=== PATIENT | female | born 1935 | race Hispanic/Latino ===

== ENCOUNTER 2018-05-19 14:54 | Emergency (ER) | payer MEDICARE ==
[2018-05-19 15:10] VITALS: RESP 18
--- NOTE | 2018-05-19 16:28 | ED PDOC ---
Arrival/HPI - General Chief Complaint: Upper Extremity Problem/Injury Time Seen by Provider: 05/19/18 15:10 Historian: Patient - History of Present Illness Narrative History of Present Illness (Text): 05/19/18 16:23 Pt is an 82 yr old female with PMH of COPD who presents to the ED for a warm, red and swollen elbow s/p recent emergency admission in [place] for COPD exacerbation about a week ago. Pt reports that EMS forced an IV into her right antecubital which apparently bled profusely at the time. The IV was kept in place the entire time she was admitted however anther site/arm was used for blood draws and medication as per pt. She now has worsening pain and swelling of the right antecubital that keeps her up at night. Denies chest pain, sob, fever, chills, IV drug use, change in hand or arm sensation or motor function or trauma. Time/Duration: 1 week Symptom Onset: Gradual Symptom Course: Unchanged Quality: Pressure Severity Level: 3 Activities at Onset: Rest Context: Home Past Medical History - Provider Review Nursing Documentation Reviewed: Yes - Travel History Have you recently traveled outside [place] w/in the past 3 mons?: No - Infectious Disease Hx of Infectious Diseases: None - Reproductive Menopause: Yes - Cardiac Hx Hypertension: Yes - Pulmonary Hx Respiratory Disorders: Yes Hx Chronic Obstructive Pulmonary Disease (COPD): Yes - Neurological Hx Neurological Disorder: Yes Hx Transient Ischemic Attacks (TIA): Yes - HEENT Hx Deafness: Yes (hearing aid rt ear) - Renal Hx Renal Disorder: No - Psychiatric Hx Psychophysiologic Disorder: No Hx Substance Use: No - Surgical History Hx Hysterectomy: Yes Other/Comment: rt breast ca& lumpectomy - Anesthesia Hx Anesthesia: Yes Hx Anesthesia Reactions: No Family/Social History - Physician Review Nursing Documentation Reviewed: Yes Family/Social History: Unknown Family HX Smoking Status: Unknown If Ever Smoked Hx Alcohol Use: No Hx Substance Use: No Allergies/Home Meds Allergies/Adverse Reactions: Allergies iodine Allergy (Verified 05/19/18 15:11) RASH Iodine and Iodide Containing Produc Allergy (Verified 05/19/18 15:11) RASH Home Medications: Home Meds Medication Instructions Recorded Confirmed Aspirin [Ecotrin] 81 mg PO DAILY 05/19/18 05/19/18 Clopidogrel [Plavix] 75 mg PO DAILY 05/19/18 05/19/18 amLODIPine [Norvasc] 5 mg PO DAILY 05/19/18 05/19/18 Review of Systems - Review of Systems Constitutional: Normal. absent: Fevers Eyes: Normal ENT: Normal Respiratory: Normal. absent: SOB Cardiovascular: Normal. absent: Chest Pain Gastrointestinal: Normal. absent: Abdominal Pain Genitourinary Female: Normal Musculoskeletal: Normal. absent: Arthralgias, Joint Swelling Skin: Normal, Cellulitis (Right antecubital post IV placement) Neurological: Normal. absent: Headache Endocrine: Normal. absent: Diaphoresis Hemo/Lymphatic: Normal, Easy Bleeding (on plavix). absent: Adenopathy Psychiatric: Normal Physical Exam Vital Signs Reviewed: Yes Vital Signs Temp Pulse Resp BP Pulse Ox 05/19/18 18:15 98.6 F 82 18 117/82 99 05/19/18 15:02 98.7 F 70 18 113/66 97 Temperature: Afebrile Blood Pressure: Normal Pulse: Regular Respiratory Rate: Normal Appearance: Positive for: Well-Appearing, Non-Toxic, Comfortable Pain Distress: Mild Mental Status: Positive for: Alert and Oriented X 3 - Systems Exam Head: Present: Atraumatic, Normocephalic Neck: Present: Normal Range of Motion Respiratory/Chest: Present: Clear to Auscultation, Good Air Exchange. No: Respiratory Distress, Accessory Muscle Use Cardiovascular: Present: Regular Rate and Rhythm, Normal S1, S2. No: Murmurs Abdomen: Present: Normal Bowel Sounds. No: Tenderness, Distention, Peritoneal Signs Back: Present: Normal Inspection Upper Extremity: Present: Normal Inspection, Normal ROM, NORMAL PULSES, Tenderness, Swelling, Erythema, Neurovascularly Intact, Temperature Abnormalties , Capillary Refill < 2s, Norm 2-Pt Discrimination. No: Cyanosis, Edema, Deformity Lower Extremity: Present: Normal Inspection, NORMAL PULSES. No: Edema Neurological: Present: GCS=15, CN II-XII Intact, Speech Normal Skin: Present: Warm, Dry, Normal Color, Other (right antecubital aspect extending 2cm inferior to crease; erythema, edema and firm subdermal tissue; no fluctuant area or drainage ). No: Rashes Psychiatric: Present: Alert, Oriented x 3, Normal Insight, Normal Concentration Medical Decision Making ED Course and Treatment: 05/19/18 16:28 Impression Pt is an 82 yr old female with PMH of COPD who presents to the ED for a warm, red and swollen elbow s/p recent emergency admission in [place] for COPD exacerbation about a week ago. Likely extravisation at IV site causing fibrosis but will consider cellulitis and foreign body Plan plain film of right elbow Ancef 1g IM assess and dispo Progress note 05/19/18 17:48 RIGHT ELBOW XR UNREMARKABLE for foreign body Pt is walking around and ready to go home; discussed findings with pt and advised to take Clindamycin x 5 days; dose given stat take Tylenol Xtra strength for pain Ice 15 mins on and 15 mins off VSS on d/c f/u with PMD in next 2 days return to ER if worsening pain, fever, change in sensation of right UE - RAD Interpretation Narrative RAD Interpretations (Text): 05/19/18 17:48 PROCEDURE: Radiographs of the right elbow. HISTORY: Elbow pain COMPARISON: No prior. FINDINGS: BONES: Normal. No fracture. JOINTS: Normal. No osteoarthritis. SOFT TISSUES: Normal. JOINT EFFUSION: None. OTHER FINDINGS: None. IMPRESSION: Unremarkable radiographs of the right elbow. Radiology Orders: 05/19/18 16:16 ELBOW RIGHT 3 VIEWS ROUTINE [RAD] Stat - Medication Orders Current Medication Orders: Discontinued Medications Clindamycin HCl (Cleocin) 300 mg PO STAT STA PRN Reason: Protocol Stop: 05/19/18 16:39 Last Admin: 05/19/18 16:49 Dose: 300 mg Disposition/Present on Arrival - Present on Arrival Any Indicators Present on Arrival: Yes History of DVT/PE: No History of Uncontrolled Diabetes: No Urinary Catheter: No History of Decub. Ulcer: No History Surgical Site Infection Following: None - Disposition Have Diagnosis and Disposition been Completed?: Yes Diagnosis: Cellulitis of right elbow, Extravasation injury, Extravasation injury of intravenous catheter site with other complication Disposition: HOME/ ROUTINE Disposition Time: 17:51 Patient Plan: Discharge Condition: GOOD Discharge Instructions (ExitCare): Cellulitis (Skin Infection), Adult (DC), IV Infiltration Additional Instructions: KRIS URENA, thank you for letting us take care of you today. Your provider was Harish Bennett MD and ROSALINE Vaughan and you were treated for RIGHT ARM CELLULITIS. The emergency medical care you received today was directed at your acute symptoms. If you were prescribed any medication, please fill it and take as directed. It may take several days for your symptoms to resolve. Return to the Emergency Department if your symptoms worsen, do not improve, or if you have any other problems. PLEASE SEE YOUR PRIMARY CARE DOCTOR IN THE NEXT FEW DAYS FOR FOLLOW UP CARE APPLY COLD PACK TO RIGHT ARM 15 MINS ON AND 15 MINS OFF; TAKE THE ANTIBIOTIC DIRECTED UNTIL FINISHED; TAKE TYLENOL FOR PAIN CONTROL Please contact your doctor or call one of the physicians/clinics you have been referred to that are listed on the Patient Visit Information form that is included in your discharge packet. Bring any paperwork you were given at discharge with you along with any medications you are taking to your follow up visit. Our treatment cannot replace ongoing medical care by a primary care provider outside of the emergency department. Thank you for allowing the [facility] team to be part of your care today. If you had an X-Ray or CT scan: A Radiologist will review the ED reading if any change in treatment is needed we will contact you. Prescriptions: Acetaminophen [Non-Aspirin Pain Relief] 500 mg PO Q6 #20 tablet Clindamycin [Cleocin] 300 mg PO QID 7 Days #28 cap Forms: [employer] (Georgian)
--- NOTE | 2018-05-19 17:08 | RAD ---
PROCEDURE: Radiographs of the right elbow. HISTORY: Elbow pain COMPARISON: No prior. FINDINGS: BONES: Normal. No fracture. JOINTS: Normal. No osteoarthritis. SOFT TISSUES: Normal. JOINT EFFUSION: None. OTHER FINDINGS: None. IMPRESSION: Unremarkable radiographs of the right elbow.
[2018-05-19 18:36] VITALS: BP 117/82; PULSE 82; TEMP 98.6; O2SAT 99
== END 2018-05-19 18:15 | disposition home or self-care (01) ==
LOC: ED 14:54
DX: L03.113 Cellulitis of right upper limb (principal); T80.89XA Other complications following infusion, transfusion and therapeutic injection, initial encounter; Y84.8 Other medical procedures as the cause of abnormal reaction of the patient, or of later complication, without mention of misadventure at the time of the procedure; Y92.238 Other place in hospital as the place of occurrence of the external cause

== ENCOUNTER 2018-05-24 13:56 | Inpatient (IN) | payer MEDICARE, OTHER ==
[2018-05-24 13:59] VITALS: BMI 20.6
[2018-05-24 15:56] LABS: BASO # 0.03 K/mm3 (0.0-2.0); BASO % 0.3 % (0.0-3.0); EOS # 0.7 (0.0-0.7); EOS % 6.1 % (1.5-5.0); GRAN # 7.85 (1.4-6.5); GRAN % 71.6 % (50.0-68.0); HEMOGLOBIN 13.7 g/dL (12.0-16.0); LYMPH # 1.9 (1.2-3.4); LYMPH % 17.7 % (22.0-35.0); MEAN CELL VOLUME 83.5 fl (80.0-105.0); MEAN CORPUSCULAR HEMOGLOBIN 27.9 pg (25.0-35.0); MEAN CORPUSCULAR HGB CONC 33.4 g/dl (31.0-37.0); MONO # 0.5 (0.1-0.6); MONO % 4.3 % (1.0-6.0); RBC 4.91 10^6/uL (3.5-6.1); RED CELL DISTRIBUTION WIDTH 15.4 % (11.5-14.5)
[2018-05-24 16:06] LABS: ALB/GLOB RATIO 0.9 (1.1-1.8); ALBUMIN 3.7 g/dL (3.0-4.8); ALT/SGPT 32 U/L (7-56); AST/SGOT 19 U/L (14-36); BLOOD UREA NITROGEN 13 mg/dL (7-21); CALCIUM 9.5 mg/dL (8.4-10.5); GFR AFRICAN-AMERICAN > 60; GFR NON-AFRICAN AMERICAN 53
--- NOTE | 2018-05-24 16:50 | US ---
PROCEDURE: Right upper extremity venous US CLINICAL HISTORY: Arm pain and swelling Evaluate for deep venous thrombosis. PHYSICIAN(S): Manny Zamora M.D FINDINGS: Above the elbow, there is superficial thrombophlebitis in a left basilic vein branch with associated edema. No sonographic evidence of deep venous thrombosis is appreciated central IMPRESSION: 1. Acute superficial thrombophlebitis, left basilic vein branch above the elbow 2. No evidence of deep venous thrombosis.
[2018-05-24] MEDS ORDERED: Vancomycin 1gm in NS 250ml 1 GM/250 ML BAG IVPB STA (17:29)
[2018-05-24] MEDS ORDERED: Piperacillin/Tazobact 3.375 gm 100 ML IVPB STA (17:29)
--- NOTE | 2018-05-24 18:54 | CP.PCM.HP ---
<Jung Thompson - Last Filed: 05/24/18 20:28> History of Present Illness - History of Present Illness History of Present Illness: Ms. Burnett is a 82 year old female with PMH of COPD, asthma, TIA on plavix, and HTN presenting to the ED for a red, swollen right elbow. Patient states that 3 weeks ago, she was admitted at a hospital in [place] for a COPD exacerbation and in the ambulance, EMS placed an IV into her right antecubital and bled profusely. As per patient, the IV was placed in her right arm for 4 days while she is in the hospital however, they started a new IV line on her left arm to be used to administer medication. The patient cam in to the ED on 05/19 for pain and swelling of her right elbow and was sent home with clindamycin for 7 days and she finished 5 days course of the medication so far. The patient states that the swelling and pain is getting worse. She describes the pain to be 8/10 and achy all around her antecubital area and elbow. The patient denies any headaches, fevers, chills, shortness of breath, chest pain, abdominal pain, burning or difficulty urinating. PMD: Dr. Almonte Pharmacy: [facility] in [place] PMH: COPD, asthma, HTN, TIA on plavix Past surgical history: hysterectomy, lumpectomy Social history: Never smoked, drinks alcohol occasionally, denies use of recreational drugs. Family history: Mother of cancer, sister of neck cancer at 59 yo, brother of blood cancer at 42 yo. 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 Allergie: Iodine Home meds: Amlodipine 5mg Clopidogrel 5mg ASA 81 Acetaminophen Symbicort PRN Albuterol PRN Present on Admission - Present on Admission Any Indicators Present on Admission: No History of DVT/PE: No History of Uncontrolled Diabetes: No Urinary Catheter: No Decubitus Ulcer Present: No Review of Systems - Review of Systems Review of Systems: A 12 point review of systems was negative except for pertinent positive as discussed in the HPI Past Patient History - Infectious Disease Hx of Infectious Diseases: None - Tetanus Immunizations Tetanus Immunization: Unknown - Past Social History Smoking Status: Never Smoked - CARDIAC Hx Hypertension: Yes - PULMONARY Hx Respiratory Disorders: Yes Hx Chronic Obstructive Pulmonary Disease (COPD): Yes - NEUROLOGICAL Hx Neurological Disorder: Yes Hx Transient Ischemic Attacks (TIA): Yes - HEENT Hx Deafness: Yes (hearing aid rt ear) - RENAL Hx Chronic Kidney Disease: No - PSYCHIATRIC Hx Psychophysiologic Disorder: No Hx Substance Use: No - SURGICAL HISTORY Hx Hysterectomy: Yes Other/Comment: rt breast ca& lumpectomy - ANESTHESIA Hx Anesthesia: Yes Hx Anesthesia Reactions: No Meds Allergies/Adverse Reactions: Allergies Allergy/AdvReac Type Severity Reaction Status Date / Time iodine Allergy RASH Verified 05/19/18 15:11 Iodine and Iodide Containing Allergy RASH Verified 05/19/18 15:11 Produc Physical Exam - Constitutional Appears: No Acute Distress - Head Exam Head Exam: ATRAUMATIC, NORMAL INSPECTION - Eye Exam Eye Exam: Normal appearance, PERRL - ENT Exam ENT Exam: Mucous Membranes Moist - Respiratory Exam Respiratory Exam: Clear to Auscultation Bilateral. absent: Rales, Rhonchi, Wheezes - Cardiovascular Exam Cardiovascular Exam: REGULAR RHYTHM, +S1, +S2. absent: Gallop, Rubs, Systolic Murmur - GI/Abdominal Exam GI & Abdominal Exam: Normal Bowel Sounds, Soft. absent: Tenderness - Extremities Exam Extremities exam: Negative for: calf tenderness, pedal edema - Neurological Exam Neurological exam: Alert, CN II-XII Intact, Oriented x3 - Psychiatric Exam Psychiatric exam: Normal Affect, Normal Mood - Skin Skin Exam: Dry, Normal Color, Warm Additional comments: Right antecubital aspect extending 2cm inferior to crease; erythema, edema and firm subdermal tissue; no fluctuant area or drainage Results - Vital Signs Recent Vital Signs: Last Vital Signs Temp 98.2 F 05/24/18 13:58 Pulse 84 05/24/18 13:58 Resp 18 05/24/18 13:58 BP 147/73 05/24/18 13:58 Pulse Ox 98 05/24/18 13:58 - Labs Result Diagrams: 05/24/18 15:35 05/24/18 15:35 Labs: Laboratory Results - last 24 hr 05/24/18 05/24/18 15:35 15:35 WBC 11.0 RBC 4.91 Hgb 13.7 Hct 41.0 MCV 83.5 MCH 27.9 MCHC 33.4 RDW 15.4 H Plt Count 364 MPV 9.0 Gran % 71.6 H Lymph % (Auto) 17.7 L [place] % (Auto) 4.3 Eos % (Auto) 6.1 H Baso % (Auto) 0.3 Gran # 7.85 H Lymph # (Auto) 1.9 [place] # (Auto) 0.5 Eos # (Auto) 0.7 Baso # (Auto) 0.03 Sodium 146 Potassium 4.7 Chloride 105 Carbon Dioxide 30 Anion Gap 15 BUN 13 Creatinine 1.0 Est GFR ( Amer) > 60 Est GFR (Non-Af Amer) 53 Random Glucose 99 Calcium 9.5 Total Bilirubin 0.3 AST 19 ALT 32 Alkaline Phosphatase 114 Total Protein 7.6 Albumin 3.7 Globulin 3.9 Albumin/Globulin Ratio 0.9 L Assessment & Plan - Assessment and Plan (Free Text) Assessment: Ms. Burnett is a 82 year old female with PMH of COPD, asthma, HTN, and TIA on plavix presenting with swelling and pain of the right antecubital area of the arm. Plan: Extravisation of IV site - Extremity u/s showed acute superficial thrombophlebitis of left basilic vein above the elbow. No DVT. - Patient is abrebile and wbc is 11. - Elbow xray (05/19) was negative. - Upper extremity CAT scan: pending - If CT shows abscess, consult surgery. - In Ed, Vancomycin IV 1gr/250ml - Start Zosyn IV and Vancomycin IV - Order Vancomycin trough after 3rd dose and before 4th dose - Blood culture ordered. - ID consulted, recs appreciated - EKG pending, PT and PTT ordered - ESR, CRP ordered Hypertension - Hold Amlodipine for now - monitor BP History of TIA - Continue with ASA, clopidogrel - Lipid panel ordered - Hb a1c ordered History of COPD and Asthma - Patient is stable - Ventolin PRN GI/DVT prophylaxis - Protonix - Lovenox subQ - SCD's Patient seen, examined, and case discussed with Dr. Amezcua <Gregg Amezcua - Last Filed: 05/26/18 16:28> Results - Vital Signs Recent Vital Signs: Last Vital Signs Temp 97.4 F L 05/26/18 07:44 Pulse 68 05/26/18 07:44 Resp 18 05/26/18 07:44 BP 135/67 05/26/18 07:44 Pulse Ox 96 05/26/18 07:44 - Labs Result Diagrams: 05/26/18 05:30 05/26/18 05:30 Labs: Laboratory Results - last 24 hr 05/26/18 05/26/18 05/26/18 05:30 05:30 12:30 WBC 9.0 RBC 4.40 Hgb 12.0 Hct 36.6 MCV 83.2 MCH 27.3 MCHC 32.8 RDW 15.1 H Plt Count 362 MPV 8.9 Gran % 70.6 H Lymph % (Auto) 16.7 L [place] % (Auto) 6.0 Eos % (Auto) 6.4 H Baso % (Auto) 0.3 Gran # 6.37 Lymph # (Auto) 1.5 [place] # (Auto) 0.5 Eos # (Auto) 0.6 Baso # (Auto) 0.03 Sodium 139 Potassium 3.9 Chloride 102 Carbon Dioxide 30 Anion Gap 11 BUN 7 Creatinine 0.9 Est GFR ( Amer) > 60 Est GFR (Non-Af Amer) > 60 Random Glucose 111 H Calcium 8.8 Magnesium 2.1 Total Bilirubin 0.4 Direct Bilirubin 0.2 AST 20 ALT 26 Alkaline Phosphatase 86 Total Protein 6.8 Albumin 3.3 Globulin 3.5 Albumin/Globulin Ratio 0.9 L Urine Color Yellow Urine Appearance Clear Urine pH 6.0 Ur Specific Center 1.020 Urine Protein Trace H Urine Glucose (UA) Negative Urine Ketones Negative Urine Blood Negative Urine Nitrate Negative Urine Bilirubin Negative Urine Urobilinogen 0.2 Ur Leukocyte Esterase Negative Urine RBC 0 - 2 Urine WBC 0 - 2 Ur Epithelial Cells 4 - 5 Urine Bacteria Mod Attending/Attestation - Attestation I have personally seen and examined this patient.: Yes I have fully participated in the care of the patient.: Yes I have reviewed all pertinent clinical information: Yes Notes (Text): Please see/read my dictated notes.
--- NOTE | 2018-05-24 19:02 | ED PDOC ---
Arrival/HPI - General Chief Complaint: Upper Extremity Problem/Injury Time Seen by Provider: 05/24/18 15:01 Historian: Patient - History of Present Illness Narrative History of Present Illness (Text): 05/24/18 18:59 82-year-old female presents today with right arm pain swelling and erythema. Patient states 3-4 weeks ago she had an IV inserted in the right arm and was hospitalized for 4 days for COPD exacerbation. Patient states on May 19 she came to the emergency room because the arm suddenly became red and swollen and painful. Patient states she had x-rays of the right arm and then was placed on clindamycin for infection in the arm. Patient states she completed a course of clindamycin and she still is having pain redness and swelling. Patient denies fevers or chills. Patient states there is no improvement in the right arm. pt denies cp or sob. no vomiting/diarrhea. no abdominal pain. pt denies numbness, weakness, tingling in extremities. no other complaints. Past Medical History - Provider Review Nursing Documentation Reviewed: Yes - Travel History Have you recently traveled outside [place] w/in the past 3 mons?: No - Infectious Disease Hx of Infectious Diseases: None - Tetanus Immunization Tetanus Immunization: Unknown - Cardiac Hx Hypertension: Yes - Pulmonary Hx Respiratory Disorders: Yes Hx Chronic Obstructive Pulmonary Disease (COPD): Yes - Neurological Hx Neurological Disorder: Yes Hx Transient Ischemic Attacks (TIA): Yes - HEENT Hx Deafness: Yes (hearing aid rt ear) - Renal Hx Renal Disorder: No - Psychiatric Hx Psychophysiologic Disorder: No Hx Substance Use: No - Surgical History Hx Hysterectomy: Yes Other/Comment: rt breast ca& lumpectomy - Anesthesia Hx Anesthesia: Yes Hx Anesthesia Reactions: No Family/Social History - Physician Review Nursing Documentation Reviewed: Yes Family/Social History: Unknown Family HX Smoking Status: Unknown If Ever Smoked Hx Alcohol Use: No Hx Substance Use: No Allergies/Home Meds Allergies/Adverse Reactions: Allergies iodine Allergy (Verified 05/19/18 15:11) RASH Iodine and Iodide Containing Produc Allergy (Verified 05/19/18 15:11) RASH Home Medications: Home Meds Medication Instructions Recorded Confirmed Aspirin [Ecotrin] 81 mg PO DAILY 05/19/18 05/24/18 Clopidogrel [Plavix] 75 mg PO DAILY 05/19/18 05/24/18 amLODIPine [Norvasc] 5 mg PO DAILY 05/19/18 05/24/18 Review of Systems - Review of Systems Constitutional: absent: Fatigue, Fevers Respiratory: absent: SOB, Cough Cardiovascular: absent: Chest Pain, Palpitations Gastrointestinal: absent: Abdominal Pain, Vomiting Genitourinary Female: absent: Dysuria Musculoskeletal: Arthralgias Skin: Cellulitis. absent: Pruritis Neurological: absent: Headache, Dizziness Psychiatric: absent: Anxiety, Depression Physical Exam Vital Signs Reviewed: Yes Vital Signs Temp Pulse Resp BP Pulse Ox 05/24/18 13:58 98.2 F 84 18 147/73 98 Temperature: Afebrile Blood Pressure: Normal Pulse: Regular Respiratory Rate: Normal Appearance: Positive for: Well-Appearing, Non-Toxic, Comfortable Pain Distress: None Mental Status: Positive for: Alert and Oriented X 3 - Systems Exam Head: Present: Atraumatic Mouth: Present: Moist Mucous Membranes Neck: Present: Normal Range of Motion Respiratory/Chest: Present: Clear to Auscultation, Good Air Exchange. No: Respiratory Distress, Accessory Muscle Use Cardiovascular: Present: Regular Rate and Rhythm, Normal S1, S2. No: Murmurs Upper Extremity: Present: NORMAL PULSES, Tenderness (right arm; + erythema and induration along the volar aspect of the proximal forearm, + swelling over anticubital fossa. no fluctuance, + warmth. ), Swelling, Erythema, Neurovascularly Intact, Capillary Refill < 2s Neurological: Present: GCS=15, Speech Normal Skin: Present: Warm, Dry, Normal Color Psychiatric: Present: Alert, Oriented x 3 Medical Decision Making ED Course and Treatment: 05/24/18 19:18 82-year-old female with right arm pain and swelling status post IV insertion 3 weeks prior cbc; wnl cmp; wnl blood cultures pending Duplex right arm: FINDINGS: Above the elbow, there is superficial thrombophlebitis in a left basilic vein branch with associated edema. No sonographic evidence of deep venous thrombosis is appreciated central IMPRESSION: 1. Acute superficial thrombophlebitis, left basilic vein branch above the elbow 2. No evidence of deep venous thrombosis pt started on vancomycin and zosyn IV tramadol given for pain case discussed with dr. villeda; accepts admission for failure of outpatient abx with superfical thrombophlebitis with superimposed cellulitis. Dr. Villeda is requesting CAT scan of the right arm. Patient was seen and evaluated by dr. lerma Impression: Superficial thrombophlebitis, cellulitis, arm, failure of outpatient abx admit to med/surg - Lab Interpretations Lab Results: 05/24/18 15:35 05/24/18 15:35 Lab Results 05/24/18 15:35: WBC 11.0, RBC 4.91, Hgb 13.7, Hct 41.0, MCV 83.5, MCH 27.9, MCHC 33.4, RDW 15.4 H, Plt Count 364, MPV 9.0, Gran % 71.6 H, Lymph % (Auto) 17.7 L, [place] % (Auto) 4.3, Eos % (Auto) 6.1 H, Baso % (Auto) 0.3, Gran # 7.85 H , Lymph # (Auto) 1.9, [place] # (Auto) 0.5, Eos # (Auto) 0.7, Baso # (Auto) 0.03 05/24/18 15:35: Sodium 146, Potassium 4.7, Chloride 105, Carbon Dioxide 30, Anion Gap 15, BUN 13, Creatinine 1.0, Est GFR ( Amer) > 60, Est GFR (Non- Af Amer) 53, Random Glucose 99, Calcium 9.5, Total Bilirubin 0.3, AST 19, ALT 32 , Alkaline Phosphatase 114, Total Protein 7.6, Albumin 3.7, Globulin 3.9, Albumin/Globulin Ratio 0.9 L - RAD Interpretation Radiology Orders: 05/24/18 15:01 DUPLEX UPPER EXTRM VEIN RIGHT [US] Stat - Medication Orders Current Medication Orders: Vancomycin HCl (Vancomycin 1gm) 1 gm in 250 mls @ 167 mls/hr IVPB STAT STA PRN Reason: Protocol Stop: 05/24/18 18:58 Discontinued Medications Piperacillin Sod/Tazobactam Sod (Zosyn 3.375 In Ns 100ml) 100 mls @ 200 mls/hr IVPB STAT STA PRN Reason: Protocol Stop: 05/24/18 17:58 Last Admin: 05/24/18 18:09 Dose: 200 mls/hr eMAR Start Stop Document 05/24/18 18:09 GMD (Rec: 05/24/18 18:09 GMD [email or web address] Intravenous Solution Start Date 05/24/18 Start Time 18:09 End Date 05/24/18 End time 18:39 Total Infusion Time 30 Tramadol HCl (Ultram) 50 mg PO STAT STA Stop: 05/24/18 18:52 Disposition/Present on Arrival - Present on Arrival Any Indicators Present on Arrival: No History of DVT/PE: No History of Uncontrolled Diabetes: No Urinary Catheter: No History of Decub. Ulcer: No History Surgical Site Infection Following: None - Disposition Have Diagnosis and Disposition been Completed?: Yes Diagnosis: Cellulitis of arm, Superficial thrombophlebitis of arm, Failure of outpatient treatment Disposition: HOSPITALIZED Disposition Time: 17:35 Patient Plan: Admission Condition: FAIR
[2018-05-24] MEDS ORDERED: Enoxaparin 60 mg Syringe SC STA (19:57)
[2018-05-24] MEDS ORDERED: Albuterol HFA 90 mcg/actuation (8 g) IH PRN (20:26)
[2018-05-24] MEDS ORDERED: Albuterol 0.083% Inhal Sol (2.5 mg/3 mL) UD IH PRN (20:32)
[2018-05-24] MEDS ORDERED: Mupirocin 2% Ointment 15 GM TUBE TOP SCH (21:00)
[2018-05-24] MEDS: Mupirocin 2% Ointment 15 GM TUBE TOP SCH (21:33)
--- NOTE | 2018-05-24 21:43 | CP.PCM.CON ---
<Kadie Voss - Last Filed: 05/24/18 21:36> History of Present Illness - History of Present Illness History of Present Illness: General Surgery consult note for Dr. Queen Consulted for: right elbow thrombophlebitis with cellulitis Patient is an 82F who was recently hospitalized for 4 days two weeks ago for respiratory distress during which time she had an IV placed in her right anticubital fossa. After it was removed she noted some swelling and bruising in the area and was told to put ice on it. The area became more swollen and erythematous so she came to the [facility] [place] [facility] ER and was given PO clindamycin for outpatient treatment. Patient states erythema got better but the pain and swelling only wrosened after 5 days of antibiotic treatment so she came again to the ER. Patient denies any drainage from the area. Patient denies any fevers , chills, chest pain, SOB, nausea, vomiting, numbness or tingling in her fingers or weakness in her hand. Patient underwent an ultrasound which revealed thrombophlebitis of her right basilic vein. CT of the limb showed cellulitis but no evidence of abscess PMH: TIA, COPD, HTN, HLD, R Breast cancer PSH: right breast lumpectomy, hysterectomy ALL: iodine Social: prior cigarette smoking >60 years ago, ocassional ETOH, no illicit substances Review of Systems - Review of Systems All systems: reviewed and no additional remarkable complaints except (as per HPI ) Past Patient History - Infectious Disease Hx of Infectious Diseases: None - Tetanus Immunizations Tetanus Immunization: Unknown - Past Medical History & Family History Past Medical History?: Yes Past Family History: Reviewed and not pertinent - Past Social History Smoking Status: Never Smoked - CARDIAC Hx Hypertension: Yes - PULMONARY Hx Respiratory Disorders: Yes Hx Chronic Obstructive Pulmonary Disease (COPD): Yes - NEUROLOGICAL Hx Neurological Disorder: Yes Hx Transient Ischemic Attacks (TIA): Yes - HEENT Hx Deafness: Yes (hearing aid rt ear) - RENAL Hx Chronic Kidney Disease: No - PSYCHIATRIC Hx Psychophysiologic Disorder: No Hx Substance Use: No - SURGICAL HISTORY Hx Hysterectomy: Yes Other/Comment: rt breast ca& lumpectomy - ANESTHESIA Hx Anesthesia: Yes Hx Anesthesia Reactions: No Meds Allergies/Adverse Reactions: Allergies Allergy/AdvReac Type Severity Reaction Status Date / Time iodine Allergy RASH Verified 05/19/18 15:11 Iodine and Iodide Containing Allergy RASH Verified 05/19/18 15:11 Produc - Medications Medications: Current Medications Albuterol/Ipratropium (Duoneb 3 Mg/0.5 Mg (3 Ml) Ud) 3 ml IH Q6H [facility] Stop: 06/18/18 14:31 Arformoterol Tartrate (Brovana) 15 mcg IH [id number] [facility] Aspirin (Ecotrin) 81 mg PO DAILY [facility] Atorvastatin Calcium (Lipitor) 40 mg PO DAILY [facility] Clopidogrel Bisulfate (Plavix) 75 mg PO DAILY [facility] Enoxaparin Sodium (Lovenox) 40 mg SC DAILY [facility] PRN Reason: Protocol Vancomycin HCl (Vancomycin 1gm) 1 gm in 250 mls @ 167 mls/hr IVPB DAILY [facility] PRN Reason: Protocol Piperacillin Sod/Tazobactam Sod (Zosyn 3.375 In Ns 100ml) 100 mls @ 200 mls/hr IVPB Q6 [facility] PRN Reason: Protocol Stop: 05/25/18 06:29 Mupirocin (Bactroban Ointment) 0 gm TOP TID [facility] Pantoprazole Sodium (Protonix Ec Tab) 40 mg PO 0600 [facility] Physical Exam - Constitutional Appears: Well, Non-toxic, No Acute Distress - Head Exam Head Exam: ATRAUMATIC, NORMOCEPHALIC - Eye Exam Eye Exam: Normal appearance. absent: Conjunctival injection, Scleral icterus - ENT Exam ENT Exam: Mucous Membranes Moist, Normal Oropharynx - Respiratory Exam Respiratory Exam: NORMAL BREATHING PATTERN. absent: Accessory Muscle Use, Respiratory Distress - Cardiovascular Exam Cardiovascular Exam: RRR - GI/Abdominal Exam GI & Abdominal Exam: Soft. absent: Distended, Tenderness - Extremities Exam Extremities exam: Positive for: pedal pulses present. Negative for: calf tenderness, pedal edema - Neurological Exam Neurological exam: Alert, Oriented x3 - Psychiatric Exam Psychiatric exam: Normal Affect, Normal Mood - Skin Skin Exam: Dry, Intact, Normal Color, Warm Additional comments: except for area approximately 7cm in diameter of erythema in the antecubital fossa with induration, swelling, with central area of raised swelling with no palpable fluctuance or expressible drainage Results - Vital Signs Recent Vital Signs: Last Vital Signs Temp 98.2 F 05/24/18 13:58 Pulse 84 05/24/18 20:11 Resp 18 05/24/18 20:11 BP 139/68 05/24/18 19:42 Pulse Ox 96 05/24/18 20:11 - Labs Result Diagrams: 05/24/18 15:35 05/24/18 15:35 Assessment & Plan - Assessment and Plan (Free Text) Assessment: 82F with thrombophlebitis of the right basilic vein and overlying cellulitis Plan: -No surgical indication for cellulitis. Continue to monitor for any development of abscess -Apply warm compresses to the area -Continue DVT ppx and blood thinner -antibiotics per ID -PRN pain medication Will discuss with Dr. Queen, further recommendations per him Kadie Voss, PGY2 <Tae Queen - Last Filed: 05/25/18 08:44> Meds - Medications Medications: Current Medications Albuterol/Ipratropium (Duoneb 3 Mg/0.5 Mg (3 Ml) Ud) 3 ml IH Q6H [facility] Stop: 06/18/18 14:31 Last Admin: 05/25/18 07:30 Dose: 3 ml Arformoterol Tartrate (Brovana) 15 mcg IH [id number] [facility] Last Admin: 05/25/18 07:30 Dose: 15 mcg Aspirin (Ecotrin) 81 mg PO DAILY [facility] Atorvastatin Calcium (Lipitor) 40 mg PO DAILY [facility] Clopidogrel Bisulfate (Plavix) 75 mg PO DAILY [facility] Enoxaparin Sodium (Lovenox) 40 mg SC DAILY [facility] PRN Reason: Protocol Linezolid (Zyvox 600mg/300ml D5w) 600 mg in 300 mls @ 200 mls/hr IVPB Q12 [facility] PRN Reason: Protocol Stop: 05/31/18 23:31 Last Admin: 05/25/18 00:09 Dose: 200 mls/hr Mupirocin (Bactroban Ointment) 0 gm TOP TID [facility] Last Admin: 05/24/18 21:33 Dose: 1 applic Pantoprazole Sodium (Protonix Ec Tab) 40 mg PO 0600 [facility] Last Admin: 05/25/18 05:26 Dose: 40 mg Results - Vital Signs Recent Vital Signs: Last Vital Signs Temp 97.6 F 05/25/18 07:36 Pulse 61 05/25/18 07:36 Resp 19 05/25/18 07:36 BP 131/73 05/25/18 07:36 Pulse Ox 95 05/25/18 07:36 - Labs Result Diagrams: 05/25/18 05:45 05/25/18 05:45 Labs: Laboratory Results - last 24 hr 05/24/18 05/24/18 05/24/18 20:24 21:45 21:45 WBC RBC Hgb Hct MCV MCH MCHC RDW Plt Count MPV Gran % Lymph % (Auto) [place] % (Auto) Eos % (Auto) Baso % (Auto) Gran # Lymph # (Auto) [place] # (Auto) Eos # (Auto) Baso # (Auto) ESR 100 H PT 12.6 H INR 1.10 H APTT 37.4 H Sodium Potassium Chloride Carbon Dioxide Anion Gap BUN Creatinine Est GFR ( Amer) Est GFR (Non-Af Amer) Random Glucose Lactic Acid Calcium Magnesium Total Bilirubin Direct Bilirubin AST ALT Alkaline Phosphatase Total Protein Albumin Globulin Albumin/Globulin Ratio Triglycerides Cholesterol LDL Cholesterol Direct HDL Cholesterol Urine Color Yellow Urine Appearance Sl cloudy Urine pH 5.5 Ur Specific Byron >= 1.030 Urine Protein Trace H Urine Glucose (UA) Negative Urine Ketones Negative Urine Blood Trace-intact H Urine Nitrate Positive H Urine Bilirubin Negative Urine Urobilinogen 0.2 Ur Leukocyte Esterase Trace H Urine RBC 0 - 2 Urine WBC 5 - 10 Ur Epithelial Cells 1 - 3 Urine Bacteria Many 05/24/18 05/25/18 05/25/18 21:45 05:45 05:45 WBC 8.1 D RBC 4.15 Hgb 11.2 L D Hct 34.4 L MCV 82.9 MCH 27.0 MCHC 32.6 RDW 15.3 H Plt Count 329 MPV 8.8 Gran % 64.8 Lymph % (Auto) 22.1 [place] % (Auto) 5.6 Eos % (Auto) 7.3 H Baso % (Auto) 0.2 Gran # 5.22 Lymph # (Auto) 1.8 [place] # (Auto) 0.5 Eos # (Auto) 0.6 Baso # (Auto) 0.02 ESR PT INR APTT Sodium 139 Potassium 4.3 Chloride 103 Carbon Dioxide 28 Anion Gap 12 BUN 12 Creatinine 0.9 Est GFR ( Amer) > 60 Est GFR (Non-Af Amer) > 60 Random Glucose 101 Lactic Acid 0.9 Calcium 8.6 Magnesium 2.0 Total Bilirubin 0.2 Direct Bilirubin 0.2 AST 16 ALT 22 Alkaline Phosphatase 85 Total Protein 6.4 Albumin 3.1 Globulin 3.3 Albumin/Globulin Ratio 0.9 L Triglycerides 380 H Cholesterol 220 H LDL Cholesterol Direct 82 HDL Cholesterol 39 Urine Color Urine Appearance Urine pH Ur Specific Byron Urine Protein Urine Glucose (UA) Urine Ketones Urine Blood Urine Nitrate Urine Bilirubin Urine Urobilinogen Ur Leukocyte Esterase Urine RBC Urine WBC Ur Epithelial Cells Urine Bacteria Assessment & Plan - Assessment and Plan (Free Text) Assessment: Dx Left Basilic vein thrombophlebitis-cellulitis(No abscess) Conservative Rx for now This consult done under my direct supervision Nico Queen MD FACS
[2018-05-24 22:34] LABS: INR 1.1 (0.93-1.08); PARTIAL THROMBOPLASTIN TIME 37.4 Seconds (25.1-36.5); PROTHROMBIN TIME 12.6 SECONDS (9.4-12.5)
[2018-05-24] MEDS: Arformoterol 15 mcg/2 ml Inh Sol IH SCH (23:46)
[2018-05-25] MEDS ORDERED: Acetaminophen 650mg/20.3ml solution UD PO SCH
[2018-05-25] MEDS ORDERED: Piperacillin/Tazobact 3.375 gm 100 ML IVPB SCH
[2018-05-25] MEDS: Linezolid 600 mg in D5W 300 ml 600 MG/300 ML BAG IVPB SCH ×3 (00:09→21:10)
[2018-05-25] MEDS: Albuterol-Ipratrop 3 mg / 0.5 (3 ml) UD IH SCH ×4 (01:37→20:10)
--- NOTE | 2018-05-25 04:02 | HP ---
HISTORY OF PRESENT ILLNESS: The patient is an 82-year-old female who came to the emergency room complaining of worsening right antecubital area swelling. The patient was seen in the emergency room. The patient came to the emergency room today as an ambulatory walk-in complaining of worsening right arm swelling and pain and right antecubital area pain and swelling. The patient was seen in the emergency room on 05/19/2018 for the similar complaint, but patient stated that the symptoms getting worse and the patient is not responding to oral antibiotics given to her. The patient was admitted to [facility] for COPD about 3 weeks ago where EMS started an IV into her right antecubital area which bled and while the patient was hospitalized, the patient developed right antecubital area swelling. The patient today came in with worsening right antecubital area swelling, redness and pain despite being on oral antibiotics. REVIEW OF SYSTEMS: A 13-system review was done, pertinent positives, negatives dictated above. CODE STATUS: Full code. LIVING WILL AND ADVANCE DIRECTIVE: None. ALLERGIES: TO IODINE AND IODINE-CONTAINING PRODUCTS. Height is 5 feet 2 inches, weight is 113. BMI is 21. HOME MEDICATIONS: Clindamycin 300 mg 4 times daily, Ecotrin 81 mg daily, Tylenol p.r.n., Norvasc 5 mg, Plavix 75 mg daily, albuterol and Symbicort p.r.n. SOCIAL HISTORY: Positive for former smoking in teens and 21 years old. Denies alcohol. Denies substance abuse. PAST MEDICAL AND SURGICAL HISTORY: History of right breast carcinoma treated with tamoxifen, history of right lumpectomy, history of TIA, history of hypertension, history of hyperlipidemia, hypertriglyceridemia, history of chronic obstructive pulmonary disease, history of multiple pulmonary nodules on CAT scan, history of ____, history of degenerative joint disease of the cervical spine with foraminal narrowing, history of chronic microvascular ischemic disease of the brain. History of left renal cyst. The patient's past medical history is significant for history of hearing deficit, history of hysterectomy. PHYSICAL EXAMINATION: HEAD: Normocephalic, atraumatic. HEENT examination shows pink conjunctivae. Dry oral mucosa. No neck rigidity. CHEST: Kyphosis. LUNGS: Shows positive rhonchi, soft, wheezing bilaterally, posterior lung byrd. CARDIOVASCULAR: S1, S2, regular rhythm. Questionable soft systolic murmur in left sternal border, right second intercostal space, left second intercostal space. ABDOMEN: Soft. Positive bowel sound. GENITAILIA: Female. RECTAL: Deferred. EXTREMITIES: Lower extremity shows no pitting edema, no calf numbness, no Homans' sign. Right upper extremity shows positive swelling of the right antecubital area greater than almost around the size of a golf ball with severe erythema, swelling and extremely tender to touch area with tenderness and also swelling and tenderness of the distal right arm and proximal right forearm with some decreased range of motion and flexion, decreased flexion of the right elbow. NEUROLOGIC: The patient is alert, awake, oriented x3. Cranial nerves II-XII intact. MUSCULOSKELETAL: Shows a body mass index of 21. VASCULAR: Palpable pulses. Gait examination not tested. DIAGNOSTICS: CBC: WBC 11.0, hemoglobin/hematocrit 13.7/41, platelet 364. Granulocytes 72% segs. Sodium 146, potassium 4.7, chloride 105, CO2 of 30, anion gap 15, BUN 13, creatinine 1.0, GFR greater than 60, glucose 99, calcium 9.5. LFTs are normal. The patient's ultrasound was done. The patient's venous Doppler was done of the right upper extremity which shows above the elbow superficial thrombophlebitis of the left basilic vein branch with edema and acute superficial thrombophlebitis of right basilic vein. The patient was seen in the emergency room by the physician media assistant. The patient was treated with vancomycin and Zosyn in the emergency room. The patient underwent a CAT scan of the of the right upper extremity without contrast because of the PATIENT HAVING ALLERGY TO IODINE.. The patient's PT/PTT chest x-ray, EKG pending. IMPRESSION AND PLAN 1. Right antecubital area cellulitis versus questionable abscess with fatty infiltration in the right elbow area and associated acute right basilic vein superficial thrombophlebitis. 2. Right antecubital area cellulitis versus abscess with induration and pain and swelling, status post p.o. antibiotic treatment with failure and poor response. 3. History of hypertension. 4. Granulocytosis. 5. Chronic obstructive pulmonary disease. 6. History of transient ischemic attack, history of hyperlipidemia, hypertriglyceridemia. 7. History of right breast carcinoma. PLAN: At this time, the patient has been ordered a lactic acid, C-reactive protein, hemoglobin A1c, serial labs ordered for the morning, lipid panel ordered, ESR, PT/PTT ordered, CBC ordered, blood cultures ordered. Consultation Surgery and Infectious Disease. Procalcitonin level ordered. The patient is started on Bactroban cream to the affected area of the right antecubital area 3 times a day, Brovana 15 mcg every 12 hours, DuoNeb nebulizer every 6 hours, Ecotrin 81 mg daily, Lipitor 40 mg daily, Lovenox 40 mg and 50 mg subcu daily, Plavix 75 mg daily, Protonix 40 mg daily, vancomycin 1 g IV daily, Zosyn 3.375 g IV every 6 hours. Chest x-ray PA and lateral ordered. CT of the right upper extremity, right elbow area ordered. Incentive spirometry ordered. EKG ordered. The patient had been ordered out of bed, AMINA stockings, SCDs to the lower extremity, occupational therapy, physical therapy ordered. Urinalysis ordered. The patient has been explained about the details of her medical condition, need for further admission and evaluation, need for further diagnostic testing, need for evaluation by Surgery, Infectious Disease discussed and explained to the patient at length and all questions concerned answered. All the details discussed with the patient in the emergency room. The patient was seen with the patient's son at bedside in stretcher #[id number]. The patient was advised and explained about all the details. The patient is agreeable to stay in the hospital for further treatment management etc. Dictated and electronically signed, not read. Gregg Amezcua MD
[2018-05-25 05:24] LABS: PH,URINE 5.5 (4.7-8.0); URINE BILIRUBIN NEGATIVE (NEGATIVE); URINE BLOOD TRACE-INTACT (NEGATIVE); URINE GLUCOSE (UA) NEGATIVE (NEGATIVE); URINE LEUKOCYTE ESTERASE TRACE Leu/uL (NEGATIVE); URINE PROTEIN TRACE mg/dL (<30 mg/dL); URINE UROBILINOGEN 0.2 E.U./dL (<1 E.U./dL)
[2018-05-25] MEDS: Pantoprazole 40 mg EC Tab PO SCH (05:26)
[2018-05-25 05:33] LABS: URINE APPEARANCE SL CLOUDY (CLEAR); URINE COLOR YELLOW (YELLOW)
[2018-05-25 05:35] LABS: URINE BACTERIA MANY (NEG); URINE RBC 0 - 2 /hpf (0-2)
[2018-05-25 06:20] LABS: BASO # 0.02 K/mm3 (0.0-2.0); BASO % 0.2 % (0.0-3.0); EOS # 0.6 (0.0-0.7); EOS % 7.3 % (1.5-5.0); GRAN # 5.22 (1.4-6.5); GRAN % 64.8 % (50.0-68.0); LYMPH # 1.8 (1.2-3.4); LYMPH % 22.1 % (22.0-35.0); MEAN CELL VOLUME 82.9 fl (80.0-105.0); MEAN CORPUSCULAR HGB CONC 32.6 g/dl (31.0-37.0); MEAN PLATELET VOLUME 8.8 fl (7.0-11.0); MONO # 0.5 (0.1-0.6); MONO % 5.6 % (1.0-6.0); RBC 4.15 10^6/uL (3.5-6.1); RED CELL DISTRIBUTION WIDTH 15.3 % (11.5-14.5); WHITE BLOOD COUNT 8.1 10^3/ul (4.5-11.0)
[2018-05-25 06:26] LABS: HEMOGLOBIN 11.2 g/dL (12.0-16.0)
[2018-05-25 06:44] LABS: LDL CHOLESTEROL 82 mg/dL (0-129)
[2018-05-25 06:59] LABS: ALB/GLOB RATIO 0.9 (1.1-1.8); ALBUMIN 3.1 g/dL (3.0-4.8); ALT/SGPT 22 U/L (7-56); AST/SGOT 16 U/L (14-36); BILIRUBIN,DIRECT 0.2 mg/dL (0.0-0.4); BLOOD UREA NITROGEN 12 mg/dL (7-21); CALCIUM 8.6 mg/dL (8.4-10.5); GFR AFRICAN-AMERICAN > 60; GFR NON-AFRICAN AMERICAN > 60; HDL CHOLESTEROL 39 mg/dL (29-60)
[2018-05-25] MEDS: Arformoterol 15 mcg/2 ml Inh Sol IH SCH ×2 (07:30→20:10)
--- NOTE | 2018-05-25 08:21 | CP.PCM.PN ---
<Man Rivas - Last Filed: 05/25/18 08:17> Subjective - Date & Time of Evaluation Date of Evaluation: 05/25/18 Time of Evaluation: 06:00 - Subjective Subjective: Patient seen and evaluated bedside. No acute issues overnight. Patient denies any pain from swelling site on her arm. Patient denies chest pain, SOB, fever, chills, or any other complaints at this time. Objective - Vital Signs/Intake and Output Vital Signs (last 24 hours): Temp Pulse Resp BP Pulse Ox 97.6 F 61 19 131/73 95 05/25/18 07:36 05/25/18 07:36 05/25/18 07:36 05/25/18 07:36 05/25/18 07:36 Intake and Output: 05/25/18 05/25/18 06:59 18:59 Intake Total 360 Balance 360 - Medications Medications: Current Medications Albuterol/Ipratropium (Duoneb 3 Mg/0.5 Mg (3 Ml) Ud) 3 ml IH Q6H [facility] Stop: 06/18/18 14:31 Last Admin: 05/25/18 07:30 Dose: 3 ml Arformoterol Tartrate (Brovana) 15 mcg IH [id number] [facility] Last Admin: 05/25/18 07:30 Dose: 15 mcg Aspirin (Ecotrin) 81 mg PO DAILY [facility] Atorvastatin Calcium (Lipitor) 40 mg PO DAILY [facility] Clopidogrel Bisulfate (Plavix) 75 mg PO DAILY [facility] Enoxaparin Sodium (Lovenox) 40 mg SC DAILY [facility] PRN Reason: Protocol Linezolid (Zyvox 600mg/300ml D5w) 600 mg in 300 mls @ 200 mls/hr IVPB Q12 [facility] PRN Reason: Protocol Stop: 05/31/18 23:31 Last Admin: 05/25/18 00:09 Dose: 200 mls/hr Mupirocin (Bactroban Ointment) 0 gm TOP TID [facility] Last Admin: 05/24/18 21:33 Dose: 1 applic Pantoprazole Sodium (Protonix Ec Tab) 40 mg PO 0600 [facility] Last Admin: 05/25/18 05:26 Dose: 40 mg - Labs Labs: 05/25/18 05:45 05/25/18 05:45 PT 12.6 SECONDS (9.4-12.5) H 05/24/18 21:45 INR 1.10 (0.93-1.08) H 05/24/18 21:45 APTT 37.4 Seconds (25.1-36.5) H 05/24/18 21:45 - Constitutional Appears: Well, Non-toxic, No Acute Distress - Head Exam Head Exam: ATRAUMATIC, NORMAL INSPECTION, NORMOCEPHALIC - Eye Exam Eye Exam: EOMI, Normal appearance - ENT Exam ENT Exam: Mucous Membranes Moist - Respiratory Exam Respiratory Exam: Clear to Ausculation Bilateral, NORMAL BREATHING PATTERN - Cardiovascular Exam Cardiovascular Exam: REGULAR RHYTHM - GI/Abdominal Exam GI & Abdominal Exam: Soft - Extremities Exam Extremities Exam: absent: Pedal Edema, Tenderness - Neurological Exam Neurological Exam: Alert, Awake, Oriented x3 - Skin Skin Exam: Erythema, Warm Additional comments: area approximately 7cm in diameter of erythema in the antecubital fossa with induration, swelling, with central area of raised swelling with no palpable fluctuance or expressible drainage seen, improved from yesterday Assessment and Plan - Assessment and Plan (Free Text) Assessment: 82F with thrombophlebitis of the right basilic vein and overlying cellulitis Plan: -No surgical indication for cellulitis -Continue to monitor for any development or signs of abscess -Apply warm compresses to the area -Continue DVT ppx and blood thinner -antibiotics as per ID -PRN pain medication -discussed with Dr. Queen, -further recommendations per Dr. Bret Rivas PGY-2 <Tae Queen - Last Filed: 05/26/18 10:11> Objective - Vital Signs/Intake and Output Vital Signs (last 24 hours): Temp Pulse Resp BP Pulse Ox 97.4 F L 68 18 135/67 96 05/26/18 07:44 05/26/18 07:44 05/26/18 07:44 05/26/18 07:44 05/26/18 07:44 Intake and Output: 05/26/18 05/26/18 06:59 18:59 Intake Total 420 Balance 420 - Medications Medications: Current Medications Albuterol/Ipratropium (Duoneb 3 Mg/0.5 Mg (3 Ml) Ud) 3 ml IH Q6H [facility] Stop: 06/18/18 14:31 Last Admin: 05/26/18 07:32 Dose: 3 ml Arformoterol Tartrate (Brovana) 15 mcg IH [id number] [facility] Last Admin: 05/26/18 07:27 Dose: 15 mcg Aspirin (Ecotrin) 81 mg PO DAILY [facility] Last Admin: 05/25/18 10:07 Dose: 81 mg Atorvastatin Calcium (Lipitor) 40 mg PO DAILY [facility] Last Admin: 05/25/18 10:07 Dose: 40 mg Clopidogrel Bisulfate (Plavix) 75 mg PO DAILY [facility] Last Admin: 05/25/18 10:07 Dose: 75 mg Docusate Sodium (Colace) 100 mg PO TID [facility] Last Admin: 05/25/18 18:10 Dose: 100 mg Enoxaparin Sodium (Lovenox) 40 mg SC DAILY [facility] PRN Reason: Protocol Last Admin: 05/25/18 10:07 Dose: 40 mg Linezolid (Zyvox 600mg/300ml D5w) 600 mg in 300 mls @ 200 mls/hr IVPB Q12 [facility] PRN Reason: Protocol Stop: 05/31/18 23:31 Last Admin: 05/25/18 21:10 Dose: 200 mls/hr Morphine Sulfate (Morphine) 1 mg IVP Q4H PRN PRN Reason: Pain, moderate (4-7) Last Admin: 05/25/18 18:11 Dose: 1 mg Mupirocin (Bactroban Ointment) 0 gm TOP TID [facility] Last Admin: 05/25/18 17:16 Dose: 1 applic Mfaby-2-Smhh Ethyl Esters (Lovaza) 2 gm PO BID [facility] Last Admin: 05/25/18 17:16 Dose: Not Given Pantoprazole Sodium (Protonix Ec Tab) 40 mg PO 0600 [facility] Last Admin: 05/26/18 05:23 Dose: 40 mg Sennosides (Senokot Tab) 17.2 mg PO HS [facility] Last Admin: 05/25/18 21:18 Dose: Not Given - Labs Labs: 05/26/18 05:30 05/26/18 05:30 PT 12.6 SECONDS (9.4-12.5) H 05/24/18 21:45 INR 1.10 (0.93-1.08) H 05/24/18 21:45 APTT 37.4 Seconds (25.1-36.5) H 05/24/18 21:45 Assessment and Plan - Assessment and Plan (Free Text) Assessment: Very significant improvement over night without abscess noted Eliquis on hold for rebecca Poss TRCU for continued Rx-Observation planned-Pt aware Nico Queen MD FACS
--- NOTE | 2018-05-25 08:41 | RAD ---
HISTORY: COMPARISON: 06/18/2017. TECHNIQUE: Chest PA and lateral FINDINGS: LINES AND TUBES: None. LUNG AND PLEURA: The lungs are well inflated and clear. No pleural effusion or pneumothorax. HEART AND MEDIASTINUM: The heart is not enlarged. The hilar and mediastinal contours are within normal limits. SKELETAL STRUCTURES: The bony structures are within normal limits for the patient's age. VISUALIZED UPPER ABDOMEN: Normal. OTHER FINDINGS: None. IMPRESSION: No active pulmonary disease.
[2018-05-25] MEDS ORDERED: Vancomycin 1gm in NS 250ml 1 GM/250 ML BAG IVPB SCH (10:00)
[2018-05-25] MEDS: Enoxaparin 40 mg Syringe SC SCH (10:07)
[2018-05-25] MEDS: Mupirocin 2% Ointment 15 GM TUBE TOP SCH ×3 (10:07→17:16)
--- NOTE | 2018-05-25 10:09 | CT ---
PROCEDURE: CT scan of the elbow joint without intravenous contrast INDICATION: TECHNIQUE: Multiple axial images were obtained with slice thickness of 2.5 mm. Coronal and sagittal reformatted images were obtained. Iterative reconstruction was used. Radiation dose: Total exam DLP = 198.70 mGy-cm. This CT exam was performed using one or more of the following dose reduction techniques: Automated exposure control, adjustment of the mA and/or kV according to patient size, and/or use of iterative reconstruction technique. COMPARISON: Plain radiographs from 05/19/2018. FINDINGS: Bone alignment and mineralization are normal. There is no acute displaced fracture or bone destruction. No evidence of bony erosion. There is soft tissue swelling and subcutaneous fat stranding and minimal subcutaneous fluid in the antecubital fossa without evidence for drainable fluid collection. IMPRESSION: Findings are most compatible with cellulitis in the antecubital fossa. No evidence for drainable fluid collection. No evidence for osteomyelitis. A preliminary report was provided by [facility].
[2018-05-25] MEDS: Omega-3-Acid Ethyl Esters 1 GM Cap PO SCH ×2 (11:04→17:16)
--- NOTE | 2018-05-25 11:05 | CP.PCM.CON ---
History of Present Illness - History of Present Illness History of Present Illness: 82 year old female with PMH of COPD, HTN, history of TIA came in [place] [facility] [place] of pain and swelling at the antecubital area on the right arm. She states that she went to a hospital in [place] about 3 weeks ago and for COPD exacerbation and an IV line was placed in the right antecubital fossa and had the IV line for 3-4 days. A day after it was removed, she noted swelling of the area and was told to put ice over it. The swelling subsided a little but the pain continued and gradually became worse and became more swollen, red and painful. She went to the ED a week ago and was prescribed Clindamycin for presumed cellulitis and she was able to take 5 days worth, without relief of symptoms. She denies fever or chills, no insect bites, no animal contacts, no soaking of right arm in water, no headache or dizziness, no chest pain, no SOB, cough or rhinorrhea, no abdominal pain, no diarrhea, no dysuria. Ultrasound of the area shows probable thrombophlebitis. She was started on warm compress last night and thick fluid started oozing out of the area. Infectious diseases consult is requested to further evaluate and manage. Review of Systems - Review of Systems All systems: reviewed and no additional remarkable complaints except (as per HPI ) Past Patient History - Infectious Disease Hx of Infectious Diseases: None - Tetanus Immunizations Tetanus Immunization: Unknown - Past Medical History & Family History Past Medical History?: Yes Past Family History: Reviewed and not pertinent - Past Social History Smoking Status: Never Smoked - CARDIAC Hx Cardiac Disorders: Yes Hx Hypertension: Yes - PULMONARY Hx Respiratory Disorders: Yes Hx Asthma: Yes Hx Chronic Obstructive Pulmonary Disease (COPD): Yes - NEUROLOGICAL Hx Neurological Disorder: Yes Hx Transient Ischemic Attacks (TIA): Yes - HEENT Hx HEENT Problems: Yes Hx Deafness: Yes (hearing aid rt ear) - RENAL Hx Chronic Kidney Disease: No - ENDOCRINE/METABOLIC Hx Endocrine Disorders: No - HEMATOLOGICAL/ONCOLOGICAL Hx Blood Disorders: No Hx Cancer: Yes (right breast CA w/ lumpectomy) - INTEGUMENTARY Hx Dermatological Problems: No - MUSCULOSKELETAL/RHEUMATOLOGICAL Hx Musculoskeletal Disorders: No Hx Falls: No - GASTROINTESTINAL Hx Gastrointestinal Disorders: No - GENITOURINARY/GYNECOLOGICAL Hx Genitourinary Disorders: No - PSYCHIATRIC Hx Psychophysiologic Disorder: No - SURGICAL HISTORY Hx Surgeries: Yes Hx Hysterectomy: Yes Other/Comment: rt breast ca& lumpectomy - ANESTHESIA Hx Anesthesia: Yes Hx Anesthesia Reactions: No Meds Allergies/Adverse Reactions: Allergies Allergy/AdvReac Type Severity Reaction Status Date / Time iodine Allergy RASH Verified 05/19/18 15:11 Iodine and Iodide Containing Allergy RASH Verified 05/19/18 15:11 Produc - Medications Medications: Current Medications Albuterol/Ipratropium (Duoneb 3 Mg/0.5 Mg (3 Ml) Ud) 3 ml IH Q6H [facility] Stop: 06/18/18 14:31 Arformoterol Tartrate (Brovana) 15 mcg IH [id number] [facility] Aspirin (Ecotrin) 81 mg PO DAILY [facility] Atorvastatin Calcium (Lipitor) 40 mg PO DAILY [facility] Clopidogrel Bisulfate (Plavix) 75 mg PO DAILY [facility] Enoxaparin Sodium (Lovenox) 40 mg SC DAILY [facility] PRN Reason: Protocol Vancomycin HCl (Vancomycin 1gm) 1 gm in 250 mls @ 167 mls/hr IVPB DAILY [facility] PRN Reason: Protocol Piperacillin Sod/Tazobactam Sod (Zosyn 3.375 In Ns 100ml) 100 mls @ 200 mls/hr IVPB Q6 [facility] PRN Reason: Protocol Stop: 05/25/18 06:29 Last Admin: 05/24/18 23:15 Dose: 200 mls/hr Mupirocin (Bactroban Ointment) 0 gm TOP TID [facility] Last Admin: 05/24/18 21:33 Dose: 1 applic Pantoprazole Sodium (Protonix Ec Tab) 40 mg PO 0600 [facility] Physical Exam - Constitutional Appears: Non-toxic - Head Exam Head Exam: NORMAL INSPECTION - ENT Exam ENT Exam: Mucous Membranes Moist - Neck Exam Neck exam: Negative for: Lymphadenopathy, Meningismus - Respiratory Exam Respiratory Exam: absent: Rales, Rhonchi - Cardiovascular Exam Cardiovascular Exam: +S1, +S2 - GI/Abdominal Exam GI & Abdominal Exam: Soft. absent: Tenderness - Extremities Exam Additional comments: right arm antecubital area with area of induration, erythema and tenderness, no discharge currently Results - Vital Signs Recent Vital Signs: Last Vital Signs Temp 98.2 F 05/24/18 22:41 Pulse 77 05/24/18 22:41 Resp 18 05/24/18 22:41 BP 145/75 05/24/18 22:41 Pulse Ox 96 05/24/18 20:11 - Labs Result Diagrams: 05/25/18 05:45 05/25/18 05:45 Labs: Laboratory Results - last 24 hr 05/24/18 05/24/18 21:45 21:45 PT 12.6 H INR 1.10 H APTT 37.4 H Lactic Acid 0.9 Assessment & Plan - Assessment and Plan (Free Text) Plan: Assessment Probable superimposed skin and skin structure infection with basilic vein thrombophlebitis over the right arm anetecubital area COPD HTN history of TIA Plan Started patient on Zyvox and will follow up blood cx; follow up CT arm results continue warm compress and if there is discharge, it should be sent for cultures and gram stain will monitor clinically
--- NOTE | 2018-05-25 16:43 | CARD ---
APPROVED REPORT Date of service: 05/25/2018 EKG Measurement Heart [id number] <Conclusion> Normal sinus rhythm Normal ECG
[2018-05-25] MEDS ORDERED: Morphine 2 mg/ml ISec IVP PRN (17:31)
[2018-05-26] MEDS: Albuterol-Ipratrop 3 mg / 0.5 (3 ml) UD IH SCH ×4 (02:42→19:48)
[2018-05-26] MEDS: Pantoprazole 40 mg EC Tab PO SCH (05:23)
[2018-05-26 06:26] LABS: BASO # 0.03 K/mm3 (0.0-2.0); BASO % 0.3 % (0.0-3.0); EOS # 0.6 (0.0-0.7); EOS % 6.4 % (1.5-5.0); GRAN # 6.37 (1.4-6.5); GRAN % 70.6 % (50.0-68.0); LYMPH # 1.5 (1.2-3.4); LYMPH % 16.7 % (22.0-35.0); MEAN CELL VOLUME 83.2 fl (80.0-105.0); MEAN CORPUSCULAR HEMOGLOBIN 27.3 pg (25.0-35.0); MEAN CORPUSCULAR HGB CONC 32.8 g/dl (31.0-37.0); MEAN PLATELET VOLUME 8.9 fl (7.0-11.0); MONO # 0.5 (0.1-0.6); RBC 4.4 10^6/uL (3.5-6.1); RED CELL DISTRIBUTION WIDTH 15.1 % (11.5-14.5)
[2018-05-26 07:07] LABS: ALB/GLOB RATIO 0.9 (1.1-1.8); ALBUMIN 3.3 g/dL (3.0-4.8); ALT/SGPT 26 U/L (7-56); AST/SGOT 20 U/L (14-36); BILIRUBIN,DIRECT 0.2 mg/dL (0.0-0.4); BLOOD UREA NITROGEN 7 mg/dL (7-21); CALCIUM 8.8 mg/dL (8.4-10.5); GFR AFRICAN-AMERICAN > 60; GFR NON-AFRICAN AMERICAN > 60
[2018-05-26] MEDS: Arformoterol 15 mcg/2 ml Inh Sol IH SCH ×2 (07:27→19:48)
--- NOTE | 2018-05-26 08:15 | PN ---
DATE: 05/25/2018 SUBJECTIVE: The patient is seen in room 367, bed 2. The patient is seen lying in the bed. The patient states that her right antecubital area wound is shrinking in size, and the swelling and redness has reduced since yesterday. The patient has at present been seen by Dr. Queen at the bedside. The patient's overnight nurse's notes were reviewed. The patient had intermittent complaints of right antecubital area, right forearm, right arm pain. REVIEW OF SYSTEMS: Thirteen-system review was done, pertinent positive and negative dictated above. PHYSICAL EXAMINATION: VITAL SIGNS: T-max 98.2, pulse 61 to 71; blood pressure 141/74, 131/73; respiration 19 to 20, O2 sat 95%. HEENT: Head normocephalic, atraumatic. HEENT examination shows pinkish conjunctivae. Anicteric sclerae. No oropharyngeal lesion. No neck rigidity. CHEST: Kyphosis. LUNGS: No wheezing, but very occasional rhonchi, much less than yesterday. No carotid bruit. CARDIOVASCULAR: Shows S1 and S2, regular rhythm. ABDOMEN: Soft. Positive bowel sound. GENITALIA: Female. RECTAL: Examination deferred. EXTREMITIES: Lower extremity showed no pitting edema, no calf numbness, no Homans' sign. Upper extremity, right upper extremity shows decreasing erythema, decreasing swelling and decreasing fluctuation, and decreasing swelling and erythema of the right antecubital area wound and decreasing redness and swelling and pain of the distal right arm and proximal right forearm. The patient's range of motion of the right upper extremity has improved as compared to yesterday. The patient is able to do right elbow flexion with improved range of motion of the right elbow flexion. Motor strength is 5/5 in upper and lower extremities. NEUROLOGIC: The patient is alert, awake and oriented x3. Cranial nerves II through XII grossly intact. Gait examination is not tested. DIAGNOSTICS: From 05/25/2018, WBC 8.1, hemoglobin and hematocrit are 11.2 and 34.4, platelet 329. ESR is 100. Sodium 139, potassium 4.3, chloride 103, CO2 of 28, anion gap 12, BUN 12, creatinine 0.9, GFR greater than 60, glucose 101, hemoglobin A1c is 6.3. Lactic acid is 0.9. Procalcitonin level is 0.05. Calcium 8.6, magnesium 2. LFTs are normal. C-reactive protein is greater than 68. High sensitivity C-reactive protein is greater than 15. Triglyceride 380, cholesterol 220. Urinalysis, trace protein, trace blood, positive nitrite, trace leukocyte esterase, many bacteria. Right arm cultures, results pending. Blood cultures, no growth. The patient's chest x-ray, upper extremity right upper extremity CAT scan results reviewed and explained to the patient. Venous Doppler of the right upper extremity noted. EKG done reviewed. The patient is seen by Surgery. The patient is awaiting Infectious Disease evaluation. IMPRESSION: 1. Right forearm, right antecubital area cellulitis versus questionable early abscess with skin and skin structure infection. 2. Acute right basilic vein superficial thrombophlebitis. 3. History of hypertension, presently normotension. 4. Normocytic anemia with granulocytosis. 5. Elevated erythrocyte sedimentation rate of 100. 6. Elevated high sensitivity C-reactive protein of greater than 15 and elevated C-reactive protein of greater than 68. 7. Prediabetes with hemoglobin A1c of 6.3. 8. Hypertriglyceridemia and hypercholesterolemia. 9. Questionable urinary tract infection with bacteriuria, pyuria, microscopic hematuria, proteinuria. 10. History of chronic obstructive pulmonary disease and former smoker. 11. Right antecubital area soft tissue swelling and subcutaneous fat stranding and subcutaneous fluid in the right antecubital area. 12. History of right breast carcinoma status post lumpectomy, status post tamoxifen treatment. 13. History of transient ischemic attack, history of hysterectomy. 14. History of right ear hearing deficit, history of osteoporosis, history of diverticulosis, history of transient cerebral ischemia, history of gastroenteritis. 1. Right antecubital area cellulitis versus questionable abscess with fatty infiltration in the right elbow area and associated acute right basilic vein superficial thrombophlebitis. 2. Right antecubital area cellulitis versus abscess with induration and pain and swelling, status post p.o. antibiotic treatment with failure and poor response. 3. History of hypertension. 4. Granulocytosis. 5. Chronic obstructive pulmonary disease. 6. History of transient ischemic attack, history of hyperlipidemia, hypertriglyceridemia. 7. History of right breast carcinoma. PLAN: At this time; 1. The patient is to be continued in the inpatient treatment. Repeat labs ordered. Consultation, Infectious Disease and Surgery. 2. TCU evaluation ordered. CURRENT TREATMENT: Bactroban cream to the right antecubital area three times a day, Brovana nebulizer treatment 15 mcg every 12, Colace 100 mg three times a day, DuoNeb nebulizer every 6 hours, Ecotrin 81 mg daily, Lipitor 40 mg daily, Lovaza 2 g twice a day, Lovenox 40 mg subcu daily, morphine 1 mg IV every 4 p.r.n. for pain, Plavix 75 mg daily, Protonix 40 mg daily, Senokot 17.2 mg at bedtime, Tylenol 650 mg every 6 hours p.r.n. The patient received vancomycin and Zosyn doses still this morning. Patient is now switched over to Zyvox 600 mg IV every 12 hours. The patient is on incentive spirometer carbohydrate diet, out of bed. The patient has been ordered SCD, AMINA stockings. Occupational therapy and physical therapy ordered. Head of the bed at 30 degrees, elevate edematous area on 2 pillows. The patient is updated about her medical condition by me and Surgery. All questions concerned answered to the patient, which she acknowledged her understanding. The patient is yet to be seen by the physical therapist. The patient's case referred to Senior Chemical Engineer for discharge planning. Dictated and electronically signed, not read. Gregg Amezcua MD MTDD
--- NOTE | 2018-05-26 08:38 | CP.PCM.PN ---
Subjective - Date & Time of Evaluation Date of Evaluation: 05/26/18 Time of Evaluation: 06:00 Objective - Vital Signs/Intake and Output Vital Signs (last 24 hours): Temp Pulse Resp BP Pulse Ox 97.4 F L 68 18 135/67 96 05/26/18 07:44 05/26/18 07:44 05/26/18 07:44 05/26/18 07:44 05/26/18 07:44 Intake and Output: 05/26/18 05/26/18 06:59 18:59 Intake Total 420 Balance 420 - Medications Medications: Current Medications Albuterol/Ipratropium (Duoneb 3 Mg/0.5 Mg (3 Ml) Ud) 3 ml IH Q6H [facility] Stop: 06/18/18 14:31 Last Admin: 05/26/18 07:32 Dose: 3 ml Arformoterol Tartrate (Brovana) 15 mcg IH [id number] [facility] Last Admin: 05/26/18 07:27 Dose: 15 mcg Aspirin (Ecotrin) 81 mg PO DAILY [facility] Last Admin: 05/25/18 10:07 Dose: 81 mg Atorvastatin Calcium (Lipitor) 40 mg PO DAILY [facility] Last Admin: 05/25/18 10:07 Dose: 40 mg Clopidogrel Bisulfate (Plavix) 75 mg PO DAILY [facility] Last Admin: 05/25/18 10:07 Dose: 75 mg Docusate Sodium (Colace) 100 mg PO TID [facility] Last Admin: 05/25/18 18:10 Dose: 100 mg Enoxaparin Sodium (Lovenox) 40 mg SC DAILY [facility] PRN Reason: Protocol Last Admin: 05/25/18 10:07 Dose: 40 mg Linezolid (Zyvox 600mg/300ml D5w) 600 mg in 300 mls @ 200 mls/hr IVPB Q12 [facility] PRN Reason: Protocol Stop: 05/31/18 23:31 Last Admin: 05/25/18 21:10 Dose: 200 mls/hr Morphine Sulfate (Morphine) 1 mg IVP Q4H [facility]N PRN Reason: Pain, moderate (4-7) Last Admin: 05/25/18 18:11 Dose: 1 mg Mupirocin (Bactroban Ointment) 0 gm TOP TID [facility] Last Admin: 05/25/18 17:16 Dose: 1 applic [id number]-[id number] Ethyl Esters (Lovaza) 2 gm PO BID [facility] Last Admin: 05/25/18 17:16 Dose: Not Given Pantoprazole Sodium (Protonix Ec Tab) 40 mg PO 0600 [facility] Last Admin: 05/26/18 05:23 Dose: 40 mg Sennosides (Senokot Tab) 17.2 mg PO HS [facility] Last Admin: 05/25/18 21:18 Dose: Not Given - Labs Labs: 05/26/18 05:30 05/26/18 05:30 PT 12.6 SECONDS (9.4-12.5) H 05/24/18 21:45 INR 1.10 (0.93-1.08) H 05/24/18 21:45 APTT 37.4 Seconds (25.1-36.5) H 05/24/18 21:45 - Constitutional Appears: Well, Non-toxic, No Acute Distress - Head Exam Head Exam: ATRAUMATIC, NORMAL INSPECTION, NORMOCEPHALIC - Eye Exam Eye Exam: EOMI, Normal appearance - ENT Exam ENT Exam: Mucous Membranes Moist - Respiratory Exam Respiratory Exam: Clear to Ausculation Bilateral, NORMAL BREATHING PATTERN - Cardiovascular Exam Cardiovascular Exam: REGULAR RHYTHM - GI/Abdominal Exam GI & Abdominal Exam: Soft. absent: Tenderness - Extremities Exam Extremities Exam: absent: Pedal Edema - Neurological Exam Neurological Exam: Alert, Awake, Oriented x3 - Skin Skin Exam: Warm Additional comments: area approximately 7cm in diameter of erythema in the antecubital fossa with induration, swelling, with central area of raised swelling with no palpable fluctuance or expressible drainage seen, improved from yesterday Assessment and Plan - Assessment and Plan (Free Text) Assessment: 82F with thrombophlebitis of the right basilic vein and overlying cellulitis Plan: -No surgical indication for cellulitis -Continue to monitor for any development or signs of abscess -Apply warm compresses to the area -Continue DVT ppx and blood thinner -antibiotics as per ID -PRN pain medication -discussed with Dr. Queen, -further recommendations per Dr. Bret Rivas PGY-2
[2018-05-26] MEDS: Linezolid 600 mg in D5W 300 ml 600 MG/300 ML BAG IVPB SCH ×2 (10:44→21:11)
[2018-05-26] MEDS: Enoxaparin 40 mg Syringe SC SCH (10:45)
[2018-05-26] MEDS: Omega-3-Acid Ethyl Esters 1 GM Cap PO SCH ×2 (10:45→17:38)
[2018-05-26] MEDS: Mupirocin 2% Ointment 15 GM TUBE TOP SCH ×3 (10:46→17:37)
--- NOTE | 2018-05-26 11:03 | CP.PCM.PN ---
Subjective - Date & Time of Evaluation Date of Evaluation: 05/26/18 Time of Evaluation: 09:10 - Subjective Subjective: Right arm is feeling a little better but still with some induration and swelling , no fevers overnight. Objective - Vital Signs/Intake and Output Vital Signs (last 24 hours): Temp Pulse Resp BP Pulse Ox 97.4 F L 68 18 135/67 96 05/26/18 07:44 05/26/18 07:44 05/26/18 07:44 05/26/18 07:44 05/26/18 07:44 Intake and Output: 05/26/18 05/26/18 06:59 18:59 Intake Total 420 Balance 420 - Medications Medications: Current Medications Albuterol/Ipratropium (Duoneb 3 Mg/0.5 Mg (3 Ml) Ud) 3 ml IH Q6H [facility] Stop: 06/18/18 14:31 Last Admin: 05/26/18 07:32 Dose: 3 ml Arformoterol Tartrate (Brovana) 15 mcg IH [id number] [facility] Last Admin: 05/26/18 07:27 Dose: 15 mcg Aspirin (Ecotrin) 81 mg PO DAILY [facility] Last Admin: 05/25/18 10:07 Dose: 81 mg Atorvastatin Calcium (Lipitor) 40 mg PO DAILY [facility] Last Admin: 05/25/18 10:07 Dose: 40 mg Clopidogrel Bisulfate (Plavix) 75 mg PO DAILY [facility] Last Admin: 05/25/18 10:07 Dose: 75 mg Docusate Sodium (Colace) 100 mg PO TID [facility] Last Admin: 05/25/18 18:10 Dose: 100 mg Enoxaparin Sodium (Lovenox) 40 mg SC DAILY [facility] PRN Reason: Protocol Last Admin: 05/25/18 10:07 Dose: 40 mg Linezolid (Zyvox 600mg/300ml D5w) 600 mg in 300 mls @ 200 mls/hr IVPB Q12 [facility] PRN Reason: Protocol Stop: 05/31/18 23:31 Last Admin: 05/25/18 21:10 Dose: 200 mls/hr Morphine Sulfate (Morphine) 1 mg IVP Q4H PRN PRN Reason: Pain, moderate (4-7) Last Admin: 05/25/18 18:11 Dose: 1 mg Mupirocin (Bactroban Ointment) 0 gm TOP TID [facility] Last Admin: 05/25/18 17:16 Dose: 1 applic [id number] Ethyl Esters (Lovaza) 2 gm PO BID [facility] Last Admin: 05/25/18 17:16 Dose: Not Given Pantoprazole Sodium (Protonix Ec Tab) 40 mg PO 0600 [facility] Last Admin: 05/26/18 05:23 Dose: 40 mg Sennosides (Senokot Tab) 17.2 mg PO HS [facility] Last Admin: 05/25/18 21:18 Dose: Not Given - Labs Labs: 05/26/18 05:30 05/26/18 05:30 PT 12.6 SECONDS (9.4-12.5) H 05/24/18 21:45 INR 1.10 (0.93-1.08) H 05/24/18 21:45 APTT 37.4 Seconds (25.1-36.5) H 05/24/18 21:45 - Constitutional Appears: Chronically Ill - Head Exam Head Exam: NORMAL INSPECTION - Neck Exam Neck Exam: absent: Meningismus - Respiratory Exam Respiratory Exam: Decreased Breath Sounds - Cardiovascular Exam Cardiovascular Exam: +S1, +S2 - GI/Abdominal Exam GI & Abdominal Exam: Soft. absent: Tenderness Assessment and Plan - Assessment and Plan (Free Text) Plan: Assessment Probable superimposed skin and skin structure infection with basilic vein thrombophlebitis over the right arm anetecubital area COPD HTN history of TIA Plan continue Zyvox day 2; blood cx are negative; reviewed CT arm results continue warm compress and if there is discharge, it should be sent for cultures and gram stain will continue to monitor clinically
--- NOTE | 2018-05-26 12:00 | CP.PCM.PN ---
<Bindu Hagan - Last Filed: 05/26/18 11:56> Subjective - Date & Time of Evaluation Date of Evaluation: 05/26/18 Time of Evaluation: 11:56 - Subjective Subjective: Bindu Hagan, PGY2, Medicine Progress Note for Dr Amezcua: Patient seen and examined at bedside. No acute events overnight. Patient states that her right arm swelling is improved. Patient refused medications, advised patient to adhere to medication regimen, states that she understands and will try to take them. Denies fevers, chills, nausea, vomiting, abdominal pain, urinary symptoms. Objective - Vital Signs/Intake and Output Vital Signs (last 24 hours): Temp Pulse Resp BP Pulse Ox 97.4 F L 68 18 135/67 96 05/26/18 07:44 05/26/18 07:44 05/26/18 07:44 05/26/18 07:44 05/26/18 07:44 Intake and Output: 05/26/18 05/26/18 06:59 18:59 Intake Total 420 Balance 420 - Medications Medications: Current Medications Albuterol/Ipratropium (Duoneb 3 Mg/0.5 Mg (3 Ml) Ud) 3 ml IH Q6H [facility] Stop: 06/18/18 14:31 Last Admin: 05/26/18 07:32 Dose: 3 ml Arformoterol Tartrate (Brovana) 15 mcg IH [id number] [facility] Last Admin: 05/26/18 07:27 Dose: 15 mcg Aspirin (Ecotrin) 81 mg PO DAILY [facility] Last Admin: 05/26/18 10:45 Dose: 81 mg Atorvastatin Calcium (Lipitor) 40 mg PO DAILY [facility] Last Admin: 05/26/18 10:45 Dose: 40 mg Clopidogrel Bisulfate (Plavix) 75 mg PO DAILY [facility] Last Admin: 05/26/18 10:45 Dose: 75 mg Docusate Sodium (Colace) 100 mg PO TID [facility] Last Admin: 05/26/18 10:45 Dose: 100 mg Enoxaparin Sodium (Lovenox) 40 mg SC DAILY [facility] PRN Reason: Protocol Last Admin: 05/26/18 10:45 Dose: Not Given Linezolid (Zyvox 600mg/300ml D5w) 600 mg in 300 mls @ 200 mls/hr IVPB Q12 [facility] PRN Reason: Protocol Stop: 05/31/18 23:31 Last Admin: 05/26/18 10:44 Dose: 200 mls/hr Morphine Sulfate (Morphine) 1 mg IVP Q4H PRN PRN Reason: Pain, moderate (4-7) Last Admin: 05/25/18 18:11 Dose: 1 mg Mupirocin (Bactroban Ointment) 0 gm TOP TID [facility] Last Admin: 05/26/18 10:46 Dose: 1 applic Gmyoe-8-Lpgx Ethyl Esters (Lovaza) 2 gm PO BID [facility] Last Admin: 05/26/18 10:45 Dose: Not Given Pantoprazole Sodium (Protonix Ec Tab) 40 mg PO 0600 [facility] Last Admin: 05/26/18 05:23 Dose: 40 mg Sennosides (Senokot Tab) 17.2 mg PO HS [facility] Last Admin: 05/25/18 21:18 Dose: Not Given - Labs Labs: 05/26/18 05:30 05/26/18 05:30 PT 12.6 SECONDS (9.4-12.5) H 05/24/18 21:45 INR 1.10 (0.93-1.08) H 05/24/18 21:45 APTT 37.4 Seconds (25.1-36.5) H 05/24/18 21:45 - Additional Findings Additional findings: - Constitutional Appears: No Acute Distress - Head Exam Head Exam: ATRAUMATIC, NORMAL INSPECTION - Eye Exam Eye Exam: Normal appearance, PERRL - ENT Exam ENT Exam: Mucous Membranes Moist - Respiratory Exam Respiratory Exam: Clear to Auscultation Bilateral. absent: Rales, Rhonchi, Wheezes - Cardiovascular Exam Cardiovascular Exam: REGULAR RHYTHM, +S1, +S2. absent: Gallop, Rubs, Systolic Murmur - GI/Abdominal Exam GI & Abdominal Exam: Normal Bowel Sounds, Soft. absent: Tenderness - Extremities Exam Extremities exam: Negative for: calf tenderness, pedal edema - Neurological Exam Neurological exam: Alert, CN II-XII Intact, Oriented x3 - Psychiatric Exam Psychiatric exam: Normal Affect, Normal Mood - Skin Skin Exam: Dry, Normal Color, Warm Additional comments: Right antecubital aspect extending 2cm inferior to crease; erythema, edema decreased since admission. no fluctuant area or drainage noted Assessment and Plan - Assessment and Plan (Free Text) Assessment: 82 year old female with PMH COPD, asthma, HTN, and TIA, presents for right antecubital area swelling, found to have right basilic vein thrombophlebitis with superimposed cellulitis: Right arm thrombophlebitis with superimposed cellulitis: - Extremity u/s of right arm: shows acute superficial thrombophlebitis of left basilic vein above the elbow. No DVT. - CAT upper extremity showed cellulitis in antecubital fossa, no drainable fluid collection. no osteomyelitis. - afebrile, no leukocytosis - Elbow xray (05/19) was negative - In Ed, received IV Vancomycin and Zosyn - ID consulted. Appreciate recs - On Zyvox Day 2 - Blood cultures and wound culture NTD - Elevated ESR and CRP, low procal - UA pos for infection, however, patient is asymptomatic. Hypercholesterolemia: - lipid panel reviewed - Started lovaza - c/w home lipitor Hx of Hypertension: - Hold home Amlodipine - monitor BP History of TIA - Continue with home ASA, clopidogrel History of COPD and Asthma: - Duonebs GI/DVT prophylaxis - Protonix - Lovenox subQ (patient refusing it. Discussed with patient regarding adherence) . - SCD's Case seen and discussed with Dr Amezcua. Bindu Hagan, PGY2 <Gregg Amezcua U - Last Filed: 05/26/18 16:29> Objective - Vital Signs/Intake and Output Vital Signs (last 24 hours): Temp Pulse Resp BP Pulse Ox 97.4 F L 68 18 135/67 96 05/26/18 07:44 05/26/18 07:44 05/26/18 07:44 05/26/18 07:44 05/26/18 07:44 Intake and Output: 05/26/18 05/26/18 06:59 18:59 Intake Total 420 Balance 420 - Medications Medications: Current Medications Albuterol/Ipratropium (Duoneb 3 Mg/0.5 Mg (3 Ml) Ud) 3 ml IH Q6H [facility] Stop: 06/18/18 14:31 Last Admin: 05/26/18 14:00 Dose: Not Given Arformoterol Tartrate (Brovana) 15 mcg IH [id number] [facility] Last Admin: 05/26/18 07:27 Dose: 15 mcg Aspirin (Ecotrin) 81 mg PO DAILY [facility] Last Admin: 05/26/18 10:45 Dose: 81 mg Atorvastatin Calcium (Lipitor) 40 mg PO DAILY [facility] Last Admin: 05/26/18 10:45 Dose: 40 mg Clopidogrel Bisulfate (Plavix) 75 mg PO DAILY [facility] Last Admin: 05/26/18 10:45 Dose: 75 mg Docusate Sodium (Colace) 100 mg PO TID [facility] Last Admin: 05/26/18 14:04 Dose: 100 mg Enoxaparin Sodium (Lovenox) 40 mg SC DAILY [facility] PRN Reason: Protocol Last Admin: 05/26/18 10:45 Dose: Not Given Linezolid (Zyvox 600mg/300ml D5w) 600 mg in 300 mls @ 200 mls/hr IVPB Q12 [facility] PRN Reason: Protocol Stop: 05/31/18 23:31 Last Admin: 05/26/18 10:44 Dose: 200 mls/hr Morphine Sulfate (Morphine) 1 mg IVP Q4H PRN PRN Reason: Pain, moderate (4-7) Last Admin: 05/25/18 18:11 Dose: 1 mg Mupirocin (Bactroban Ointment) 0 gm TOP TID [facility] Last Admin: 05/26/18 14:03 Dose: 1 applic Oonsn-3-Roeh Ethyl Esters (Lovaza) 2 gm PO BID [facility] Last Admin: 05/26/18 10:45 Dose: Not Given Pantoprazole Sodium (Protonix Ec Tab) 40 mg PO 0600 [facility] Last Admin: 05/26/18 05:23 Dose: 40 mg Sennosides (Senokot Tab) 17.2 mg PO HS [facility] Last Admin: 05/25/18 21:18 Dose: Not Given - Labs Labs: 05/26/18 05:30 05/26/18 05:30 PT 12.6 SECONDS (9.4-12.5) H 05/24/18 21:45 INR 1.10 (0.93-1.08) H 05/24/18 21:45 APTT 37.4 Seconds (25.1-36.5) H 05/24/18 21:45 Attending/Attestation - Attestation I have personally seen and examined this patient.: Yes I have fully participated in the care of the patient.: Yes I have reviewed all pertinent clinical information, including history, physical exam and plan: Yes Notes (Text): Please see/read my dictated notes.
[2018-05-26 12:50] LABS: URINE BILIRUBIN NEGATIVE (NEGATIVE); URINE BLOOD NEGATIVE (NEGATIVE); URINE GLUCOSE (UA) NEGATIVE (NEGATIVE); URINE LEUKOCYTE ESTERASE NEGATIVE Leu/uL (NEGATIVE); URINE PROTEIN TRACE mg/dL (<30 mg/dL); URINE UROBILINOGEN 0.2 E.U./dL (<1 E.U./dL)
[2018-05-26 12:52] LABS: URINE APPEARANCE CLEAR (CLEAR); URINE COLOR YELLOW (YELLOW)
[2018-05-26 13:11] LABS: URINE RBC 0 - 2 /hpf (0-2); URINE WBC 0 - 2 /hpf (0-6)
[2018-05-26 13:12] LABS: URINE BACTERIA MOD (NEG)
--- NOTE | 2018-05-26 16:38 | PN ---
DATE: 05/26/2018 SUBJECTIVE: The patient is seen in room 367, bed 2. The patient's overnight nurses' notes were reviewed and the patient's clinical condition discussed with the patient's nurse at present. According to the patient's nurses, the patient has been refusing IV antibiotics, IV insertion, IV line placement, refusing multiple medications including Lovaza, including Lovenox, including other medications. The patient appears to be noncompliant, has been refusing treatment and medications as per the nurses. I have met with the patient extensively at the bedside with the medical device sales representative. I have explained to the patient about her diagnosis, treatment plan, treatment options, recommendation by Surgery and Infectious Disease, and I have advised the patient to comply with the above and I have told the patient extensively about need for continuation of the intravenous antibiotic and to order therapeutic interventions which I have advised the patient to comply with, which the patient acknowledged and understand. All questions concerned answered. OBJECTIVE: VITAL SIGNS: T-max 98.2; pulse 71, 68, 64; blood pressure 135/67, 141/74; respirations 18, O2 sat 95% to 96%. GENERAL: The patient is seen lying in the bed. HEENT: Head: Normocephalic, atraumatic. [place] conjunctivae. Anicteric sclerae. No oropharyngeal lesion. NECK: No neck rigidity. CHEST: Kyphosis. LUNGS: Show no rales, crackles, or wheezing. CARDIOVASCULAR: Shows S1 and S2, regular rhythm. Questionable soft systolic murmur in the left sternal border. ABDOMEN: Soft. Positive bowel sound. GENITALIA: Female. RECTAL: Deferred. EXTREMITIES: Lower extremities show no pitting, no calf tenderness, no Homans sign. Right upper extremity antecubital area still shows hard localized area of swelling only in the antecubital area of the distal right arm and the proximal right forearm has no erythema, swelling, or tenderness noted; only swelling and tenderness and hard induration noted in the right antecubital area. The patient's range of motion of the right elbow has significantly improved since admission. MUSCULOSKELETAL: Shows a body mass index of 21. NEUROLOGIC: Gait examination is not tested. According to the nurses' notes, the patient has been ambulating independently. DIAGNOSTICS: 05/26: WBC 9, hemoglobin and hematocrit 12 and 36.6, and platelets 362. Granulocytes, 71% segs. Sodium 139, potassium 3.9, chloride 102, CO2 of 30, anion gap 11. BUN 7, creatinine 0.9. GFR is greater than 60. Glucose 111. Lactic acid 0.9. LFTs are normal. Microbiology, abscess in the right antecubital area, cultures negative. Blood cultures negative.. The patient seen by Infectious Disease. Their recommendations noted. The patient seen by Surgery. Their recommendations noted. IMPRESSION: 1. Right antecubital area cellulitis versus persistent area of induration, possible localized abscess with skin and skin structure infection. 2. Acute right basilic vein thrombophlebitis. 3. History of hypertension. 4. Poor compliance and noncompliance. 5. Transient anemia. 6. Granulocytosis. 7. Elevated erythrocyte sedimentation rate of greater than 100. 8. Elevated high sensitivity C-reactive protein of greater than 15 and elevated C-reactive protein of greater than 68. 9. Hypertriglyceridemia and hypercholesterolemia. 10. Questionable urinary tract infection with bacteriuria, pyuria, microscopic hematuria, and proteinuria. 1. Right forearm, right antecubital area cellulitis versus questionable early abscess with skin and skin structure infection. 2. Acute right basilic vein superficial thrombophlebitis. 3. History of hypertension, presently normotension. 4. Normocytic anemia with granulocytosis. 5. Elevated erythrocyte sedimentation rate of 100. 6. Elevated high sensitivity C-reactive protein of greater than 15 and elevated C-reactive protein of greater than 68. 7. Prediabetes with hemoglobin A1c of 6.3. 8. Hypertriglyceridemia and hypercholesterolemia. 9. Questionable urinary tract infection with bacteriuria, pyuria, microscopic hematuria, proteinuria. 10. History of chronic obstructive pulmonary disease and former smoker. 11. Right antecubital area soft tissue swelling and subcutaneous fat stranding and subcutaneous fluid in the right antecubital area. 12. History of right breast carcinoma status post lumpectomy, status post tamoxifen treatment. 13. History of transient ischemic attack, history of hysterectomy. 14. History of right ear hearing deficit, history of osteoporosis, history of diverticulosis, history of transient cerebral ischemia, history of gastroenteritis. 1. Right antecubital area cellulitis versus questionable abscess with fatty infiltration in the right elbow area and associated acute right basilic vein superficial thrombophlebitis. 2. Right antecubital area cellulitis versus abscess with induration and pain and swelling, status post p.o. antibiotic treatment with failure and poor response. 3. History of hypertension. 4. Granulocytosis. 5. Chronic obstructive pulmonary disease. 6. History of transient ischemic attack, history of hyperlipidemia, hypertriglyceridemia. 7. History of right breast carcinoma. PLAN: At this time, the patient is followed up with Surgery, Infectious Disease. Current treatment ordered Bactroban cream to the right antecubital area 3 times a day, Brovana 15 mcg every 12 hours, Colace 100 mg 3 times a day, DuoNeb nebulizer every 6 hours, Ecotrin 81 mg daily, Lipitor 40 mg daily, Lovaza 2 g twice a day, Lovenox 40 mg subcu daily, morphine IV every 4 hours p.r.n., Plavix 75 mg daily, Protonix 40 mg daily, Senokot 17.2 mg at bedtime, Zyvox 600 mg IV every 12 hours. The patient has been ordered out of bed to chair. SCDs, AMINA stockings, occupational therapy, physical therapy ordered. The patient updated about the treatment plan, recommendation by Infectious Disease, Surgery, extensively discussed with the patient in layman language. All questions concerned answered. The patient is to continue the above therapeutic intervention as ordered by the Infectious Disease, Surgery, and Medicine. Dictated and electronically signed, not read. Gregg Amezcua MD [facility]
[2018-05-26 18:43] VITALS: RESP 20
[2018-05-27] MEDS: Albuterol-Ipratrop 3 mg / 0.5 (3 ml) UD IH SCH ×3 (01:33→13:38)
[2018-05-27] MEDS: Pantoprazole 40 mg EC Tab PO SCH (05:24)
[2018-05-27] MEDS: Mupirocin 2% Ointment 15 GM TUBE TOP SCH ×2 (06:33→13:37)
[2018-05-27 07:52] VITALS: BP 140/69; PULSE 62; TEMP 98; O2SAT 95
[2018-05-27] MEDS: Arformoterol 15 mcg/2 ml Inh Sol IH SCH (08:00)
[2018-05-27] MEDS: Enoxaparin 40 mg Syringe SC SCH ×3 (09:37→11:21)
[2018-05-27] MEDS: Omega-3-Acid Ethyl Esters 1 GM Cap PO SCH ×2 (09:37→17:30)
[2018-05-27] MEDS: Linezolid 600 mg in D5W 300 ml 600 MG/300 ML BAG IVPB SCH (09:38)
--- NOTE | 2018-05-27 11:15 | CP.PCM.PN ---
Subjective - Date & Time of Evaluation Date of Evaluation: 05/27/18 Time of Evaluation: 11:11 - Subjective Subjective: Bindu Hagan, PGY2, Medicine Progress Note for Dr Amezcua: Patient seen and examined at bedside. No acute events overnight. Patient reports improvement of right arm swelling, but still has pain and mild induration. Denies fevers, chills, nausea, vomiting, abdominal pain, urinary symptoms. Objective - Vital Signs/Intake and Output Vital Signs (last 24 hours): Temp Pulse Resp BP Pulse Ox 98 F 62 20 140/69 95 05/27/18 07:51 05/27/18 07:51 05/27/18 07:51 05/27/18 07:51 05/27/18 07:51 Intake and Output: 05/27/18 05/27/18 06:59 18:59 Intake Total 1200 Balance 1200 - Medications Medications: Current Medications Albuterol/Ipratropium (Duoneb 3 Mg/0.5 Mg (3 Ml) Ud) 3 ml IH Q6H [facility] Stop: 06/18/18 14:31 Last Admin: 05/27/18 08:30 Dose: Not Given Arformoterol Tartrate (Brovana) 15 mcg IH [id number] [facility] Last Admin: 05/27/18 08:00 Dose: Not Given Aspirin (Ecotrin) 81 mg PO DAILY [facility] Last Admin: 05/27/18 09:36 Dose: 81 mg Atorvastatin Calcium (Lipitor) 40 mg PO DAILY [facility] Last Admin: 05/27/18 09:36 Dose: 40 mg Clopidogrel Bisulfate (Plavix) 75 mg PO DAILY [facility] Last Admin: 05/27/18 09:38 Dose: 75 mg Docusate Sodium (Colace) 100 mg PO TID [facility] Last Admin: 05/27/18 09:36 Dose: 100 mg Enoxaparin Sodium (Lovenox) 40 mg SC DAILY [facility] PRN Reason: Protocol Last Admin: 05/27/18 09:42 Dose: Not Given Linezolid (Zyvox 600mg/300ml D5w) 600 mg in 300 mls @ 200 mls/hr IVPB Q12 [facility] PRN Reason: Protocol Stop: 05/31/18 23:31 Last Admin: 05/27/18 09:38 Dose: 200 mls/hr Morphine Sulfate (Morphine) 1 mg IVP Q4H PRN PRN Reason: Pain, moderate (4-7) Last Admin: 05/25/18 18:11 Dose: 1 mg Mupirocin (Bactroban Ointment) 0 gm TOP Q8H [facility] Last Admin: 05/27/18 06:33 Dose: 1 dose Zqchu-6-Xlzf Ethyl Esters (Lovaza) 2 gm PO BID [facility] Last Admin: 05/27/18 09:37 Dose: 2 gm Pantoprazole Sodium (Protonix Ec Tab) 40 mg PO 0600 [facility] Last Admin: 05/27/18 05:24 Dose: 40 mg Sennosides (Senokot Tab) 17.2 mg PO HS [facility] Last Admin: 05/26/18 21:14 Dose: Not Given - Labs Labs: 05/26/18 05:30 05/26/18 05:30 PT 12.6 SECONDS (9.4-12.5) H 05/24/18 21:45 INR 1.10 (0.93-1.08) H 05/24/18 21:45 APTT 37.4 Seconds (25.1-36.5) H 05/24/18 21:45 - Additional Findings Additional findings: - Constitutional Appears: No Acute Distress - Head Exam Head Exam: ATRAUMATIC, NORMAL INSPECTION - Eye Exam Eye Exam: Normal appearance, PERRL - ENT Exam ENT Exam: Mucous Membranes Moist - Respiratory Exam Respiratory Exam: Clear to Auscultation Bilateral. absent: Rales, Rhonchi, Wheezes - Cardiovascular Exam Cardiovascular Exam: REGULAR RHYTHM, +S1, +S2. absent: Gallop, Rubs, Systolic Murmur - GI/Abdominal Exam GI & Abdominal Exam: Normal Bowel Sounds, Soft. absent: Tenderness - Extremities Exam Extremities exam: Negative for: calf tenderness, pedal edema - Neurological Exam Neurological exam: Alert, CN II-XII Intact, Oriented x3 - Psychiatric Exam Psychiatric exam: Normal Affect, Normal Mood - Skin Skin Exam: Dry, Normal Color, Warm Additional comments: Right antecubital aspect extending 2cm inferior to crease; erythema, edema decreased since admission. no fluctuant area or drainage noted Assessment and Plan - Assessment and Plan (Free Text) Assessment: 82 year old female with PMH COPD, asthma, HTN, and TIA, presents for right antecubital area swelling, found to have right basilic vein thrombophlebitis with superimposed cellulitis: Right arm thrombophlebitis with superimposed cellulitis: - Extremity u/s of right arm: shows acute superficial thrombophlebitis of left basilic vein above the elbow. No DVT. - CAT upper extremity showed cellulitis in antecubital fossa, no drainable fluid collection. no osteomyelitis. - afebrile, no leukocytosis - Elbow xray (05/19) was negative - In Ed, received IV Vancomycin and Zosyn - ID consulted. Appreciate recs - On Zyvox Day 3 - Bactroban ointment - Blood cultures and wound culture NTD - Elevated ESR and CRP, low procal - UA pos for infection, however, patient is asymptomatic. Hypercholesterolemia: - lipid panel reviewed - Continue with lovaza. Patient refused, discussed importance of adherence to medication regimen. - c/w home lipitor Hx of Hypertension: - Hold home Amlodipine - monitor BP History of TIA - Continue with home ASA, clopidogrel History of COPD and Asthma: - Duonebs GI/DVT prophylaxis - Protonix - Lovenox subQ (patient refusing it. Discussed with patient regarding adherence) . - SCD's SW: discharge home when medically cleared. Upon discharge, patient will follow up with Dr Amezcua. Case seen and discussed with Dr Amezcua. Bindu Hagan, PGY2
--- NOTE | 2018-05-27 12:49 | CP.PCM.PN ---
Subjective - Date & Time of Evaluation Date of Evaluation: 05/27/18 Time of Evaluation: 08:50 - Subjective Subjective: Still with swelling of right antecubital area but a little softer, and decreased erythema, but still painful according to the patient. Objective - Vital Signs/Intake and Output Vital Signs (last 24 hours): Temp Pulse Resp BP Pulse Ox 98 F 62 20 140/69 95 05/27/18 07:51 05/27/18 07:51 05/27/18 07:51 05/27/18 07:51 05/27/18 07:51 Intake and Output: 05/27/18 05/27/18 06:59 18:59 Intake Total 1200 Balance 1200 - Medications Medications: Current Medications Albuterol/Ipratropium (Duoneb 3 Mg/0.5 Mg (3 Ml) Ud) 3 ml IH Q6H [facility] Stop: 06/18/18 14:31 Last Admin: 05/27/18 01:33 Dose: Not Given Arformoterol Tartrate (Brovana) 15 mcg IH [id number] [facility] Last Admin: 05/26/18 19:48 Dose: 15 mcg Aspirin (Ecotrin) 81 mg PO DAILY [facility] Last Admin: 05/26/18 10:45 Dose: 81 mg Atorvastatin Calcium (Lipitor) 40 mg PO DAILY [facility] Last Admin: 05/26/18 10:45 Dose: 40 mg Clopidogrel Bisulfate (Plavix) 75 mg PO DAILY [facility] Last Admin: 05/26/18 10:45 Dose: 75 mg Docusate Sodium (Colace) 100 mg PO TID [facility] Last Admin: 05/26/18 17:31 Dose: Not Given Enoxaparin Sodium (Lovenox) 40 mg SC DAILY [facility] PRN Reason: Protocol Last Admin: 05/26/18 10:45 Dose: Not Given Linezolid (Zyvox 600mg/300ml D5w) 600 mg in 300 mls @ 200 mls/hr IVPB Q12 [facility] PRN Reason: Protocol Stop: 05/31/18 23:31 Last Admin: 05/26/18 21:11 Dose: 200 mls/hr Morphine Sulfate (Morphine) 1 mg IVP Q4H PRN PRN Reason: Pain, moderate (4-7) Last Admin: 05/25/18 18:11 Dose: 1 mg Mupirocin (Bactroban Ointment) 0 gm TOP Q8H [facility] Last Admin: 05/27/18 06:33 Dose: 1 dose Gcaeg-1-Mviq Ethyl Esters (Lovaza) 2 gm PO BID [facility] Last Admin: 05/26/18 17:38 Dose: Not Given Pantoprazole Sodium (Protonix Ec Tab) 40 mg PO 0600 [facility] Last Admin: 05/27/18 05:24 Dose: 40 mg Sennosides (Senokot Tab) 17.2 mg PO HS [facility] Last Admin: 05/26/18 21:14 Dose: Not Given - Labs Labs: 05/26/18 05:30 05/26/18 05:30 PT 12.6 SECONDS (9.4-12.5) H 05/24/18 21:45 INR 1.10 (0.93-1.08) H 05/24/18 21:45 APTT 37.4 Seconds (25.1-36.5) H 05/24/18 21:45 - Constitutional Appears: Non-toxic, Chronically Ill - Head Exam Head Exam: NORMAL INSPECTION - Neck Exam Neck Exam: absent: Meningismus - Respiratory Exam Respiratory Exam: Decreased Breath Sounds. absent: Rales - Cardiovascular Exam Cardiovascular Exam: +S1, +S2 - GI/Abdominal Exam GI & Abdominal Exam: Soft. absent: Tenderness - Extremities Exam Additional comments: right antecubital area still with induration but decreased erythema, no bleeding or oozing currently Assessment and Plan - Assessment and Plan (Free Text) Plan: Assessment Probable superimposed skin and skin structure infection with basilic vein thrombophlebitis over the right arm anetecubital area COPD HTN history of TIA Plan continue Zyvox day 3; blood cx are negative; reviewed CT arm results continue warm compress - discussed with Dr. Amezcua - will await further Surgical plans will continue to monitor clinically
[2018-05-27] MEDS ORDERED: Morphine 2 mg/2 mL syringe IVP PRN (16:37)
[2018-05-27] MEDS ORDERED: Linezolid 600 mg in D5W 300 ml 600 MG/300 ML BAG IVPB SCH (22:00)
--- NOTE | 2018-05-28 16:45 | DS ---
The patient was accepted to TCU by the patient's insurance. The patient was seen lying in the bed in room 367, bed 2. The patient has some complaints of right antecubital area pain. PHYSICAL EXAMINATION: VITAL SIGNS: T-max 98, pulse 62, blood pressure 140/69, respirations 20, O2 sat 95%. HEENT: Head: Normocephalic, atraumatic. [place] conjunctivae. Dry oral mucosa. NECK: No neck rigidity. CHEST: Kyphosis. LUNGS: Show no rales, crackles, or wheezing. CARDIOVASCULAR: S1 and S2, regular rhythm. ABDOMEN: Soft. Positive bowel sounds. GENITALIA: Female. RECTAL: Deferred. EXTREMITIES: Show no pitting edema, no calf tenderness, no Homans signs of the lower extremity. Upper extremity shows resolution of the erythema of the distal arm and proximal forearm, but positive antecubital area, hard indurated area which is tender to touch, which does not appear to have significantly reduced since the admission. The patient's flexion of the right elbow is improving. Motor strength is 5/5. NEUROLOGIC: The patient is alert, awake, and oriented x3. Cranial nerves II through XII intact. Gait examination is independent. DIAGNOSTICS: 05/27/2018, pending. Microbiology cultures, urine cultures no growth. Right arm wound cultures no growth. IMPRESSION: 1. Right antecubital area cellulitis versus questionable and possible right antecubital area indurated abscess with skin structure infection. 2. Hypertension. 3. Questionable poor compliance. 4. Elevated erythrocyte sedimentation rate of greater than 100. 5. Granulocytosis. 6. Hypertriglyceridemia, hyperlipidemia. 7. Elevated C-reactive protein of greater than 68 and elevated high sensitivity C-reactive protein of greater than 15. 8. Prediabetes with hemoglobin A1c of 6.3. 9. Questionable urinary tract infection with bacteriuria, pyuria, microscopic hematuria, trace proteinuria. 10. Right antecubital area soft tissue swelling and subcutaneous fat stranding with subcutaneous fluid in the right antecubital fossa. 11. Acute right basilic vein branch superficial thrombophlebitis. 12. Chronic obstructive pulmonary disease. 13. History of right breast carcinoma. 14. Constipation. PLAN: At this time, the patient's management was discussed with Infectious Disease. Recommends to continue IV Zyvox due to the slow resolution of the right antecubital area induration and hard swelling. We will consider re-evaluation by Surgery for possible consideration for surgical intervention. At present, the patient has been accepted to Transitional Care Unit as per the Social Service's notes. MEDICATIONS: The patient's discharge medications in Transitional Care Unit: Bactroban cream to the affected area of the right antecubital area 3 times a day, Brovana nebulizer 15 mcg every 12 hours, Colace 100 mg 3 times a day, DuoNeb nebulizer every 6 hours, Ecotrin 81 mg daily, Lipitor 40 mg daily, Lovaza 2 g twice a day, Lovenox 40 mg subcu daily, morphine 1 mg IV every 4 hours p.r.n., Plavix 75 mg daily, Protonix 40 mg daily, Senokot 17.2 mg at bedtime, Tylenol 650 mg every 6 hours p.r.n., Zyvox 600 mg IV every 12 hours. Time spent in the entire discharge process more than 45 minutes. ADDENDUM: The patient was extensively explained about the details of her medical condition, need for possible inpatient treatment with continuation of the IV antibiotics and possible consideration for surgical intervention. This was discussed and explained to the patient at length. The patient was also advised that once the patient is cleared by Surgery and Infectious Disease, then the patient will be considered for discharge and also depending upon the patient's approval of outpatient p.o. antibiotics. Dictated and electronically signed, not read. Gregg Amezcua MD
== END 2018-05-27 19:11 | DRG 300 ==
LOC: ED 13:56 → ERH 17:39 → 3RNO 20:29
PROVIDERS: ADMIT Internal Medicine; ATTEND Internal Medicine
DX: I80.8 Phlebitis and thrombophlebitis of other sites (principal); L03.113 Cellulitis of right upper limb; J44.1 Chronic obstructive pulmonary disease with (acute) exacerbation; N39.0 Urinary tract infection, site not specified; D64.9 Anemia, unspecified; E78.00 Pure hypercholesterolemia, unspecified; E78.1 Pure hyperglyceridemia; E78.5 Hyperlipidemia, unspecified; H91.90 Unspecified hearing loss, unspecified ear; I10 Essential (primary) hypertension; M81.0 Age-related osteoporosis without current pathological fracture; R73.03 Prediabetes; Z79.02 Long term (current) use of antithrombotics/antiplatelets; Z79.82 Long term (current) use of aspirin; Z79.899 Other long term (current) drug therapy; Z85.3 Personal history of malignant neoplasm of breast; Z86.73 Personal history of transient ischemic attack (TIA), and cerebral infarction without residual deficits; Z87.891 Personal history of nicotine dependence; Z90.710 Acquired absence of both cervix and uterus; Z91.19 Patient's noncompliance with other medical treatment and regimen; Z80.8 Family history of malignant neoplasm of other organs or systems; R70.0 Elevated erythrocyte sedimentation rate; R79.82 Elevated C-reactive protein (CRP)

== ENCOUNTER 2018-05-27 19:11 | Inpatient (IN) | payer MEDICARE, OTHER ==
[2018-05-27 19:59] VITALS: BMI 21.2
[2018-05-27] MEDS: Linezolid 600 mg in D5W 300 ml 600 MG/300 ML BAG IVPB SCH (21:41)
[2018-05-27] MEDS: Albuterol-Ipratrop 3 mg / 0.5 (3 ml) UD IH SCH (21:58)
[2018-05-28] MEDS: Albuterol-Ipratrop 3 mg / 0.5 (3 ml) UD IH SCH ×4 (02:00→20:12)
[2018-05-28] MEDS: Enoxaparin 40 mg Syringe SC SCH (05:43)
[2018-05-28] MEDS: Pantoprazole 40 mg EC Tab PO SCH (05:43)
[2018-05-28] MEDS: Arformoterol 15 mcg/2 ml Inh Sol IH SCH ×2 (07:19→20:11)
[2018-05-28] MEDS: Mupirocin 2% Ointment 15 GM TUBE TOP SCH ×2 (09:37→17:49)
[2018-05-28] MEDS: Omega-3-Acid Ethyl Esters 1 GM Cap PO SCH ×2 (09:39→17:51)
[2018-05-28] MEDS: Linezolid 600 mg in D5W 300 ml 600 MG/300 ML BAG IVPB SCH ×2 (09:48→22:17)
--- NOTE | 2018-05-28 10:06 | CP.PCM.HP ---
History of Present Illness - History of Present Illness History of Present Illness: Bindu Hagan, PGY2, H&P for Dr Amezcua: CC: swollen right arm 82 year old female with PMH of COPD, asthma, TIA on plavix, and HTN presents to ED for red, swollen right arm. She describes the pain to be 8/10 and achy all around her antecubital area and elbow. Denies fevers, chills, shortness of breath, chest pain, abdominal pain, burning or urinary symptoms. Three weeks ago, patient states that she was admitted to a hospital in [facility] for COPD exacerbation. At the time, an IV line was placed at the site, which bled profusely, however was left in place for a few days before removal. On 05/19, patient came to [facility] ED for pain and swelling of her right arm at the prior site , was discharged from ED with PO Clindamycin. After taking those meds, patient' s pain/symptoms did not improve, requiring her to come [facility] ED again. This admission, patient was afebrile, hemodynamically stable. Upper extremity US showed basilic vein thrombophlebitis with overlying cellulitis, treated with IV Zyvox as per ID. Patient was recommended TCU. Patient transferred to TCU for further rehab and management. PMD: Dr. Almonte Pharmacy: [facility] in [place] PMH: COPD, asthma, HTN, TIA on plavix Past surgical history: hysterectomy, lumpectomy Social history: Never smoked, drinks alcohol occasionally, denies use of recreational drugs. Family history: Mother of cancer, sister of neck cancer at 59 yo, brother of blood cancer at 42 yo. 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 Allergie: Iodine Home meds: Amlodipine 5mg Clopidogrel 5mg ASA 81 Acetaminophen Symbicort PRN Albuterol PRN Present on Admission - Present on Admission Any Indicators Present on Admission: No History of DVT/PE: No History of Uncontrolled Diabetes: No Urinary Catheter: No Decubitus Ulcer Present: No Review of Systems - Review of Systems All systems: reviewed and no additional remarkable complaints except Review of Systems: as per HPI Past Patient History - Infectious Disease Hx of Infectious Diseases: None - Tetanus Immunizations Tetanus Immunization: Unknown - Past Medical History & Family History Past Medical History?: Yes - Past Social History Smoking Status: Never Smoked - CARDIAC Hx Hypertension: Yes - PULMONARY Hx Chronic Obstructive Pulmonary Disease (COPD): Yes - NEUROLOGICAL Hx Neurological Disorder: Yes Hx Transient Ischemic Attacks (TIA): Yes - HEENT Hx HEENT Problems: Yes Hx Deafness: Yes (hearing aid rt ear) - RENAL Hx Chronic Kidney Disease: No - ENDOCRINE/METABOLIC Hx Endocrine Disorders: No - HEMATOLOGICAL/ONCOLOGICAL Hx Blood Disorders: No Hx Cancer: Yes (right breast CA w/ lumpectomy) - INTEGUMENTARY Hx Dermatological Problems: No - MUSCULOSKELETAL/RHEUMATOLOGICAL Hx Falls: No - GASTROINTESTINAL Hx Gastrointestinal Disorders: No - GENITOURINARY/GYNECOLOGICAL Hx Genitourinary Disorders: No Hx Reproductive Disorders: Yes (hysterectomy) - PSYCHIATRIC Hx Psychophysiologic Disorder: No - SURGICAL HISTORY Hx Surgeries: Yes Hx Hysterectomy: Yes Other/Comment: rt breast ca& lumpectomy - ANESTHESIA Hx Anesthesia: Yes Hx Anesthesia Reactions: No Meds Allergies/Adverse Reactions: Allergies Allergy/AdvReac Type Severity Reaction Status Date / Time iodine Allergy RASH Verified 05/27/18 19:59 Iodine and Iodide Containing Allergy RASH Verified 05/27/18 19:59 Produc Physical Exam - Additional Findings Additional findings: - Constitutional Appears: No Acute Distress - Head Exam Head Exam: ATRAUMATIC, NORMAL INSPECTION - Eye Exam Eye Exam: Normal appearance, PERRL - ENT Exam ENT Exam: Mucous Membranes Moist - Respiratory Exam Respiratory Exam: Clear to Auscultation Bilateral. absent: Rales, Rhonchi, Wheezes - Cardiovascular Exam Cardiovascular Exam: REGULAR RHYTHM, +S1, +S2. absent: Gallop, Rubs, Systolic Murmur - GI/Abdominal Exam GI & Abdominal Exam: Normal Bowel Sounds, Soft. absent: Tenderness - Extremities Exam Extremities exam: Negative for: calf tenderness, pedal edema - Neurological Exam Neurological exam: Alert, CN II-XII Intact, Oriented x3 - Psychiatric Exam Psychiatric exam: Normal Affect, Normal Mood - Skin Skin Exam: Dry, Normal Color, Warm Additional comments: Right antecubital aspect extending 2cm inferior to crease; erythema, edema decreased since admission. Results - Vital Signs Recent Vital Signs: Last Vital Signs Temp 98.4 F 05/28/18 00:25 Pulse 75 05/28/18 07:24 Resp 18 05/28/18 00:25 BP 151/66 H 05/28/18 00:25 Pulse Ox Assessment & Plan - Assessment and Plan (Free Text) Assessment: 82 year old female with PMH COPD, asthma, HTN, and TIA, presents for right antecubital area swelling, found to have right basilic vein thrombophlebitis with superimposed cellulitis. Patient transferred to TCU for rehab and management: Right arm thrombophlebitis with superimposed cellulitis: - Extremity u/s of right arm: shows acute superficial thrombophlebitis of left basilic vein above the elbow. No DVT. - CAT upper extremity showed cellulitis in antecubital fossa, no drainable fluid collection. no osteomyelitis. - afebrile, no leukocytosis - Elbow xray (05/19) was negative - In Ed, received IV Vancomycin and Zosyn - ID consulted. Appreciate recs - On Zyvox Day 4 - Bactroban ointment - Blood cultures and wound culture NTD - Elevated ESR and CRP, low procal - UA pos for infection, however, patient is asymptomatic. Hypercholesterolemia: - lipid panel reviewed - Continue with lovaza. Patient refused, discussed importance of adherence to medication regimen. - c/w home lipitor Hx of Hypertension: - Hold home Amlodipine - monitor BP History of TIA - Continue with home ASA, clopidogrel History of COPD and Asthma: - Duonebs GI/DVT prophylaxis - Protonix - Lovenox subQ (patient refusing it. Discussed with patient regarding adherence) . - SCD's Upon discharge, patient will follow up with Dr Almonte. Case seen and discussed with Dr Amezcua. Bindu Hagan, PGY2
[2018-05-28 10:29] LABS: ALBUMIN 3.4 g/dL (3.0-4.8); ALT/SGPT 26 U/L (7-56); AST/SGOT 32 U/L (14-36); BILIRUBIN,DIRECT 0.2 mg/dL (0.0-0.4); BLOOD UREA NITROGEN 8 mg/dL (7-21); CALCIUM 9.2 mg/dL (8.4-10.5); GFR AFRICAN-AMERICAN > 60; GFR NON-AFRICAN AMERICAN 53
[2018-05-28 10:30] LABS: BASO # 0.04 K/mm3 (0.0-2.0); BASO % 0.5 % (0.0-3.0); EOS # 0.6 (0.0-0.7); EOS % 7.8 % (1.5-5.0); GRAN # 4.84 (1.4-6.5); GRAN % 63.8 % (50.0-68.0); LYMPH # 1.7 (1.2-3.4); LYMPH % 22.4 % (22.0-35.0); MEAN CELL VOLUME 84.2 fl (80.0-105.0); MEAN CORPUSCULAR HEMOGLOBIN 27.5 pg (25.0-35.0); MEAN CORPUSCULAR HGB CONC 32.6 g/dl (31.0-37.0); MEAN PLATELET VOLUME 8.6 fl (7.0-11.0); MONO # 0.4 (0.1-0.6); MONO % 5.5 % (1.0-6.0); RBC 4.37 10^6/uL (3.5-6.1); RED CELL DISTRIBUTION WIDTH 15.4 % (11.5-14.5); WHITE BLOOD COUNT 7.6 10^3/ul (4.5-11.0)
--- NOTE | 2018-05-28 11:57 | CP.PCM.CON ---
History of Present Illness - History of Present Illness History of Present Illness: 82 year old female with PMH of COPD, HTN, history of TIA came in to [facility] initially because of arm swelling on the right weeks after she had an IV line placed in the antecubital area. She was found to have superimposed cellulitis with basilic vein thrombophlebitis. She has been managed conservatively with antibiotics and warm compress and is now transferred to [facility] for physical rehab and continued medical therapy. Infectious diseases consult is requested to continue her antibiotic therapy. She denies fever or chills, no nausea or vomting, no headache or dizziness, no chest pain, no SOB, cough or rhinorrhea, no abdominal pain, no diarrhea, no dysuria. She states her arm is feeling a little better. Review of Systems - Review of Systems All systems: reviewed and no additional remarkable complaints except (as per HPI ) Past Patient History - Infectious Disease Hx of Infectious Diseases: None - Tetanus Immunizations Tetanus Immunization: Unknown - Past Medical History & Family History Past Medical History?: Yes - Past Social History Smoking Status: Never Smoked - CARDIAC Hx Hypertension: Yes - PULMONARY Hx Chronic Obstructive Pulmonary Disease (COPD): Yes - NEUROLOGICAL Hx Neurological Disorder: Yes Hx Transient Ischemic Attacks (TIA): Yes - HEENT Hx HEENT Problems: Yes Hx Deafness: Yes (hearing aid rt ear) - RENAL Hx Chronic Kidney Disease: No - ENDOCRINE/METABOLIC Hx Endocrine Disorders: No - HEMATOLOGICAL/ONCOLOGICAL Hx Blood Disorders: No Hx Cancer: Yes (right breast CA w/ lumpectomy) - INTEGUMENTARY Hx Dermatological Problems: No - MUSCULOSKELETAL/RHEUMATOLOGICAL Hx Musculoskeletal Disorders: No Hx Falls: No - GASTROINTESTINAL Hx Gastrointestinal Disorders: No - GENITOURINARY/GYNECOLOGICAL Hx Genitourinary Disorders: No - PSYCHIATRIC Hx Psychophysiologic Disorder: No - SURGICAL HISTORY Hx Surgeries: Yes Hx Hysterectomy: Yes Other/Comment: rt breast ca& lumpectomy - ANESTHESIA Hx Anesthesia: Yes Hx Anesthesia Reactions: No Meds Allergies/Adverse Reactions: Allergies Allergy/AdvReac Type Severity Reaction Status Date / Time iodine Allergy RASH Verified 05/27/18 19:59 Iodine and Iodide Containing Allergy RASH Verified 05/27/18 19:59 Produc - Medications Medications: Current Medications Albuterol/Ipratropium (Duoneb 3 Mg/0.5 Mg (3 Ml) Ud) 3 ml IH Q6H JANETTE PRN Reason: Protocol Arformoterol Tartrate (Brovana) 15 mcg IH [id number] JANETTE PRN Reason: Protocol Aspirin (Ecotrin) 81 mg PO DAILY JANETTE PRN Reason: Protocol Atorvastatin Calcium (Lipitor) 40 mg PO DAILY JANETTE PRN Reason: Protocol Clopidogrel Bisulfate (Plavix) 75 mg PO DAILY JANETTE PRN Reason: Protocol Docusate Sodium (Colace) 100 mg PO TID JANETTE PRN Reason: Protocol Enoxaparin Sodium (Lovenox) 40 mg SC 0600 JANETTE PRN Reason: Protocol Linezolid (Zyvox 600mg/300ml D5w) 600 mg in 300 mls @ 200 mls/hr IVPB Q12 JANETTE PRN Reason: Protocol Stop: 06/01/18 22:01 Morphine Sulfate (Morphine) 1 mg IVP Q4H PRN; Protocol PRN Reason: Pain, moderate (4-7) Mupirocin (Bactroban Ointment) 0 gm TOP Q8H JANETTE PRN Reason: Protocol Crric-4-Aair Ethyl Esters (Lovaza) 2 gm PO BID JANETTE PRN Reason: Protocol Pantoprazole Sodium (Protonix Ec Tab) 40 mg PO 0600 JANETTE PRN Reason: Protocol Sennosides (Senokot Tab) 17.2 mg PO HS JANETTE PRN Reason: Protocol Physical Exam - Head Exam Head Exam: NORMAL INSPECTION - Neck Exam Neck exam: Negative for: Meningismus - Respiratory Exam Respiratory Exam: Decreased Breath Sounds - Cardiovascular Exam Cardiovascular Exam: +S1, +S2 - GI/Abdominal Exam GI & Abdominal Exam: Soft. absent: Tenderness - Extremities Exam Additional comments: right arm with slowly improving swelling and induration over the antecubital area Results - Labs Result Diagrams: 05/28/18 10:10 05/28/18 10:10 Assessment & Plan - Assessment and Plan (Free Text) Plan: Assessment Probable superimposed skin and skin structure infection with basilic vein thrombophlebitis over the right arm anetecubital area COPD HTN history of TIA Plan continue Zyvox day 4 for at least 7-10 days; blood cx are negative; reviewed CT arm results continue warm compress - discussed with Dr. Amezcua - will await further Surgical plans will continue to monitor clinically
--- NOTE | 2018-05-28 14:26 | CP.PCM.PN ---
<Maryan De Leon - Last Filed: 05/28/18 14:20> Subjective - Date & Time of Evaluation Date of Evaluation: 05/28/18 Time of Evaluation: 14:21 - Subjective Subjective: Surgery: Dr. Queen Pt seen and examined. States she feels a lot better and that the redness around her R arm has improved significantly. She denies any pain in the area. She's tolerating her diet and ambulating without difficulty. Denies fevers/chills. Objective - Vital Signs/Intake and Output Vital Signs (last 24 hours): Temp Pulse Resp BP Pulse Ox 98.4 F 75 18 151/66 H 05/28/18 00:25 05/28/18 07:24 05/28/18 00:25 05/28/18 00:25 - Medications Medications: Current Medications Albuterol/Ipratropium (Duoneb 3 Mg/0.5 Mg (3 Ml) Ud) 3 ml IH Q6H JANETTE PRN Reason: Protocol Last Admin: 05/28/18 13:28 Dose: Not Given Arformoterol Tartrate (Brovana) 15 mcg IH [id number] JANETTE PRN Reason: Protocol Last Admin: 05/28/18 07:19 Dose: 15 mcg Aspirin (Ecotrin) 81 mg PO DAILY JANETTE PRN Reason: Protocol Last Admin: 05/28/18 09:38 Dose: 81 mg Atorvastatin Calcium (Lipitor) 40 mg PO DAILY JANETTE PRN Reason: Protocol Last Admin: 05/28/18 09:39 Dose: 40 mg Clopidogrel Bisulfate (Plavix) 75 mg PO DAILY JANETTE PRN Reason: Protocol Last Admin: 05/28/18 09:39 Dose: 75 mg Docusate Sodium (Colace) 100 mg PO TID JANETTE PRN Reason: Protocol Last Admin: 05/28/18 13:22 Dose: Not Given Enoxaparin Sodium (Lovenox) 40 mg SC 0600 JANETTE PRN Reason: Protocol Last Admin: 05/28/18 05:43 Dose: 40 mg Linezolid (Zyvox 600mg/300ml D5w) 600 mg in 300 mls @ 200 mls/hr IVPB Q12 JANETTE PRN Reason: Protocol Stop: 06/01/18 22:01 Last Admin: 05/28/18 09:48 Dose: 200 mls/hr Morphine Sulfate (Morphine) 1 mg IVP Q4H PRN; Protocol PRN Reason: Pain, moderate (4-7) Mupirocin (Bactroban Ointment) 0 gm TOP Q8H JANETTE PRN Reason: Protocol Last Admin: 05/28/18 09:37 Dose: 1 applic Lvmmu-[id number] Ethyl Esters (Lovaza) 2 gm PO BID JANETTE PRN Reason: Protocol Last Admin: 05/28/18 09:39 Dose: 2 gm Pantoprazole Sodium (Protonix Ec Tab) 40 mg PO 0600 JANETTE PRN Reason: Protocol Last Admin: 05/28/18 05:43 Dose: 40 mg Sennosides (Senokot Tab) 17.2 mg PO HS JANETTE PRN Reason: Protocol Last Admin: 05/27/18 21:49 Dose: Not Given - Labs Labs: 05/28/18 10:10 05/28/18 10:10 - Constitutional Appears: Well, No Acute Distress - Head Exam Head Exam: ATRAUMATIC, NORMOCEPHALIC - Eye Exam Eye Exam: Normal appearance - Respiratory Exam Respiratory Exam: NORMAL BREATHING PATTERN - Cardiovascular Exam Cardiovascular Exam: RRR - GI/Abdominal Exam GI & Abdominal Exam: Soft. absent: Tenderness - Extremities Exam Extremities Exam: absent: Tenderness Additional comments: R arm with cellulitis & induration; erythema markedly improved. No fluctuance or fluid collection appreciated - Neurological Exam Neurological Exam: Alert, Awake, Oriented x3 - Skin Skin Exam: Dry, Warm Assessment and Plan - Assessment and Plan (Free Text) Assessment: 82F with R arm cellulitis/thrombophlebitis Plan: - no distinct fluid collection to be drained however, will obtain US of the R arm to r/o collection - cont warm compresses - cont ABX - discussed with Dr. Bret De Leon <Tae Queen - Last Filed: 05/29/18 10:56> Objective - Vital Signs/Intake and Output Vital Signs (last 24 hours): Temp Pulse Resp BP Pulse Ox 98.6 F 71 18 121/71 96 05/28/18 16:00 05/28/18 16:00 05/28/18 16:00 05/28/18 16:00 05/28/18 16:00 - Medications Medications: Current Medications Albuterol/Ipratropium (Duoneb 3 Mg/0.5 Mg (3 Ml) Ud) 3 ml IH Q6H JANETTE PRN Reason: Protocol Last Admin: 05/29/18 07:29 Dose: 3 ml Arformoterol Tartrate (Brovana) 15 mcg IH [id number] JANETTE PRN Reason: Protocol Last Admin: 05/29/18 07:29 Dose: 15 mcg Aspirin (Ecotrin) 81 mg PO 0800 JANETTE PRN Reason: Protocol Last Admin: 05/29/18 08:29 Dose: 81 mg Atorvastatin Calcium (Lipitor) 40 mg PO DAILY JANETTE PRN Reason: Protocol Last Admin: 05/29/18 09:13 Dose: 40 mg Clopidogrel Bisulfate (Plavix) 75 mg PO DAILY JANETTE PRN Reason: Protocol Last Admin: 05/29/18 09:14 Dose: 75 mg Docusate Sodium (Colace) 100 mg PO TID JANETTE PRN Reason: Protocol Last Admin: 05/29/18 09:14 Dose: Not Given Enoxaparin Sodium (Lovenox) 40 mg SC 0600 JANETTE PRN Reason: Protocol Last Admin: 05/29/18 06:18 Dose: 40 mg Linezolid (Zyvox 600mg/300ml D5w) 600 mg in 300 mls @ 200 mls/hr IVPB Q12 JANETTE PRN Reason: Protocol Stop: 06/01/18 22:01 Last Admin: 05/29/18 09:13 Dose: 200 mls/hr Morphine Sulfate (Morphine) 1 mg IVP Q4H PRN; Protocol PRN Reason: Pain, moderate (4-7) Mupirocin (Bactroban Ointment) 0 gm TOP Q8H JANETTE PRN Reason: Protocol Last Admin: 05/29/18 09:14 Dose: 1 applic [id number] Ethyl Esters (Lovaza) 2 gm PO BID JANETTE PRN Reason: Protocol Last Admin: 05/29/18 09:13 Dose: 2 gm Pantoprazole Sodium (Protonix Ec Tab) 40 mg PO 0600 JANETTE PRN Reason: Protocol Last Admin: 05/29/18 06:18 Dose: 40 mg Sennosides (Senokot Tab) 17.2 mg PO HS JANETTE PRN Reason: Protocol Last Admin: 05/28/18 22:17 Dose: Not Given - Labs Labs: 05/28/18 10:10 05/28/18 10:10 Assessment and Plan - Assessment and Plan (Free Text) Assessment: Dx Thrrombophlebitis Right Basilic vein thrombosis($ weeks) post IV hospital Clinically resolving-rechecked per PMD Isaiah Ultrasound(Clinically not abscess) Cont Ab/Bactroban/Elevation/Hot moist comkpresses This consult done under my direct supervision Nico Queen MD FACS
[2018-05-29] MEDS: Albuterol-Ipratrop 3 mg / 0.5 (3 ml) UD IH SCH ×4 (01:17→19:27)
[2018-05-29] MEDS: Mupirocin 2% Ointment 15 GM TUBE TOP SCH ×3 (03:30→17:07)
[2018-05-29] MEDS: Pantoprazole 40 mg EC Tab PO SCH (06:18)
[2018-05-29] MEDS: Enoxaparin 40 mg Syringe SC SCH (06:18)
--- NOTE | 2018-05-29 07:22 | HP ---
DATE OF EXAM: 05/28/2018 HISTORY OF PRESENT ILLNESS: The patient is seen sitting up in the bed in room 322, bed 1. The patient is still on IV antibiotics. Overnight nurse's notes were reviewed. The patient still complains of persistent right antecubital area swelling. PHYSICAL EXAMINATION: VITAL SIGNS: T-max 98.4 to 98.6; pulse 71 to 75 to 80; blood pressure 121/71, 131/72, ; respiration 18; O2 sat 96%. GENERAL: The patient is seen sitting up in the bed. HEENT: Head normocephalic, atraumatic. [place] conjunctivae. Anicteric sclerae. No oropharyngeal lesion. No neck rigidity. CHEST: Kyphosis. LUNGS: No rales, crackles or wheezing. No rhonchi. CARDIOVASCULAR: S1, S2, regular rhythm. Unable to appreciate any murmur, gallop or rub. ABDOMEN: Soft. Positive bowel sound. GENITALIA: Female. RECTAL: Deferred. EXTREMITIES: Lower extremity shows no pitting edema, no calf numbness, no Homans' sign. Upper extremity examination shows positive right antecubital area persistent swelling which is tender and hard and indurated with resolution of the erythema and swelling of the distal arm and proximal forearm. There is no drainage noted from the right antecubital area. The right antecubital area lump is hard, tender, indurated with not much significant change since admission. MUSCULOSKELETAL: Body mass index of 21. NEUROLOGIC: The patient is alert, awake, oriented x3. Cranial nerves II-XII intact. DIAGNOSTICS: On 05/28/2018, WBC 7.6, hemoglobin/hematocrit is 12 and 36.8, platelet 353. Sodium 141, potassium 4.4, chloride 103, CO2 30, anion gap 13, BUN 8, creatinine 1, GFR greater than 60, glucose 179, calcium 9.2, magnesium 2.2. LFTs are normal. C-reactive protein is 52.1 and high sensitivity C-reactive protein greater than 15. ESR is 84 down from 100. Wound, blood cultures, urine cultures all negative. IMPRESSION AND PLAN: 1. Deconditioning. 2. Persistent right antecubital area cellulitis versus clinical abscess versus loculated cellulitis. 3. Hypertension. 4. Elevated erythrocyte sedimentation rate of 84. 5. Hyperglycemia with prediabetes. 6. Elevated C-reactive protein of greater than 52 and elevated high sensitivity C-reactive protein of greater than 15. 7. Chronic obstructive pulmonary disease. 8. History of right breast carcinoma status post lumpectomy, status post tamoxifen treatment. 9. History of transient ischemic attack. 10. Right antecubital area superimposed skin and skin structure infection. 11. Acute right basilic vein thrombophlebitis. 12. Acute right basilic vein above the elbow superficial cell thrombophlebitis with associated edema. 13. Hypercholesteremia. 14. Hypertriglyceridemia. PLAN: At this time, the patient seen by Surgery, recommending an ultrasound of the right antecubital area to rule out collection. Warm compresses ordered by Surgery and continuation of the antibiotics ordered. The patient's current medications, Bactroban cream to the right antecubital area three times a day, Brovana nebulizer 15 mcg every 12 hours, Colace 100 mg three times a day, DuoNeb nebulizer every 6 hours, Ecotrin 81 mg daily, Lipitor 40 mg daily, Lovaza 2 g twice a day, Lovenox 40 mg subcu daily, morphine 1 mg IV every 4 hours p.r.n., Plavix 75 mg daily, Protonix 40 mg daily, Senokot 17.2 mg at bedtime, , Zyvox 600 mg IV every 12 hours as recommended by Infectious Disease for at least 7-10 days. The patient updated about her condition, diagnosis, treatment plan, treatment options. The patient's condition discussed with Surgery, Dr. Queen regarding possible surgical intervention if needed depending upon the ultrasound results which is ordered by the Surgery. Results are pending. Dictated and electronically signed, not read. Gregg Amezcua MD
[2018-05-29] MEDS: Arformoterol 15 mcg/2 ml Inh Sol IH SCH ×2 (07:29→19:27)
[2018-05-29] MEDS: Linezolid 600 mg in D5W 300 ml 600 MG/300 ML BAG IVPB SCH ×2 (09:13→21:23)
[2018-05-29] MEDS: Omega-3-Acid Ethyl Esters 1 GM Cap PO SCH ×2 (09:13→17:08)
--- NOTE | 2018-05-29 10:17 | CP.PCM.PN ---
Subjective - Date & Time of Evaluation Date of Evaluation: 05/29/18 Time of Evaluation: 07:20 - Subjective Subjective: Patient seen and examined at bedside this AM. Patient denies any fevers, chills , but still some pain in her right antecubital fossa Objective - Vital Signs/Intake and Output Vital Signs (last 24 hours): Temp Pulse Resp BP Pulse Ox 98.6 F 71 18 121/71 96 05/28/18 16:00 05/28/18 16:00 05/28/18 16:00 05/28/18 16:00 05/28/18 16:00 - Medications Medications: Current Medications Albuterol/Ipratropium (Duoneb 3 Mg/0.5 Mg (3 Ml) Ud) 3 ml IH Q6H JANETTE PRN Reason: Protocol Last Admin: 05/29/18 07:29 Dose: 3 ml Arformoterol Tartrate (Brovana) 15 mcg IH [id number] JANETTE PRN Reason: Protocol Last Admin: 05/29/18 07:29 Dose: 15 mcg Aspirin (Ecotrin) 81 mg PO 0800 JANETTE PRN Reason: Protocol Last Admin: 05/29/18 08:29 Dose: 81 mg Atorvastatin Calcium (Lipitor) 40 mg PO DAILY JANETTE PRN Reason: Protocol Last Admin: 05/29/18 09:13 Dose: 40 mg Clopidogrel Bisulfate (Plavix) 75 mg PO DAILY JANETTE PRN Reason: Protocol Last Admin: 05/29/18 09:14 Dose: 75 mg Docusate Sodium (Colace) 100 mg PO TID JANETTE PRN Reason: Protocol Last Admin: 05/29/18 09:14 Dose: Not Given Enoxaparin Sodium (Lovenox) 40 mg SC 0600 JANETTE PRN Reason: Protocol Last Admin: 05/29/18 06:18 Dose: 40 mg Linezolid (Zyvox 600mg/300ml D5w) 600 mg in 300 mls @ 200 mls/hr IVPB Q12 JANETTE PRN Reason: Protocol Stop: 06/01/18 22:01 Last Admin: 05/29/18 09:13 Dose: 200 mls/hr Morphine Sulfate (Morphine) 1 mg IVP Q4H PRN; Protocol PRN Reason: Pain, moderate (4-7) Mupirocin (Bactroban Ointment) 0 gm TOP Q8H JANETTE PRN Reason: Protocol Last Admin: 05/29/18 09:14 Dose: 1 applic Oqiuz-6-Eozi Ethyl Esters (Lovaza) 2 gm PO BID JANETTE PRN Reason: Protocol Last Admin: 05/29/18 09:13 Dose: 2 gm Pantoprazole Sodium (Protonix Ec Tab) 40 mg PO 0600 JANETTE PRN Reason: Protocol Last Admin: 05/29/18 06:18 Dose: 40 mg Sennosides (Senokot Tab) 17.2 mg PO HS JANETTE PRN Reason: Protocol Last Admin: 05/28/18 22:17 Dose: Not Given - Labs Labs: 05/28/18 10:10 05/28/18 10:10 - Constitutional Appears: Well, Non-toxic, No Acute Distress - Head Exam Head Exam: ATRAUMATIC, NORMOCEPHALIC - Eye Exam Eye Exam: Normal appearance. absent: Conjunctival injection, Scleral icterus - ENT Exam ENT Exam: Mucous Membranes Moist, Normal Oropharynx - Respiratory Exam Respiratory Exam: NORMAL BREATHING PATTERN. absent: Accessory Muscle Use, Respiratory Distress - GI/Abdominal Exam GI & Abdominal Exam: absent: Distended - Extremities Exam Extremities Exam: absent: Calf Tenderness, Pedal Edema Additional comments: right antecubital fossa with moderate amount of erythema improved greatly since admit, small area of induration approximately 2x2cm with no palpable fluctuance - Neurological Exam Neurological Exam: Alert, Awake, Oriented x3 - Psychiatric Exam Psychiatric exam: Normal Affect, Normal Mood - Skin Skin Exam: Dry, Intact, Warm Assessment and Plan - Assessment and Plan (Free Text) Assessment: 82F with thrombophlebitis of the right basilic vein in the antecubital fossa Plan: US showed thrombosed vein but no subcutaneous fluid collection that should be drained surgically No surgical intervention indicated, patient is improving with warm compresses and antibiotics Patient is cleared for discharge from a surgical standpoint with PO antibitiotics and antibiotic ointment Patient seen and discussed with Dr. Bret Voss, PGY2
--- NOTE | 2018-05-29 10:58 | CP.PCM.PCO ---
Physician Communication Note - Physician Communication Note Physician Communication Note: Sono-no fluid/abscess-No further surgery now
--- NOTE | 2018-05-29 11:06 | PN ---
DATE: 05/29/2018 SUBJECTIVE: The patient is seen lying in the bed having breakfast in room 322, bed 1. Patient is still complaining of hard lump of the right antecubital area which is not changed with some pain in the right antecubital area. PHYSICAL EXAMINATION: VITAL SIGNS: T-max is 98.6, pulse 71, blood pressure 121/71, respirations 18, O2 sat 96%. HEENT: Head, normocephalic, atraumatic. HEENT examination shows pink conjunctivae. Anicteric sclerae. No oropharyngeal lesion. No neck rigidity. CHEST: Examination, kyphosis. LUNGS: No rales, crackles or wheezing. CARDIOVASCULAR: S1, S2. Regular rhythm. ABDOMEN: Soft. Positive bowel sound. GENITALIA: Female. RECTAL: Deferred. EXTREMITIES: Lower extremity shows no pitting edema, no calf tenderness, no Homans signs. Upper extremity shows right antecubital area hard indurated swelling, which is tender to touch and palpable tenderness. Gait examination is independent. MUSCULOSKELETAL: Body mass index of 21. NEUROLOGIC: The patient is alert, awake, oriented x3. Cranial nerves II-XII intact. DIAGNOSTICS: None from today. Diagnostics from 05/28/2018 was reviewed. IMPRESSION AND PLAN: 1. Right antecubital area cellulitis versus possible loculated abscess with soft tissue swelling and subcutaneous fat stranding and subcutaneous fluid in the antecubital fossa. 2. Deconditioning. 3. Right upper extremity above the elbow right basilic vein superficial thrombophlebitis with associated edema. 4. Hypertension. 5. History of right breast carcinoma. 6. History of chronic obstructive pulmonary disease. 7. Elevated erythrocyte sedimentation rate of 84. 8. Hyperglycemia with prediabetes. 9. Elevated C-reactive protein of greater than 52 and elevated high-sensibility C-reactive protein of greater than 15. 10. Constipation. 11. Hyperlipidemia. 12. Hypertriglyceridemia. PLAN: At this time, we are awaiting further surgical intervention regarding possible consideration for the right antecubital area surgical intervention. The patient is awaiting for ultrasound of the right antecubital area. The patient is currently followed by Surgery and Infectious Disease. CURRENT MEDICATIONS: Bactroban cream to the affected area three times a day, Brovana nebulizer treatment 15 mcg every 12 hours, Colace 100 mg three times a day, DuoNeb nebulizer four times a day, aspirin 81 mg daily, Lipitor 40 mg daily, Lovaza 2 g twice a day, Lovenox 40 mg subcu daily, morphine 1 mg IV every four hours p.r.n., Plavix 75 mg daily, Protonix 40 mg daily, Senokot 17.2 mg at bedtime, Zyvox 600 mg IV every 12 hours. Right upper extremity ultrasound pending. The patient has been ordered out of bed, physical therapy, ambulation therapy, gait training. In view of the above issues, we will await further recommendations by Infectious Disease and Surgery and awaiting further surgical intervention. The patient has been updated about her condition, diagnosis, treatment plan, treatment options and need for further surgical intervention and recommendations. Dictated and electronically signed, not read. Gregg Amezcua MD
--- NOTE | 2018-05-29 12:32 | CP.PCM.PN ---
Subjective - Date & Time of Evaluation Date of Evaluation: 05/28/18 Time of Evaluation: 11:25 - Subjective Subjective: No fevers, , not in distress, right arm is feeling much better. Objective - Vital Signs/Intake and Output Vital Signs (last 24 hours): Temp Pulse Resp BP Pulse Ox 98.6 F 71 18 121/71 96 05/28/18 16:00 05/28/18 16:00 05/28/18 16:00 05/28/18 16:00 05/28/18 16:00 - Medications Medications: Current Medications Albuterol/Ipratropium (Duoneb 3 Mg/0.5 Mg (3 Ml) Ud) 3 ml IH Q6H JANETTE PRN Reason: Protocol Last Admin: 05/28/18 20:12 Dose: 3 ml Arformoterol Tartrate (Brovana) 15 mcg IH [id number] JANETTE PRN Reason: Protocol Last Admin: 05/28/18 20:11 Dose: 15 mcg Aspirin (Ecotrin) 81 mg PO DAILY JANETTE PRN Reason: Protocol Last Admin: 05/28/18 09:38 Dose: 81 mg Atorvastatin Calcium (Lipitor) 40 mg PO DAILY JANETTE PRN Reason: Protocol Last Admin: 05/28/18 09:39 Dose: 40 mg Clopidogrel Bisulfate (Plavix) 75 mg PO DAILY JANETTE PRN Reason: Protocol Last Admin: 05/28/18 09:39 Dose: 75 mg Docusate Sodium (Colace) 100 mg PO TID JANETTE PRN Reason: Protocol Last Admin: 05/28/18 17:49 Dose: Not Given Enoxaparin Sodium (Lovenox) 40 mg SC 0600 JANETTE PRN Reason: Protocol Last Admin: 05/28/18 05:43 Dose: 40 mg Linezolid (Zyvox 600mg/300ml D5w) 600 mg in 300 mls @ 200 mls/hr IVPB Q12 JANETTE PRN Reason: Protocol Stop: 06/01/18 22:01 Last Admin: 05/28/18 22:17 Dose: 200 mls/hr Morphine Sulfate (Morphine) 1 mg IVP Q4H PRN; Protocol PRN Reason: Pain, moderate (4-7) Mupirocin (Bactroban Ointment) 0 gm TOP Q8H JANETTE PRN Reason: Protocol Last Admin: 05/28/18 17:49 Dose: 1 applic [id number] Ethyl Esters (Lovaza) 2 gm PO BID JANETTE PRN Reason: Protocol Last Admin: 05/28/18 17:51 Dose: 2 gm Pantoprazole Sodium (Protonix Ec Tab) 40 mg PO 0600 JANETTE PRN Reason: Protocol Last Admin: 05/28/18 05:43 Dose: 40 mg Sennosides (Senokot Tab) 17.2 mg PO HS JANETTE PRN Reason: Protocol Last Admin: 05/28/18 22:17 Dose: Not Given - Labs Labs: 05/28/18 10:10 05/28/18 10:10 - Constitutional Appears: Non-toxic, Chronically Ill - Head Exam Head Exam: NORMAL INSPECTION - Respiratory Exam Respiratory Exam: Decreased Breath Sounds. absent: Rales - Cardiovascular Exam Cardiovascular Exam: +S1, +S2 - GI/Abdominal Exam GI & Abdominal Exam: Soft. absent: Tenderness - Extremities Exam Additional comments: right arm with improved erythema, swelling and induration (although induration still present but area is decreased and it is softer and much less tender) Assessment and Plan - Assessment and Plan (Free Text) Plan: Assessment Probable superimposed skin and skin structure infection with basilic vein thrombophlebitis over the right arm anetecubital area, slowly improving COPD HTN history of TIA Plan continue Zyvox day 5 for at least 7-10 days; blood cx are negative; reviewed CT arm results continue warm compress - discussed with Dr. Amezcua - ultrasound does not show fluid collections will continue to monitor clinically
[2018-05-29] MEDS: Morphine 2 mg/ml ISec IVP PRN (18:09)
[2018-05-30] MEDS: Albuterol-Ipratrop 3 mg / 0.5 (3 ml) UD IH SCH ×4 (01:35→19:47)
[2018-05-30] MEDS: Mupirocin 2% Ointment 15 GM TUBE TOP SCH ×3 (02:02→17:35)
[2018-05-30] MEDS: Morphine 2 mg/ml ISec IVP PRN ×3 (04:44→19:31)
[2018-05-30] MEDS: Pantoprazole 40 mg EC Tab PO SCH (05:43)
[2018-05-30] MEDS: Enoxaparin 40 mg Syringe SC SCH (05:43)
[2018-05-30] MEDS: Arformoterol 15 mcg/2 ml Inh Sol IH SCH ×2 (07:19→19:47)
[2018-05-30] MEDS: Omega-3-Acid Ethyl Esters 1 GM Cap PO SCH ×2 (10:01→17:40)
[2018-05-30] MEDS: Linezolid 600 mg in D5W 300 ml 600 MG/300 ML BAG IVPB SCH ×2 (10:01→23:37)
[2018-05-30 14:52] LABS: HEMOGLOBIN 11.6 g/dL (12.0-16.0); MEAN CELL VOLUME 83.7 fl (80.0-105.0); MEAN CORPUSCULAR HEMOGLOBIN 27.8 pg (25.0-35.0); MEAN CORPUSCULAR HGB CONC 33.2 g/dl (31.0-37.0); MEAN PLATELET VOLUME 8.5 fl (7.0-11.0); RBC 4.17 10^6/uL (3.5-6.1); RED CELL DISTRIBUTION WIDTH 15.1 % (11.5-14.5); WHITE BLOOD COUNT 12.9 10^3/ul (4.5-11.0)
--- NOTE | 2018-05-30 14:59 | CP.PCM.PN ---
Subjective - Date & Time of Evaluation Date of Evaluation: 05/30/18 Time of Evaluation: 10:15 - Subjective Subjective: No fevers, not in distress, improving pain in the right arm. Objective - Vital Signs/Intake and Output Vital Signs (last 24 hours): Temp Pulse Resp BP Pulse Ox 97.1 F L 84 18 134/64 98 05/29/18 10:00 05/29/18 11:43 05/29/18 10:00 05/29/18 10:00 05/29/18 10:00 - Medications Medications: Current Medications Albuterol/Ipratropium (Duoneb 3 Mg/0.5 Mg (3 Ml) Ud) 3 ml IH Q6H JANETTE PRN Reason: Protocol Last Admin: 05/30/18 01:35 Dose: Not Given Arformoterol Tartrate (Brovana) 15 mcg IH [id number] JANETTE PRN Reason: Protocol Last Admin: 05/29/18 19:27 Dose: Not Given Aspirin (Ecotrin) 81 mg PO 0800 JANETTE PRN Reason: Protocol Last Admin: 05/29/18 08:29 Dose: 81 mg Atorvastatin Calcium (Lipitor) 40 mg PO DAILY JANETTE PRN Reason: Protocol Last Admin: 05/29/18 09:13 Dose: 40 mg Clopidogrel Bisulfate (Plavix) 75 mg PO DAILY JANETTE PRN Reason: Protocol Last Admin: 05/29/18 09:14 Dose: 75 mg Docusate Sodium (Colace) 100 mg PO TID JANETTE PRN Reason: Protocol Last Admin: 05/29/18 17:08 Dose: Not Given Enoxaparin Sodium (Lovenox) 40 mg SC 0600 JANETTE PRN Reason: Protocol Last Admin: 05/30/18 05:43 Dose: 40 mg Linezolid (Zyvox 600mg/300ml D5w) 600 mg in 300 mls @ 200 mls/hr IVPB Q12 JANETTE PRN Reason: Protocol Stop: 06/01/18 22:01 Last Admin: 05/29/18 21:23 Dose: 200 mls/hr Morphine Sulfate (Morphine) 1 mg IVP Q4H PRN; Protocol PRN Reason: Pain, moderate (4-7) Last Admin: 05/30/18 04:44 Dose: 1 mg Mupirocin (Bactroban Ointment) 0 gm TOP Q8H JANETTE PRN Reason: Protocol Last Admin: 05/30/18 02:02 Dose: Not Given [id number] Ethyl Esters (Lovaza) 2 gm PO BID JANETTE PRN Reason: Protocol Last Admin: 05/29/18 17:08 Dose: 2 gm Pantoprazole Sodium (Protonix Ec Tab) 40 mg PO 0600 JANETTE PRN Reason: Protocol Last Admin: 05/30/18 05:43 Dose: 40 mg Sennosides (Senokot Tab) 17.2 mg PO HS JANETTE PRN Reason: Protocol Last Admin: 05/29/18 21:33 Dose: Not Given - Labs Labs: 05/28/18 10:10 05/28/18 10:10 - Constitutional Appears: Non-toxic, Chronically Ill - Head Exam Head Exam: NORMAL INSPECTION - Respiratory Exam Respiratory Exam: Decreased Breath Sounds - Cardiovascular Exam Cardiovascular Exam: +S1, +S2 - GI/Abdominal Exam GI & Abdominal Exam: Soft. absent: Tenderness - Extremities Exam Additional comments: improving swelling and induration in the left arm Assessment and Plan - Assessment and Plan (Free Text) Plan: Assessment Probable superimposed skin and skin structure infection with basilic vein thrombophlebitis over the right arm anetecubital area, slowly improving COPD HTN history of TIA Plan continue Zyvox day 6 for at least 7-10 days; blood cx are negative; reviewed CT arm results continue warm compress - discussed with Dr. Amezcua - ultrasound does not show fluid collections will continue to monitor clinically
--- NOTE | 2018-05-30 16:41 | CP.PCM.PN ---
<JoshJen umana - Last Filed: 05/30/18 22:36> Subjective - Date & Time of Evaluation Date of Evaluation: 05/30/18 Time of Evaluation: 16:31 - Subjective Subjective: General Surgery Progress note for Dr. Queen Patient seen and examined today at bedside. Patient has no complaints about her arm and states that she is more concerned about her back pain from the bed in her room. Surgical team was notified by nursing via Dr. Amezcua this afternoon that pt had a fever of 100.7 last night. Patient denies N/V, F/C. Objective - Vital Signs/Intake and Output Vital Signs (last 24 hours): Temp Pulse Resp BP Pulse Ox 97.1 F L 84 18 134/64 98 05/29/18 10:00 05/29/18 11:43 05/29/18 10:00 05/29/18 10:00 05/29/18 10:00 - Medications Medications: Current Medications Albuterol/Ipratropium (Duoneb 3 Mg/0.5 Mg (3 Ml) Ud) 3 ml IH Q6H JANETTE PRN Reason: Protocol Last Admin: 05/30/18 13:31 Dose: 3 ml Arformoterol Tartrate (Brovana) 15 mcg IH [id number] JANETTE PRN Reason: Protocol Last Admin: 05/30/18 07:19 Dose: 15 mcg Aspirin (Ecotrin) 81 mg PO 0800 JANETTE PRN Reason: Protocol Last Admin: 05/30/18 08:36 Dose: 81 mg Atorvastatin Calcium (Lipitor) 40 mg PO DAILY JANETTE PRN Reason: Protocol Last Admin: 05/30/18 10:00 Dose: 40 mg Clopidogrel Bisulfate (Plavix) 75 mg PO DAILY JANETTE PRN Reason: Protocol Last Admin: 05/30/18 10:01 Dose: 75 mg Docusate Sodium (Colace) 100 mg PO TID JANETTE PRN Reason: Protocol Last Admin: 05/30/18 15:01 Dose: Not Given Enoxaparin Sodium (Lovenox) 40 mg SC 0600 JANETTE PRN Reason: Protocol Last Admin: 05/30/18 05:43 Dose: 40 mg Linezolid (Zyvox 600mg/300ml D5w) 600 mg in 300 mls @ 200 mls/hr IVPB Q12 JANETTE PRN Reason: Protocol Stop: 06/01/18 22:01 Last Admin: 05/30/18 10:01 Dose: 200 mls/hr Morphine Sulfate (Morphine) 1 mg IVP Q4H PRN; Protocol PRN Reason: Pain, moderate (4-7) Last Admin: 05/30/18 11:59 Dose: 1 mg Mupirocin (Bactroban Ointment) 0 gm TOP Q8H JANETTE PRN Reason: Protocol Last Admin: 05/30/18 09:58 Dose: 1 applic [id number] Ethyl Esters (Lovaza) 2 gm PO BID JANETTE PRN Reason: Protocol Last Admin: 05/30/18 10:01 Dose: 2 gm Ondansetron HCl (Zofran Inj) 4 mg IVP Q4H PRN PRN Reason: Nausea/Vomiting Pantoprazole Sodium (Protonix Ec Tab) 40 mg PO 0600 JANETTE PRN Reason: Protocol Last Admin: 05/30/18 05:43 Dose: 40 mg Sennosides (Senokot Tab) 17.2 mg PO HS JANETTE PRN Reason: Protocol Last Admin: 05/29/18 21:33 Dose: Not Given - Labs Labs: 05/30/18 14:43 05/28/18 10:10 - Constitutional Appears: Well, Non-toxic, No Acute Distress - Head Exam Head Exam: ATRAUMATIC, NORMOCEPHALIC - ENT Exam ENT Exam: Mucous Membranes Moist - Respiratory Exam Respiratory Exam: NORMAL BREATHING PATTERN - GI/Abdominal Exam GI & Abdominal Exam: Soft. absent: Tenderness - Extremities Exam Additional comments: right antecubital fossa inflammation improving, mild tenedrness to palpation of hardened area, no fluctuance or signs of worsening infection - Psychiatric Exam Psychiatric exam: Normal Affect, Normal Mood - Skin Skin Exam: Dry, Erythema, Intact, Warm Additional comments: erythema in right antecubital fossa improving Assessment and Plan - Assessment and Plan (Free Text) Assessment: 82 yr old female with Right antecubital fossa thrombophlebitis Plan: -WBC count 12.9 from 7.6, fever of 100.7 overnight - hold ASA plavix and lovenox -will order 10 units of platelets to counteract plavix effect -will plan for surgical I & D Thursday -encourage ambulation and working with PT to improve back pain -discussed recs with Dr. alison Fischer, PGY 1 <Tae Queen - Last Filed: 05/31/18 08:42> Objective - Vital Signs/Intake and Output Vital Signs (last 24 hours): Temp Pulse Resp BP Pulse Ox 100.7 F H 83 19 135/72 98 05/30/18 14:00 05/30/18 10:00 05/30/18 14:00 05/30/18 14:00 05/30/18 14:00 - Medications Medications: Current Medications Acetaminophen (Tylenol 325mg Tab) 650 mg PO Q6 PRN PRN Reason: TEMP>=99.5F Last Admin: 05/30/18 23:36 Dose: 650 mg Acetaminophen (Tylenol 650 Mg Supp) 650 mg RC Q6H PRN PRN Reason: TEMP>=99.5F Albuterol/Ipratropium (Duoneb 3 Mg/0.5 Mg (3 Ml) Ud) 3 ml IH Q6H JANETTE PRN Reason: Protocol Last Admin: 05/31/18 07:17 Dose: Not Given Arformoterol Tartrate (Brovana) 15 mcg IH [id number] JANETTE PRN Reason: Protocol Last Admin: 05/31/18 07:17 Dose: Not Given Aspirin (Ecotrin) 81 mg PO 0800 JANETTE PRN Reason: Protocol Last Admin: 05/30/18 08:36 Dose: 81 mg Clopidogrel Bisulfate (Plavix) 75 mg PO DAILY JANETTE PRN Reason: Protocol Last Admin: 05/30/18 10:01 Dose: 75 mg Docusate Sodium (Colace) 100 mg PO TID JANETTE PRN Reason: Protocol Last Admin: 05/30/18 17:35 Dose: Not Given Enoxaparin Sodium (Lovenox) 40 mg SC 0600 JANETTE PRN Reason: Protocol Last Admin: 05/30/18 05:43 Dose: 40 mg Linezolid (Zyvox 600mg/300ml D5w) 600 mg in 300 mls @ 200 mls/hr IVPB Q12 JANETTE PRN Reason: Protocol Stop: 06/01/18 22:01 Last Admin: 05/30/18 23:37 Dose: 200 mls/hr Lidocaine (Lidoderm) 1 ea TD DAILY JANETTE Last Admin: 05/30/18 23:35 Dose: 1 ea Morphine Sulfate (Morphine) 2 mg IVP Q4H PRN; Protocol PRN Reason: Pain, moderate (4-7) Last Admin: 05/31/18 02:38 Dose: 2 mg Mupirocin (Bactroban Ointment) 0 gm TOP Q8H JANETTE PRN Reason: Protocol Last Admin: 05/31/18 02:26 Dose: Not Given Knnol-7-Eysk Ethyl Esters (Lovaza) 2 gm PO BID JANETTE PRN Reason: Protocol Last Admin: 05/30/18 17:40 Dose: 2 gm Ondansetron HCl (Zofran Inj) 4 mg IVP Q4H PRN PRN Reason: Nausea/Vomiting Last Admin: 05/31/18 02:38 Dose: 4 mg Pantoprazole Sodium (Protonix Ec Tab) 40 mg PO 0600 JANETTE PRN Reason: Protocol Last Admin: 05/31/18 06:10 Dose: 40 mg Sennosides (Senokot Tab) 17.2 mg PO HS JANETTE PRN Reason: Protocol Last Admin: 05/30/18 23:36 Dose: 17.2 mg Tizanidine HCl (Zanaflex) 4 mg PO TID JANETTE Last Admin: 05/30/18 23:39 Dose: 4 mg - Labs Labs: 05/30/18 14:43 05/28/18 10:10 Assessment and Plan - Assessment and Plan (Free Text) Assessment: Dx R Basilic vein thrombophlebitis(Resolving) Temp elevation 100.7F @ 1400(Not charted initially) WBC 12.9 Will plan I & D Thursday post d/c ASA/Plavix(Platelet Tx Preop)/Lovenox Will get temps q 6hours(Charted) Nico Queen MD FACS
[2018-05-30 17:00] VITALS: PULSE 83
[2018-05-30 18:58] VITALS: BP 135/72; RESP 19; O2SAT 98
[2018-05-30] MEDS ORDERED: Morphine 2 mg/ml ISec IVP PRN (20:10)
[2018-05-30] MEDS: Lidocaine 5% Patch TD SCH (23:35)
--- NOTE | 2018-05-30 23:47 | PN ---
DATE: 05/30/2018 SUBJECTIVE: The patient is seen today in room 322, bed 1. The patient is seen lying in the bed complaining of severe low back pain radiating down to the left hip and left thigh. The patient received morphine earlier, but refuses to take any further dose because of the nausea, but at that time, the patient was ordered Zofran, but the patient has been refusing to take that also. During the day today, the patient spiked a fever of 100.7. Heart rate is 83, 84. Blood pressure 135/72, 124/65. Respiration 18 to 19. O2 sat 98% to 99%. The patient is seen lying in the bed complaining of severe low back pain, 810. The patient states that her muscles are in spasm in the back area and the left hip area. The patient's motor strength is 5/5 in upper and lower extremity. The patient refuses to ambulate. PHYSICAL EXAMINATION: VITAL SIGNS: T-max is 100.7, heart rate 83, blood pressure 135/72, respiration 19, O2 sat 98%. HEENT: Head examination normocephalic, atraumatic. HEENT examination shows pinkish conjunctivae. Dry oral mucosa. No neck rigidity. CHEST: Kyphosis. LUNGS: Shows no rales, crackles or wheezing. CARDIOVASCULAR: S1 and S2, regular rhythm. Questionable soft systolic murmur, left sternal border, right second intercostal space, left second intercostal space. ABDOMEN: Soft. Positive bowel sound. GENITALIA: Female. RECTAL: Deferred. EXTREMITIES: Shows no pitting edema, no calf tenderness, no Perla's signs. Plantars are downward. DTRs are 2+. Motor strength is 5/5. The patient does have lumbar spine tenderness, left sciatic notch tenderness on examination. Sensory examination is grossly intact to touch and painful stimuli. DIAGNOSTICS: From 05/30/2018, WBC 12.9, hemoglobin and hematocrit 11.6 and 35, platelets 357. Lactic acid is 1.6. IMPRESSION AND PLAN: 1. Fever of 100.7. 2. Questionable and possible left-sided sciatica with left-sided low back pain. 3. Questionable and possible lumbar disc disease. 4. Leukocytosis. 5. Elevated erythrocyte sedimentation rate of 84. 6. Elevated C-reactive protein, high sensitivity C-reactive protein of greater than 15 and C-reactive protein of greater than 52. 7. Back pain, etiology undetermined. 8. Probably lumbar disc disease with left-sided lumbar radiculopathy. 9. Gait dysfunction. 10. Deconditioning. 11. Right antecubital area superimposed skin and skin structure infection, with possible loculated abscess, slow resolving. 12. Persistent right antecubital area swelling. 13. Right thrombosed basilic vein above the elbow. 14. Chronic obstructive pulmonary disease. 15. Hypertension. 16. Mild normocytic anemia. 17. Chronic obstructive pulmonary disease. 18. Constipation. 19. Hyperlipidemia. PLAN: At this time, the patient has been ordered a stat CPK for evaluation of possible rhabdomyolysis. Repeat CBC and CMP ordered. Blood cultures has been ordered for fever. Lumbar spine x-ray has been ordered. Consultation, Surgery and Infectious Disease. Procalcitonin level ordered. CURRENT MEDICATIONS: Bactroban ointment to the right antecubital area three times a day, Brovana nebulizer treatment 15 mcg twice a day, Colace 100 mg three times a day, DuoNeb nebulizer every 6 hours, aspirin 81 mg daily which is on hold for possible surgical intervention of the right antecubital area, Lidoderm 5% patch to the affected area of the lumbar spine, Lipitor 40 mg daily which will be held at this time because of back pain and spasms, Lovaza 2 g twice a day, Lovenox 40 mg subcu daily which is on hold, morphine increased to 2 mg IV every 4 p.r.n., Plavix 75 mg daily which is on hold, Protonix 40 mg daily for GI prophylaxis, Senokot 17.2 mg at bedtime, Tylenol 650 mg p.o. suppository every 6 p.r.n. The patient is started on Zanaflex 4 mg three times a day for back spasm and pain, Zofran 4 mg IV every 4 p.r.n., Zyvox 600 mg IV every 12. Ultrasound of the right antecubital area preliminary results were noted which shows right thrombosed basilic vein by elbow. The patient has been ordered out of bed to chair, physical therapy, occupational therapy. The patient will be ordered moist heating pad to the lumbar area. The patient has been updated about her condition, diagnosis, treatment plan, need for further diagnostic and therapeutic intervention discussed and explained to the patient. The patient has been advised to request pain medication and nausea medication for her symptoms. The patient updated about all the above details in layman's language. All questions and concerned answered. We are awaiting for the patient's CPK level, lumbar spine x-rays, etc. Dictated and electronically signed, not read. Gregg Amezcua MD
[2018-05-31] MEDS: Albuterol-Ipratrop 3 mg / 0.5 (3 ml) UD IH SCH ×3 (01:18→13:34)
[2018-05-31] MEDS: Mupirocin 2% Ointment 15 GM TUBE TOP SCH ×2 (02:26→10:00)
[2018-05-31] MEDS: Pantoprazole 40 mg EC Tab PO SCH (06:10)
[2018-05-31] MEDS: Arformoterol 15 mcg/2 ml Inh Sol IH SCH (07:17)
[2018-05-31 08:40] LABS: BASO # 0.03 K/mm3 (0.0-2.0); BASO % 0.3 % (0.0-3.0); EOS # 0.2 (0.0-0.7); EOS % 2.3 % (1.5-5.0); GRAN # 7.68 (1.4-6.5); GRAN % 75.3 % (50.0-68.0); HEMOGLOBIN 9.9 g/dL (12.0-16.0); LYMPH # 1.2 (1.2-3.4); LYMPH % 11.3 % (22.0-35.0); MEAN CELL VOLUME 82.7 fl (80.0-105.0); MEAN CORPUSCULAR HEMOGLOBIN 26.8 pg (25.0-35.0); MEAN CORPUSCULAR HGB CONC 32.4 g/dl (31.0-37.0); MEAN PLATELET VOLUME 8.7 fl (7.0-11.0); MONO # 1.1 (0.1-0.6); MONO % 10.8 % (1.0-6.0); RBC 3.7 10^6/uL (3.5-6.1); RED CELL DISTRIBUTION WIDTH 14.9 % (11.5-14.5); WHITE BLOOD COUNT 10.2 10^3/ul (4.5-11.0)
[2018-05-31 08:48] LABS: INR 1.48 (0.93-1.08); PARTIAL THROMBOPLASTIN TIME 30.6 Seconds (25.1-36.5); PROTHROMBIN TIME 17.1 SECONDS (9.4-12.5)
[2018-05-31 09:12] LABS: ALB/GLOB RATIO 0.9 (1.1-1.8); ALBUMIN 3.1 g/dL (3.0-4.8); CALCIUM 8.5 mg/dL (8.4-10.5)
--- NOTE | 2018-05-31 09:26 | RAD ---
Date of service: 05/31/2018 PROCEDURE: Radiographs of the Lumbar Spine. HISTORY: BACK PAIN COMPARISON: No prior. FINDINGS: BONES: Normal alignment. No listhesis. No fracture. DISC SPACES: Unremarkable. OTHER FINDINGS: None. IMPRESSION: Unremarkable radiographs of the lumbar spine.
[2018-05-31 09:59] VITALS: TEMP 98
[2018-05-31] MEDS: Linezolid 600 mg in D5W 300 ml 600 MG/300 ML BAG IVPB SCH (10:02)
[2018-05-31] MEDS: Omega-3-Acid Ethyl Esters 1 GM Cap PO SCH (10:03)
[2018-05-31] MEDS: Lidocaine 5% Patch TD SCH (10:03)
--- NOTE | 2018-05-31 10:53 | CP.PCM.PN ---
Subjective - Subjective Subjective: General Surgery Progress Note for: Dr. Queen Patient seen and examined today at bedside. Patient has no complaints about her arm and states that she is more concerned about her back pain from the bed in her room. Pt was febrile yesterday afternoon (100.7) but is currently afebrile (98) and is not complaining of any fevers, chills or night sweats, nausea, vomiting, diarrhea or constipation. She also denies any other acute complaints at this time. Objective - Vital Signs/Intake and Output Vital Signs (last 24 hours): Temp Pulse Resp BP Pulse Ox 98 F 83 19 135/72 98 05/31/18 09:58 05/30/18 10:00 05/30/18 14:00 05/30/18 14:00 05/30/18 14:00 - Medications Medications: Current Medications Acetaminophen (Tylenol 325mg Tab) 650 mg PO Q6 PRN PRN Reason: TEMP>=99.5F Last Admin: 05/30/18 23:36 Dose: 650 mg Acetaminophen (Tylenol 650 Mg Supp) 650 mg RC Q6H PRN PRN Reason: TEMP>=99.5F Albuterol/Ipratropium (Duoneb 3 Mg/0.5 Mg (3 Ml) Ud) 3 ml IH Q6H JANETTE PRN Reason: Protocol Last Admin: 05/31/18 07:17 Dose: Not Given Arformoterol Tartrate (Brovana) 15 mcg IH [id number] JANETTE PRN Reason: Protocol Last Admin: 05/31/18 07:17 Dose: Not Given Aspirin (Ecotrin) 81 mg PO 0800 JANETTE PRN Reason: Protocol Last Admin: 05/30/18 08:36 Dose: 81 mg Clopidogrel Bisulfate (Plavix) 75 mg PO DAILY JANETTE PRN Reason: Protocol Last Admin: 05/30/18 10:01 Dose: 75 mg Docusate Sodium (Colace) 100 mg PO TID JANETTE PRN Reason: Protocol Last Admin: 05/31/18 10:01 Dose: Not Given Enoxaparin Sodium (Lovenox) 40 mg SC 0600 JANETTE PRN Reason: Protocol Last Admin: 05/30/18 05:43 Dose: 40 mg Linezolid (Zyvox 600mg/300ml D5w) 600 mg in 300 mls @ 200 mls/hr IVPB Q12 JANETTE PRN Reason: Protocol Stop: 06/01/18 22:01 Last Admin: 05/31/18 10:02 Dose: 200 mls/hr Lidocaine (Lidoderm) 1 ea TD DAILY JANETTE Last Admin: 05/31/18 10:03 Dose: 1 ea Morphine Sulfate (Morphine) 2 mg IVP Q4H PRN; Protocol PRN Reason: Pain, moderate (4-7) Last Admin: 05/31/18 02:38 Dose: 2 mg Mupirocin (Bactroban Ointment) 0 gm TOP Q8H JANETTE PRN Reason: Protocol Last Admin: 05/31/18 10:00 Dose: Not Given Exozd-8-Oucd Ethyl Esters (Lovaza) 2 gm PO BID JANETTE PRN Reason: Protocol Last Admin: 05/31/18 10:03 Dose: 2 gm Ondansetron HCl (Zofran Inj) 4 mg IVP Q4H PRN PRN Reason: Nausea/Vomiting Last Admin: 05/31/18 02:38 Dose: 4 mg Pantoprazole Sodium (Protonix Ec Tab) 40 mg PO 0600 JANETTE PRN Reason: Protocol Last Admin: 05/31/18 06:10 Dose: 40 mg Sennosides (Senokot Tab) 17.2 mg PO HS JANETTE PRN Reason: Protocol Last Admin: 05/30/18 23:36 Dose: 17.2 mg Tizanidine HCl (Zanaflex) 4 mg PO TID [facility] Last Admin: 05/31/18 10:04 Dose: 4 mg - Labs Labs: 05/31/18 08:30 05/31/18 08:30 PT 17.1 SECONDS (9.4-12.5) H 05/31/18 08:30 INR 1.48 (0.93-1.08) H 05/31/18 08:30 APTT 30.6 Seconds (25.1-36.5) 05/31/18 08:30 - Constitutional Appears: Well, Non-toxic, No Acute Distress - Head Exam Head Exam: ATRAUMATIC, NORMOCEPHALIC - Eye Exam Eye Exam: EOMI, Normal appearance - Respiratory Exam Respiratory Exam: NORMAL BREATHING PATTERN. absent: Accessory Muscle Use, Respiratory Distress - Cardiovascular Exam Cardiovascular Exam: +S1, +S2 - GI/Abdominal Exam GI & Abdominal Exam: Soft, Normal Bowel Sounds. absent: Distended, Firm, Guarding, Rigid - Extremities Exam Additional comments: The right antecubital fossa has improving erythema, and is not tender or warm to the touch. - Neurological Exam Neurological Exam: Alert, Awake, Oriented x3 - Psychiatric Exam Psychiatric exam: Normal Affect, Normal Mood - Skin Skin Exam: Dry, Intact, Normal Color, Warm Assessment and Plan - Assessment and Plan (Free Text) Assessment: Pt is a 82yo F with Right antecubital fossa thrombophlebitis Plan: - OR Tomorrow for I/D & washout - NPO tonight at midnight - IVF - Hold Lovenox tomorrow AM - WBC count resolving, pt is afebrile - 1 order of platelets on hold for tomorrow - Pt will be type and screened today - F/u US of right extremity - f/u xray of lumbar spine - unremarkable lumbar spine xray - Further recs per Dr. Queen
[2018-05-31] MEDS ORDERED: Sodium Chloride 0.9% 250 ML IV STA (10:54)
[2018-05-31] MEDS ORDERED: Dexamethasone 10 MG in Sodium Chloride 0.9% 50 ML IV ONE (10:56)
[2018-05-31] MEDS ORDERED: Morphine 2 mg/ml ISec IVP PRN ×2 (11:00→11:19)
[2018-05-31] MEDS ORDERED: Sodium Chloride 0.9% 1,000 ML IV SCH (11:00)
--- NOTE | 2018-05-31 11:34 | CP.PCM.CON ---
Past Patient History - Infectious Disease Hx of Infectious Diseases: None - Tetanus Immunizations Tetanus Immunization: Unknown - Past Medical History & Family History Past Medical History?: Yes - Past Social History Smoking Status: Never Smoked - CARDIAC Hx Hypercholesterolemia: Yes - PULMONARY Hx Chronic Obstructive Pulmonary Disease (COPD): Yes - NEUROLOGICAL Hx Neurological Disorder: Yes Hx Transient Ischemic Attacks (TIA): Yes - HEENT Hx HEENT Problems: Yes Hx Deafness: Yes (hearing aid rt ear) - RENAL Hx Chronic Kidney Disease: No - ENDOCRINE/METABOLIC Hx Endocrine Disorders: No - HEMATOLOGICAL/ONCOLOGICAL Hx Blood Disorders: No Hx Cancer: Yes (right breast CA w/ lumpectomy) - INTEGUMENTARY Hx Dermatological Problems: No - MUSCULOSKELETAL/RHEUMATOLOGICAL Hx Musculoskeletal Disorders: No Hx Falls: No - GASTROINTESTINAL Hx Gastrointestinal Disorders: No - GENITOURINARY/GYNECOLOGICAL Hx Genitourinary Disorders: No - PSYCHIATRIC Hx Psychophysiologic Disorder: No - SURGICAL HISTORY Hx Surgeries: Yes Hx Hysterectomy: Yes Other/Comment: rt breast ca& lumpectomy - ANESTHESIA Hx Anesthesia: Yes Hx Anesthesia Reactions: No Meds Allergies/Adverse Reactions: Allergies Allergy/AdvReac Type Severity Reaction Status Date / Time iodine Allergy RASH Verified 05/27/18 19:59 Iodine and Iodide Containing Allergy RASH Verified 05/27/18 19:59 Produc - Medications Medications: Current Medications Acetaminophen (Tylenol 325mg Tab) 650 mg PO Q6 PRN PRN Reason: TEMP>=99.5F Last Admin: 05/30/18 23:36 Dose: 650 mg Acetaminophen (Tylenol 650 Mg Supp) 650 mg RC Q6H PRN PRN Reason: TEMP>=99.5F Albuterol/Ipratropium (Duoneb 3 Mg/0.5 Mg (3 Ml) Ud) 3 ml IH Q6H JANETTE PRN Reason: Protocol Last Admin: 05/31/18 07:17 Dose: Not Given Arformoterol Tartrate (Brovana) 15 mcg IH [id number] JANETTE PRN Reason: Protocol Last Admin: 05/31/18 07:17 Dose: Not Given Aspirin (Ecotrin) 81 mg PO 0800 JANETTE PRN Reason: Protocol Last Admin: 05/30/18 08:36 Dose: 81 mg Clopidogrel Bisulfate (Plavix) 75 mg PO DAILY JANETTE PRN Reason: Protocol Last Admin: 05/30/18 10:01 Dose: 75 mg Docusate Sodium (Colace) 100 mg PO TID JANETTE PRN Reason: Protocol Last Admin: 05/31/18 10:01 Dose: Not Given Enoxaparin Sodium (Lovenox) 40 mg SC 0600 [facility] PRN Reason: Protocol Last Admin: 05/30/18 05:43 Dose: 40 mg Linezolid (Zyvox 600mg/300ml D5w) 600 mg in 300 mls @ 200 mls/hr IVPB Q12 JANETTE PRN Reason: Protocol Stop: 06/01/18 22:01 Last Admin: 05/31/18 10:02 Dose: 200 mls/hr Sodium Chloride (Sodium Chloride 0.9%) 250 mls @ 250 mls/hr IV .Q1H STA Stop: 05/31/18 11:53 Sodium Chloride (Sodium Chloride 0.9%) 1,000 mls @ 80 mls/hr IV .[id number] [facility] Lidocaine (Lidoderm) 1 ea TD DAILY [facility] Last Admin: 05/31/18 10:03 Dose: 1 ea Morphine Sulfate (Morphine) 1 mg IVP Q8 PRN; Protocol PRN Reason: Pain, moderate (4-7) Mupirocin (Bactroban Ointment) 0 gm TOP Q8H JANETTE PRN Reason: Protocol Last Admin: 05/31/18 10:00 Dose: Not Given Uhyzi-8-Mwvw Ethyl Esters (Lovaza) 2 gm PO BID [facility] PRN Reason: Protocol Last Admin: 05/31/18 10:03 Dose: 2 gm Ondansetron HCl (Zofran Inj) 4 mg IVP Q4H PRN PRN Reason: Nausea/Vomiting Last Admin: 05/31/18 02:38 Dose: 4 mg Pantoprazole Sodium (Protonix Ec Tab) 40 mg PO 0600 [facility] PRN Reason: Protocol Last Admin: 05/31/18 06:10 Dose: 40 mg Sennosides (Senokot Tab) 17.2 mg PO HS [facility] PRN Reason: Protocol Last Admin: 05/30/18 23:36 Dose: 17.2 mg Tizanidine HCl (Zanaflex) 4 mg PO TID [facility] Last Admin: 05/31/18 10:04 Dose: 4 mg Results - Vital Signs Recent Vital Signs: Last Vital Signs Temp 98 F 05/31/18 09:58 Pulse 83 05/30/18 10:00 Resp 19 05/30/18 14:00 BP 135/72 05/30/18 14:00 Pulse Ox 98 05/30/18 14:00 - Labs Result Diagrams: 05/31/18 08:30 05/31/18 08:30 Labs: Laboratory Results - last 24 hr 05/30/18 05/30/18 05/30/18 14:43 14:43 14:43 WBC 12.9 H D RBC 4.17 Hgb 11.6 L Hct 34.9 L MCV 83.7 MCH 27.8 MCHC 33.2 RDW 15.1 H Plt Count 357 MPV 8.5 Gran % Lymph % (Auto) Hughes % (Auto) Eos % (Auto) Baso % (Auto) Gran # Lymph # (Auto) Hughes # (Auto) Eos # (Auto) Baso # (Auto) PT INR APTT Sodium Potassium Chloride Carbon Dioxide Anion Gap BUN Creatinine Est GFR ( Amer) Est GFR (Non-Af Amer) Random Glucose Lactic Acid 1.6 Calcium Total Bilirubin AST ALT Alkaline Phosphatase Total Creatine Kinase Total Protein Albumin Globulin Albumin/Globulin Ratio Procalcitonin 0.19 05/30/18 05/31/18 05/31/18 21:14 08:30 08:30 WBC 10.2 D RBC 3.70 Hgb 9.9 L Hct 30.6 L MCV 82.7 MCH 26.8 MCHC 32.4 RDW 14.9 H Plt Count 313 MPV 8.7 Gran % 75.3 H Lymph % (Auto) 11.3 L Hughes % (Auto) 10.8 H Eos % (Auto) 2.3 Baso % (Auto) 0.3 Gran # 7.68 H Lymph # (Auto) 1.2 Hughes # (Auto) 1.1 H Eos # (Auto) 0.2 Baso # (Auto) 0.03 PT INR APTT Sodium 133 Potassium 4.5 Chloride 95 L Carbon Dioxide 27 Anion Gap 15 BUN 15 Creatinine 1.3 H Est GFR ( Amer) 48 Est GFR (Non-Af Amer) 39 Random Glucose 126 H Lactic Acid Calcium 8.5 Total Bilirubin 0.6 AST 23 ALT 11 Alkaline Phosphatase 80 Total Creatine Kinase 37 Total Protein 6.4 Albumin 3.1 Globulin 3.3 Albumin/Globulin Ratio 0.9 L Procalcitonin 05/31/18 08:30 WBC RBC Hgb Hct MCV MCH MCHC RDW Plt Count MPV Gran % Lymph % (Auto) Hughes % (Auto) Eos % (Auto) Baso % (Auto) Gran # Lymph # (Auto) Hughes # (Auto) Eos # (Auto) Baso # (Auto) PT 17.1 H INR 1.48 H APTT 30.6 Sodium Potassium Chloride Carbon Dioxide Anion Gap BUN Creatinine Est GFR ( Amer) Est GFR (Non-Af Amer) Random Glucose Lactic Acid Calcium Total Bilirubin AST ALT Alkaline Phosphatase Total Creatine Kinase Total Protein Albumin Globulin Albumin/Globulin Ratio Procalcitonin
--- NOTE | 2018-05-31 14:47 | US ---
Date of service: 05/29/2018 PROCEDURE: Right upper Extremity nonvascular ultrasound HISTORY: R arm cellulitis, r/o collection COMPARISON: None TECHNIQUE: Standard protocol for this study/examination. FINDINGS: Thrombosed basilic vein at the site of suspected cellulitis/collection. IMPRESSION: No drainable collection. Basilic vein is thrombosed corresponding to the area of interest on physical examination.
--- NOTE | 2018-06-01 04:50 | DS ---
FINAL PROGRESS NOTE AND DISCHARGE SUMMARY Patient is transferred out of the TCU because of persistent left-sided back pain and decreasing hemoglobin and patient's poor response to the treatment for the above symptoms. Patient was seen and examined in room 322, bed one. Patient is still complaining of severe low back pain and lumbar area pain with radiation to the left hip and left thigh. Patient has difficulty sitting up from the lying position. Patient is complaining of difficulty walking. Patient is also complaining of constipation. PHYSICAL EXAMINATION: VITAL SIGNS: T-max 100.7 down to 98. There is no blood pressure, heart rate, or O2 sat documented for today's vitals. According to the patient's nurse, patient's blood pressure was noted to be low, 80 systolic. GENERAL: Patient is seen lying in the bed. HEENT: Head examination, normocephalic, atraumatic. HEENT examination shows dry oral mucosa. Pinkish pale conjunctivae. NECK: No neck rigidity. CHEST: Kyphosis. LUNGS: Shows no rales, crackles or wheezing. CARDIOVASCULAR: S1, S2, regular rhythm. ABDOMEN: Soft, slightly tympanic. Patient states that she is constipated since yesterday. GENITALIA: Female. RECTAL: Examination deferred. EXTREMITIES: Shows motor strength of the lower extremities 5/5. Plantars are downward. No foot drop noted. Positive lumbar spine tenderness noted on palpation and percussion. MUSCULOSKELETAL: Examination shows a body mass index of 21. Patient is able to sit up with assistance from the lying position. DIAGNOSTICS: From 05/31/2018, WBC 10.2, hemoglobin/hematocrit 9.9 and 30.6, platelet 313. Granulocytes 75. PT/PTT 17.1 and 30.6. Chemistry shows sodium 133, potassium 4.5, chloride 95, CO2 27, anion gap 15, BUN 15. Creatinine has gone up to 1.3, glucose 126. LFTs are normal. CPK is 37. Procalcitonin level is 0.19. FINAL IMPRESSION, PLAN AND DISCHARGE DIAGNOSES: 1. Hypotension probably drug-induced and narcotic, morphine induced. 2. Low-grade fever of 100.7. 3. Persistent low back pain with left-sided radiation possibly left sciatica versus lumbar disk disease versus lumbar radiculopathy. 4. Acute kidney injury. 5. Leukocytosis with granulocytosis with elevated erythrocyte sedimentation rate of greater than 80. 6. Normocytic anemia with decreasing hemoglobin/hematocrit. 7. Mild coagulopathy. 8. Elevated cardiac C-reactive protein of greater than 45 and elevated high sensitivity C-reactive protein of greater than 15. 9. Right antecubital area cellulitis versus questionable clinical abscess extremely slow resolving with right antecubital area pain. 10. Right basilic vein thrombosis. 11. Questionable constipation. 12. Questionable abdominal distention. 13. Questionable urinary retention. 14. History of chronic obstructive pulmonary disease. 15. History of right breast carcinoma. 16. History of transient ischemic disease. 17. Hyperlipidemia. 18. History of hypertension. 19. Hypercholesteremia, hypertriglyceridemia. Plan at this time, patient will be transferred off the TCU to Med-Surg or remote telemetry for management of hypotension, anemia, back pain and right antecubital area cellulitis versus questionable abscess. Patient has been ordered repeat labs. Gastroenterology consultation, Neurology consultation has been requested. Patient is already been seen by Surgery and Infectious Disease. CURRENT MEDICATIONS: Bactroban cream to the affected area, to the right antecubital area; Brovana 15 mcg every 12; Colace 100 mg three times a day. Patient is also being given a dose of Decadron 10 mg stat. Decadron 10 mg stat has been ordered IV x1. Patient is on DuoNeb nebulizer every 6 hours; Ecotrin 81 mg daily, which is on hold by Surgery; Lidoderm 5% patch to the lumbar spine area; Lovaza 2 g twice a day; Lovenox 640 mg daily, which is also on hold; morphine adjusted to 1 mg IV every 8 hours p.r.n. to ovoid hypotension and sedation; Protonix 40 mg daily; Senokot 17.2 mg at bedtime. Patient is given a bolus of normal saline 250 mL and then the patient will be started on 0.9 normal saline at 80 mL an hour; Tylenol 650 mg p.o. suppository every 6 p.r.n.; Zanaflex 4 mg three times a day; Zofran 4 mg IV every 4 p.r.n.; Zyvox 600 mg IV every 12. Patient will also be ordered an MRI of the lumbar spine without contrast. CT abdomen and pelvis with p.o. contrast only will be ordered. GI evaluation will be requested for evaluation of anemia and decreasing hemoglobin. At present, the patient will be transferred to remote telemetry out of TCU. Patient has been updated about her condition, diagnosis, test results, recommendation by all the physicians involved in the care of the patient, were reinforced. Patient was explained all the details in layman's language. Patient will be followed up later with above diagnostic therapeutic interventions when available and recommendation by Gastroenterology, Neurology etc. Dictated and electronically signed, not read. Gregg Amezcua MD
== END 2018-05-31 12:14 | disposition short-term general hospital (02) | DRG 300 ==
LOC: TRCU 19:11
PROVIDERS: ADMIT Internal Medicine; ATTEND Internal Medicine
PROC: F07Z9FZ Gait Training/Functional Ambulation Treatment using Assistive, Adaptive, Supportive or Protective Equipment (ICD-10-PCS; principal; 2018-05-28)
PROC: F07M6ZZ Therapeutic Exercise Treatment of Musculoskeletal System - Whole Body (ICD-10-PCS; 2018-05-28)
DX: I80.8 Phlebitis and thrombophlebitis of other sites (principal); I82.611 Acute embolism and thrombosis of superficial veins of right upper extremity; D68.9 Coagulation defect, unspecified; L03.113 Cellulitis of right upper limb; N17.9 Acute kidney failure, unspecified; J44.9 Chronic obstructive pulmonary disease, unspecified; D64.9 Anemia, unspecified; E78.00 Pure hypercholesterolemia, unspecified; E78.1 Pure hyperglyceridemia; E78.5 Hyperlipidemia, unspecified; H91.90 Unspecified hearing loss, unspecified ear; I10 Essential (primary) hypertension; K59.00 Constipation, unspecified; M51.9 Unspecified thoracic, thoracolumbar and lumbosacral intervertebral disc disorder; M54.16 Radiculopathy, lumbar region; R73.03 Prediabetes; T40.2X5A Adverse effect of other opioids, initial encounter; Z80.9 Family history of malignant neoplasm, unspecified; Z85.3 Personal history of malignant neoplasm of breast; Z86.73 Personal history of transient ischemic attack (TIA), and cerebral infarction without residual deficits; Z90.710 Acquired absence of both cervix and uterus; Z88.8 Allergy status to other drugs, medicaments and biological substances

== ENCOUNTER 2018-05-31 12:14 | Inpatient (IN) | payer MEDICARE, OTHER ==
[2018-05-31 12:18] VITALS: BMI 21.2
--- NOTE | 2018-05-31 12:49 | ED PDOC ---
Arrival/HPI - History of Present Illness Time/Duration: < week Symptom Course: Intermittent Activities at Onset: Light Context: Other (hospital) <Ila Esparza - Last Filed: 05/31/18 13:50> <Ricky Jacob - Last Filed: 05/31/18 17:10> - General Time Seen by Provider: 05/31/18 12:18 - History of Present Illness Narrative History of Present Illness (Text): 05/31/18 12:57 This is a 82 year old female with PMH of COPD, prediabetes, TIA, HLD, and right breast cancer s/p lumpectomy presenting to the ED from [facility] for drop in hemoglobinand hypotension. Hg this morning was 9.9 and yesterday it was 11.6. BP is 98/54. Patient has been in the hospital since 05/24/18 for right arm antecubital swelling and back pain. Lumbar xray this morning was negative. Patient currently denies CP, SOB, fevers, confusion, nausea, vomiting, abdominal pain, hematemesis, hematochezia, urinary problems and chills. (Ila Esparza) Past Medical History - Provider Review Nursing Documentation Reviewed: Yes - Infectious Disease Hx of Infectious Diseases: None - Tetanus Immunization Tetanus Immunization: Unknown - Cardiac Hx Pacemaker: No - Pulmonary Hx Chronic Obstructive Pulmonary Disease (COPD): Yes - Neurological Hx Paralysis: No - HEENT Hx HEENT Disorder: Yes Hx Deafness: Yes (hearing aid rt ear) - Renal Hx Renal Disorder: No - Endocrine/Metabolic Hx Endocrine Disorders: No - Hematological/Oncological Hx Blood Transfusions: No - Integumentary Hx Dermatological Disorder: No - Musculoskeletal/Rheumatological Hx Musculoskeletal Disorders: No Hx Falls: No - Gastrointestinal Hx Gastrointestinal Disorders: No - Genitourinary/Gynecological Hx Genitourinary Disorders: No - Psychiatric Hx Psychophysiologic Disorder: No Hx Substance Use: No - Surgical History Hx Hysterectomy: Yes Other/Comment: rt breast ca& lumpectomy - Anesthesia Hx Anesthesia Reactions: No Hx Malignant Hyperthermia: No <Ila Esparza - Last Filed: 05/31/18 13:50> Family/Social History - Physician Review Nursing Documentation Reviewed: Yes Family/Social History: Unknown Family HX Smoking Status: Never Smoked Hx Alcohol Use: No Hx Substance Use: No <Ila Esparza - Last Filed: 05/31/18 13:50> Allergies/Home Meds <Ila Esparza - Last Filed: 05/31/18 13:50> <Ricky Jacob - Last Filed: 05/31/18 17:10> Allergies/Adverse Reactions: Allergies iodine Allergy (Verified 05/27/18 19:59) RASH Iodine and Iodide Containing Produc Allergy (Verified 05/27/18 19:59) RASH Home Medications: Home Meds Medication Instructions Recorded Confirmed Aspirin [Ecotrin] 81 mg PO DAILY 05/19/18 05/31/18 Clopidogrel [Plavix] 75 mg PO DAILY 05/19/18 05/31/18 amLODIPine [Norvasc] 5 mg PO DAILY 05/19/18 05/31/18 Review of Systems - Physician Review All systems were reviewed & negative as marked: Yes - Review of Systems Constitutional: Normal. absent: Fevers Eyes: Normal ENT: Normal Respiratory: Normal. absent: SOB Cardiovascular: Normal. absent: Chest Pain Gastrointestinal: Normal. absent: Abdominal Pain Genitourinary Female: Normal Musculoskeletal: Back Pain. absent: Joint Swelling, Myalgias Neurological: Normal. absent: Headache Hemo/Lymphatic: Normal <Ila Esparza - Last Filed: 05/31/18 13:50> Physical Exam Vital Signs Reviewed: Yes Temperature: Afebrile Blood Pressure: Hypotensive Pulse: Regular Respiratory Rate: Normal Appearance: Positive for: Well-Appearing, Non-Toxic, Comfortable Pain Distress: None Mental Status: Positive for: Alert and Oriented X 3 - Systems Exam Head: Present: Atraumatic, Normocephalic Pupils: Present: PERRL Extroacular Muscles: Present: EOMI Conjunctiva: Present: Normal Mouth: Present: Moist Mucous Membranes Neck: Present: Normal Range of Motion Respiratory/Chest: Present: Clear to Auscultation, Good Air Exchange. No: Respiratory Distress, Accessory Muscle Use Cardiovascular: Present: Regular Rate and Rhythm, Normal S1, S2. No: Murmurs Abdomen: No: Tenderness, Distention, Peritoneal Signs Back: Present: Other (tender to palpation along midline lumbar region, radiates towards right leg. negative straight leg raise test on right). No: Pain with Leg Raise, Decubitus Ulcer Upper Extremity: Present: Normal Inspection. No: Cyanosis, Edema Lower Extremity: Present: Normal Inspection. No: Edema Neurological: Present: Speech Normal, Motor Func Grossly Intact, Normal Sensory Function Skin: Present: Warm, Dry, Normal Color. No: Rashes Psychiatric: Present: Alert, Oriented x 3, Normal Insight, Normal Concentration <FaviandorothyIla - Last Filed: 05/31/18 13:50> Vital Signs Temp Pulse Resp BP Pulse Ox 05/31/18 17:06 58 L 18 115/58 L 96 05/31/18 14:51 59 L 16 118/63 05/31/18 14:20 60 16 122/59 L 96 05/31/18 13:05 53 L 16 102/44 L 96 05/31/18 12:31 98.0 F 54 L 18 98/54 L 99 Medical Decision Making <Ila Esparza - Last Filed: 05/31/18 13:50> - RAD Interpretation Shift Supervisor Melting: Radiologist <Ricky Jacob - Last Filed: 05/31/18 17:10> ED Course and Treatment: 05/31/18 13:02 Impression: This is a 82 year old female with PMH of COPD, prediabetes, TIA, HLD , and right breast cancer s/p lumpectomy presenting to the ED from [facility] for drop in hemoglobin. Differential not limited to: Lower GI bleed vs iron deficiency vs. thyroid abnormality vs. lumbar radiculopathy vs spinal stenosis Plan: Will check FOBT, LDH, TSH, iron studies and CT abdomen. Progress: 05/31/18 13:49 FOBT is negative. Control is positive. Lot number: [id number] Exp: 06/2020 (Ila Esparza) 05/31/18 14:08 patient was sent to the ED for transient hypotension, low back pain, and acute anemia. will get Ct without contrast to eval for abdominal fluid collection or possible retroperitoneal bleed. Patient has an allergy to IV contrast so it was deferred. Po contrast study cancelled as not to delay CT. 05/31/18 14:52 patient was was admitted to service of dr. villeda. patient to be admitted for transietn hypotension while at [facility]. patient was secondarily found to have low Hb and Ct was done to rule out possible retroperitoneal bleed or abdominal fluid collection. Sepsis workup initiated and patient to be admitted for further evaluation and management. 05/31/18 17:08 patient pain pattern is consistent with current lumbar Ct findings of L-HNP. ddx including but not limited to spinal epidural abscess however the suspicion remains low at this time. MRI has been discussed with the admitting resident working with Dr. Villeda but I will defer further imaging to inpt team. (Ricky Jacob) - Lab Interpretations Lab Results: Lab Results 05/31/18 13:00: Iron 23 L, TIBC 251 L, % Saturation 9 L 05/31/18 13:00: TSH 3rd Generation 1.82 05/31/18 13:00: Lactate Dehydrogenase 388 - RAD Interpretation Narrative RAD Interpretations (Text): 05/31/18 15:00 Chest X-Ray reviewed by radiologist, shows no active disease. CT of head reviewed by radiologist, shows no acute intra-abdominal findings. CT of Abdomen/Pelvis reviewed by radiologist, shows no acute findings. (Ricky Jacob) Radiology Orders: 05/31/18 13:21 CHEST PORTABLE [RAD] Stat 05/31/18 13:23 LUMBAR SPINE W/O CONTRAST [CT] Stat - EKG Interpretation EKG Interpretation (Text): 05/31/18 14:30 ekg my read: 1425: sinus rhythm at 61 bpm, nml qrs, nml axis, no acute sttw abn (Ricky Jacob) - Medication Orders Current Medication Orders: Albuterol/Ipratropium (Duoneb 3 Mg/0.5 Mg (3 Ml) Ud) 3 ml IH Q6H JANETTE Last Admin: 05/31/18 17:02 Dose: 3 ml Arformoterol Tartrate (Brovana) 15 mcg IH [id number] JANETTE Aspirin (Ecotrin) 81 mg PO DAILY JANETTE Atorvastatin Calcium (Lipitor) 40 mg PO DAILY JANETTE Cyclobenzaprine HCl (Flexeril) 5 mg PO TID JANETTE Docusate Sodium (Colace) 100 mg PO TID JANETTE Heparin Sodium (Porcine) (Heparin) 5,000 units SC Q8 JANETTE PRN Reason: Protocol Last Admin: 05/31/18 17:00 Dose: 5,000 units MAR aPTT Document 05/31/18 17:00 DEANN (Rec: 05/31/18 17:02 DEANN [id number]) aPTT aPTT (secs) 34.2 Subcutaneous Administrations Document 05/31/18 17:00 DEANN (Rec: 05/31/18 17:02 DEANN [id number]) Injection Site MAR Injection Site Left Arm Charges for Administration # of Subcutaneous Administrations 1 Sodium Chloride (Sodium Chloride 0.9%) 1,000 mls @ 80 mls/hr IV .[id number] JANETTE Last Admin: 05/31/18 17:03 Dose: 80 mls/hr eMAR Start Stop Document 05/31/18 17:03 DEANN (Rec: 05/31/18 17:03 DEANN [id number]) Intravenous Solution Start Date 05/31/18 Start Time 17:03 Linezolid (Zyvox 600mg/300ml D5w) 600 mg in 300 mls @ 200 mls/hr IVPB Q12 JANETTE PRN Reason: Protocol Stop: 05/31/18 23:29 Mupirocin (Bactroban Ointment) 0 gm TOP Q8H JANETTE Cahss-7-Oowu Ethyl Esters (Lovaza) 2 gm PO BID JANETTE Pantoprazole Sodium (Protonix Ec Tab) 40 mg PO 0600 JANETTE Sennosides (Senokot Tab) 17.2 mg PO HS JANETTE Tramadol HCl (Ultram) 50 mg PO Q12 PRN PRN Reason: Pain, severe (8-10) - PA / .NET DEVELOPER / Resident Statement / has reviewed & agrees with the documentation as recorded. / has examined the patient and agrees with the treatment plan. <Ila Esparza - Last Filed: 05/31/18 13:50> Disposition/Present on Arrival - Present on Arrival History of DVT/PE: No History of Uncontrolled Diabetes: No Urinary Catheter: No History Surgical Site Infection Following: None <Ila Esparza - Last Filed: 05/31/18 13:50> - Present on Arrival Any Indicators Present on Arrival: No - Disposition Have Diagnosis and Disposition been Completed?: Yes Disposition Time: 14:55 Patient Plan: Admission <Ricky Jacob - Last Filed: 05/31/18 17:10> - Disposition Diagnosis: Transient hypotension, Anemia, Radiculopathy Disposition: HOSPITALIZED Patient Problems: Current Active Problems Problem Status Onset Transient hypotension Acute Anemia Acute Radiculopathy Acute Condition: FAIR
[2018-05-31 13:20] LABS: IRON 23 ug/dL (45-180)
[2018-05-31 13:30] LABS: % IRON SATURATION 9 % (20-55); TOTAL IRON BINDING CAPACITY 251 ug/dL (265-497)
[2018-05-31] MEDS ORDERED: Iodixanol 320 MG/ML 100 ML BOTTLE IV ONE (13:37)
[2018-05-31] MEDS ORDERED: Barium Sulfate Susp 2.1% w/v, 2.0% w/w 450 mL Bottle PO ONE (14:01)
--- NOTE | 2018-05-31 14:08 | RAD ---
Date of service: 05/31/2018 HISTORY: chest pain COMPARISON: 05/24/2018 FINDINGS: LUNGS: No active pulmonary disease. PLEURA: No significant pleural effusion identified, no pneumothorax apparent. CARDIOVASCULAR: Normal. OSSEOUS STRUCTURES: No significant abnormalities. VISUALIZED UPPER ABDOMEN: Normal. OTHER FINDINGS: None. IMPRESSION: No active disease.
[2018-05-31 14:29] LABS: BASO # 0.02 K/mm3 (0.0-2.0); BASO % 0.1 % (0.0-3.0); EOS # 0.1 (0.0-0.7); EOS % 0.7 % (1.5-5.0); GRAN # 12.47 (1.4-6.5); HEMOGLOBIN 10.3 g/dL (12.0-16.0); LYMPH # 0.6 (1.2-3.4); LYMPH % 4.3 % (22.0-35.0); MEAN CELL VOLUME 82.4 fl (80.0-105.0); MEAN CORPUSCULAR HEMOGLOBIN 27.5 pg (25.0-35.0); MEAN CORPUSCULAR HGB CONC 33.3 g/dl (31.0-37.0); MEAN PLATELET VOLUME 8.5 fl (7.0-11.0); MONO # 0.4 (0.1-0.6); MONO % 2.9 % (1.0-6.0); PLATELET COUNT 326 10^3/uL (120.0-450.0); RBC 3.75 10^6/uL (3.5-6.1); RED CELL DISTRIBUTION WIDTH 14.8 % (11.5-14.5); WHITE BLOOD COUNT 13.6 10^3/ul (4.5-11.0)
[2018-05-31 14:39] LABS: INR 1.44 (0.93-1.08); PARTIAL THROMBOPLASTIN TIME 34.2 Seconds (25.1-36.5); PROTHROMBIN TIME 16.5 SECONDS (9.4-12.5)
--- NOTE | 2018-05-31 14:45 | CT ---
Date of service: 05/31/2018 PROCEDURE: CT HEAD WITHOUT CONTRAST. HISTORY: drowsy COMPARISON: None available. TECHNIQUE: Axial computed tomography images were obtained through the head/brain without intravenous contrast. Radiation dose: Total exam DLP = 933 mGy-cm. This CT exam was performed using one or more of the following dose reduction techniques: Automated exposure control, adjustment of the mA and/or kV according to patient size, and/or use of iterative reconstruction technique. FINDINGS: HEMORRHAGE: No intracranial hemorrhage. BRAIN: No mass effect or edema. No atrophy or chronic microvascular ischemic changes. VENTRICLES: Unremarkable. No hydrocephalus. CALVARIUM: Unremarkable. PARANASAL SINUSES: Unremarkable as visualized. No significant inflammatory changes. MASTOID AIR CELLS: Unremarkable as visualized. No inflammatory changes. OTHER FINDINGS: None. IMPRESSION: No acute findings
[2018-05-31 14:46] LABS: EOSINOPHIL 1 % (0.0-3.0); LYMPHOCYTE 4 % (22.0-35.0); MONOCYTE 2 % (1.0-6.0); NEUTROPHIL 93 % (50.0-70.0); PLATELET ESTIMATE NORMAL (NORMAL)
--- NOTE | 2018-05-31 14:50 | CT ---
Date of service: 05/31/2018 PROCEDURE: CT Abdomen and Pelvis without intravenous contrast HISTORY: back pain, anemia COMPARISON: None. TECHNIQUE: Without contrast.. Contrast dose: Radiation dose: Total exam DLP = 271 mGy-cm. This CT exam was performed using one or more of the following dose reduction techniques: Automated exposure control, adjustment of the mA and/or kV according to patient size, and/or use of iterative reconstruction technique. FINDINGS: LOWER THORAX: Unremarkable. LIVER: Unremarkable. No gross lesion or ductal dilatation. GALLBLADDER AND BILE DUCTS: Unremarkable. PANCREAS: Unremarkable. No gross lesion or ductal dilatation. SPLEEN: Unremarkable. ADRENALS: Unremarkable. No mass. KIDNEYS AND URETERS: Unremarkable. No hydronephrosis. No solid mass. VASCULATURE: Unremarkable. No aortic aneurysm. BOWEL: Unremarkable. No obstruction. No gross mural thickening. APPENDIX: Unremarkable. Normal appendix. PERITONEUM: Unremarkable. No free fluid. No free air. LYMPH NODES: Unremarkable. No enlarged lymph nodes. BLADDER: Unremarkable. REPRODUCTIVE: Unremarkable. BONES: No acute fracture. OTHER FINDINGS: None. IMPRESSION: No acute intra-abdominal findings
--- NOTE | 2018-05-31 14:50 | CP.PCM.CON ---
<JaredCain - Last Filed: 05/31/18 17:19> History of Present Illness - History of Present Illness History of Present Illness: General Surgery Consult Note For: Dr. Queen Pt is a 82 yo F with PMHx of COPD, TIA, HLD and right breast ca s/p lumpectomy who presented to the ED from TCU for due to low blood pressure. She started complaining of severe back pain last night and was given some pain killers and muscle relaxants. She also went for xray of the lumbar spine on 05/31 which was unremarkable for any acute pathologies of the spine. She states that she has never taken muscle relaxants before. Her Hgb yesterday was 11.6, and this morning was reported to be 9.9. Her BP was also measure to be 98/54. She was in the TCU due to a right antecubital thrombophlebitis which was going to be taken to the OR and aspirated and washed out. She currently denies any fevers, chills , night sweats, headaches, lightheadedness, vision changes, blurry vision, chest pain, SOB, abdominal pain, nausea, vomiting, hematemesis, hematochesia, dysuria, or hematuria, numbness, tingling, weakness. PMHx: TIA, COPD, HTN, HLD, R Breast cancer PSHx: right breast lumpectomy, hysterectomy ALL: iodine Social: prior cigarette smoking >60 years ago, ocassional ETOH, no illicit substances Review of Systems - Constitutional Constitutional: absent: Chills, Fever, Night Sweats, Weakness - EENT Eyes: absent: Blurred Vision, Change in Vision, Other Visual Disturbances - Cardiovascular Cardiovascular: absent: Chest Pain, Diaphoresis, Pain Radiating to Arm/Neck/Jaw , Lightheadedness, Palpitations - Respiratory Respiratory: absent: Cough, Hemoptysis, Wheezing - Gastrointestinal Gastrointestinal: absent: Abdominal Pain, Change in Bowel Habits, Hematochezia, Nausea, Vomiting - Genitourinary Genitourinary: absent: Dysuria, Hematuria - Musculoskeletal Musculoskeletal: Back Pain (States that it is bilateral back pain that is localized to the buttocks without radiation down to the legs.). absent: Muscle Weakness, Tingling - Neurological Neurological: absent: Dizziness, Numbness, Focal Weakness, Loss of Vision, Paresthesias, Radicular Pain, Tingling, Weakness Past Patient History - Infectious Disease Hx of Infectious Diseases: None - Tetanus Immunizations Tetanus Immunization: Unknown - Past Medical History & Family History Past Medical History?: Yes - Past Social History Smoking Status: Never Smoked - CARDIAC Hx Pacemaker: No - PULMONARY Hx Chronic Obstructive Pulmonary Disease (COPD): Yes - NEUROLOGICAL Hx Paralysis: No - HEENT Hx HEENT Problems: Yes Hx Deafness: Yes (hearing aid rt ear) - RENAL Hx Chronic Kidney Disease: No - ENDOCRINE/METABOLIC Hx Endocrine Disorders: No - HEMATOLOGICAL/ONCOLOGICAL Hx Blood Transfusions: No - INTEGUMENTARY Hx Dermatological Problems: No - MUSCULOSKELETAL/RHEUMATOLOGICAL Hx Musculoskeletal Disorders: No Hx Falls: No - GASTROINTESTINAL Hx Gastrointestinal Disorders: No - GENITOURINARY/GYNECOLOGICAL Hx Genitourinary Disorders: No - PSYCHIATRIC Hx Psychophysiologic Disorder: No Hx Substance Use: No - SURGICAL HISTORY Hx Hysterectomy: Yes Other/Comment: rt breast ca& lumpectomy - ANESTHESIA Hx Anesthesia Reactions: No Hx Malignant Hyperthermia: No Meds Allergies/Adverse Reactions: Allergies Allergy/AdvReac Type Severity Reaction Status Date / Time iodine Allergy RASH Verified 05/27/18 19:59 Iodine and Iodide Containing Allergy RASH Verified 05/27/18 19:59 Produc Physical Exam - Constitutional Appears: Well, Non-toxic, No Acute Distress - Head Exam Head Exam: ATRAUMATIC, NORMOCEPHALIC - Eye Exam Eye Exam: EOMI, Normal appearance Pupil Exam: NORMAL ACCOMODATION, PERRL - ENT Exam ENT Exam: Mucous Membranes Dry - Respiratory Exam Respiratory Exam: Clear to Auscultation Bilateral, NORMAL BREATHING PATTERN. absent: Accessory Muscle Use, Chest Wall Tenderness, Respiratory Distress - Cardiovascular Exam Cardiovascular Exam: REGULAR RHYTHM, +S1, +S2 - GI/Abdominal Exam GI & Abdominal Exam: Distended (mildly distended), Normal Bowel Sounds, Soft. absent: Firm, Guarding, Rigid, Tenderness - Neurological Exam Neurological exam: Alert, CN II-XII Intact, Normal Gait, Oriented x3 - Psychiatric Exam Psychiatric exam: Normal Affect, Normal Mood - Skin Skin Exam: Dry, Intact, Normal Color, Warm Results - Vital Signs Recent Vital Signs: Last Vital Signs Temp 98.0 F 05/31/18 12:31 Pulse 60 05/31/18 14:20 Resp 16 05/31/18 14:20 BP 122/59 L 05/31/18 14:20 Pulse Ox 96 05/31/18 14:20 - Labs Result Diagrams: 05/31/18 14:15 05/31/18 14:15 Labs: Laboratory Results - last 24 hr 05/31/18 05/31/18 14:15 14:15 WBC 13.6 H D RBC 3.75 Hgb 10.3 L Hct 30.9 L MCV 82.4 MCH 27.5 MCHC 33.3 RDW 14.8 H Plt Count 326 MPV 8.5 Gran % 92.0 H Lymph % (Auto) 4.3 L [place] % (Auto) 2.9 Eos % (Auto) 0.7 L Baso % (Auto) 0.1 Gran # 12.47 H Lymph # (Auto) 0.6 L [place] # (Auto) 0.4 Eos # (Auto) 0.1 Baso # (Auto) 0.02 BBK History Checked No verified bt Assessment & Plan - Assessment and Plan (Free Text) Assessment: Pt is a 82 yo F who presented with hypotension, but was consulted due to right antecubital thrombophlebitis. Plan: - F/u hypotension labs - F/u head CT - Showed no acute pathology - F/u lumbar spine CT - Showed a moderate bulge L4-5, with moderate facet arthropathy without stenosis - Tentative plan for OR Tomorrow for I/D & washout - NPO tonight at midnight - IVF - Hold Lovenox tomorrow AM - WBC count resolving, pt is afebrile - 1 order of platelets on hold for tomorrow - Pt type and screened - f/u xray of lumbar spine - unremarkable lumbar spine xray - Further recs per Dr. Queen - Date & Time Date: 05/31/18 Time: 16:16 <Tae Queen - Last Filed: 06/01/18 07:09> Meds - Medications Medications: Current Medications Albuterol/Ipratropium (Duoneb 3 Mg/0.5 Mg (3 Ml) Ud) 3 ml IH Q6H [facility] Last Admin: 06/01/18 02:45 Dose: Not Given Arformoterol Tartrate (Brovana) 15 mcg IH [id number] [facility] Last Admin: 05/31/18 20:22 Dose: 15 mcg Atorvastatin Calcium (Lipitor) 40 mg PO DAILY [facility] Cyclobenzaprine HCl (Flexeril) 5 mg PO TID [facility] Last Admin: 05/31/18 18:16 Dose: 5 mg Docusate Sodium (Colace) 100 mg PO TID [facility] Last Admin: 05/31/18 18:14 Dose: 100 mg Heparin Sodium (Porcine) (Heparin) 5,000 units SC Q8 [facility] PRN Reason: Protocol Last Admin: 05/31/18 23:25 Dose: Not Given Sodium Chloride (Sodium Chloride 0.9%) 1,000 mls @ 80 mls/hr IV .[id number] [facility] Last Admin: 06/01/18 04:00 Dose: 80 mls/hr Mupirocin (Bactroban Ointment) 0 gm TOP Q8H [facility] Last Admin: 06/01/18 05:42 Dose: 1 applic [id number] Ethyl Esters (Lovaza) 2 gm PO BID [facility] Last Admin: 05/31/18 18:14 Dose: 2 gm Pantoprazole Sodium (Protonix Ec Tab) 40 mg PO 0600 [facility] Last Admin: 06/01/18 05:40 Dose: 40 mg Sennosides (Senokot Tab) 17.2 mg PO HS [facility] Last Admin: 05/31/18 22:03 Dose: 17.2 mg Tramadol HCl (Ultram) 50 mg PO Q12 PRN PRN Reason: Pain, severe (8-10) Last Admin: 06/01/18 00:43 Dose: 50 mg Results - Vital Signs Recent Vital Signs: Last Vital Signs Temp 97.0 F L 06/01/18 01:59 Pulse 61 06/01/18 02:00 Resp 20 06/01/18 01:59 BP 101/54 L 06/01/18 01:59 Pulse Ox 94 L 06/01/18 01:59 - Labs Result Diagrams: 05/31/18 14:15 05/31/18 14:15 Labs: Laboratory Results - last 24 hr 05/31/18 05/31/18 05/31/18 14:15 14:15 14:15 WBC 13.6 H D RBC 3.75 Hgb 10.3 L Hct 30.9 L MCV 82.4 MCH 27.5 MCHC 33.3 RDW 14.8 H Plt Count 326 MPV 8.5 Gran % 92.0 H Lymph % (Auto) 4.3 L [place] % (Auto) 2.9 Eos % (Auto) 0.7 L Baso % (Auto) 0.1 Gran # 12.47 H Lymph # (Auto) 0.6 L [place] # (Auto) 0.4 Eos # (Auto) 0.1 Baso # (Auto) 0.02 Neutrophils % (Manual) 93 H Lymphocytes % (Manual) 4 L Monocytes % (Manual) 2 Eosinophils % (Manual) 1 Platelet Evaluation Normal PT INR APTT Sodium 130 L Potassium 4.5 Chloride 94 L Carbon Dioxide 27 Anion Gap 13 BUN 17 Creatinine 1.5 H Est GFR ( Amer) 40 Est GFR (Non-Af Amer) 33 Random Glucose 132 H Lactic Acid Calcium 8.7 Phosphorus 5.3 H Magnesium 2.2 Total Bilirubin 0.5 AST 21 ALT 18 Alkaline Phosphatase 95 Troponin I < 0.01 NT-Pro-B Natriuret Pep 619 H Total Protein 6.9 Albumin 3.3 Globulin 3.6 Albumin/Globulin Ratio 0.9 L Procalcitonin Urine Color Urine Appearance Urine pH Ur Specific [place] Urine Protein Urine Glucose (UA) Urine Ketones Urine Blood Urine Nitrate Urine Bilirubin Urine Urobilinogen Ur Leukocyte Esterase Urine RBC Urine WBC Ur Epithelial Cells Urine Bacteria Blood Type B POSITIVE Blood Type Confirm Antibody Screen Negative BBK History Checked No verified bt 05/31/18 05/31/18 05/31/18 14:15 14:15 14:40 WBC RBC Hgb Hct MCV MCH MCHC RDW Plt Count MPV Gran % Lymph % (Auto) [place] % (Auto) Eos % (Auto) Baso % (Auto) Gran # Lymph # (Auto) [place] # (Auto) Eos # (Auto) Baso # (Auto) Neutrophils % (Manual) Lymphocytes % (Manual) Monocytes % (Manual) Eosinophils % (Manual) Platelet Evaluation PT 16.5 H INR 1.44 H APTT 34.2 Sodium Potassium Chloride Carbon Dioxide Anion Gap BUN Creatinine Est GFR ( Amer) Est GFR (Non-Af Amer) Random Glucose Lactic Acid 1.1 Calcium Phosphorus Magnesium Total Bilirubin AST ALT Alkaline Phosphatase Troponin I NT-Pro-B Natriuret Pep Total Protein Albumin Globulin Albumin/Globulin Ratio Procalcitonin Urine Color Urine Appearance Urine pH Ur Specific [place] Urine Protein Urine Glucose (UA) Urine Ketones Urine Blood Urine Nitrate Urine Bilirubin Urine Urobilinogen Ur Leukocyte Esterase Urine RBC Urine WBC Ur Epithelial Cells Urine Bacteria Blood Type Blood Type Confirm B POSITIVE Antibody Screen BBK History Checked 05/31/18 05/31/18 06/01/18 14:50 17:38 00:25 WBC RBC Hgb Hct MCV MCH MCHC RDW Plt Count MPV Gran % Lymph % (Auto) [place] % (Auto) Eos % (Auto) Baso % (Auto) Gran # Lymph # (Auto) [place] # (Auto) Eos # (Auto) Baso # (Auto) Neutrophils % (Manual) Lymphocytes % (Manual) Monocytes % (Manual) Eosinophils % (Manual) Platelet Evaluation PT INR APTT Sodium Potassium Chloride Carbon Dioxide Anion Gap BUN Creatinine Est GFR ( Amer) Est GFR (Non-Af Amer) Random Glucose Lactic Acid Calcium Phosphorus Magnesium Total Bilirubin AST ALT Alkaline Phosphatase Troponin I < 0.01 NT-Pro-B Natriuret Pep Total Protein Albumin Globulin Albumin/Globulin Ratio Procalcitonin 0.27 Urine Color Yellow Urine Appearance Clear Urine pH 6.0 Ur Specific [place] 1.015 Urine Protein Trace H Urine Glucose (UA) Negative Urine Ketones Negative Urine Blood Trace-intact H Urine Nitrate Negative Urine Bilirubin Negative Urine Urobilinogen 0.2 Ur Leukocyte Esterase Small H Urine RBC 0 - 2 Urine WBC 10 - 15 Ur Epithelial Cells 10 - 12 Urine Bacteria Few Blood Type Blood Type Confirm Antibody Screen BBK History Checked Assessment & Plan - Assessment and Plan (Free Text) Assessment: Dx: Significant change in VS/Labs Pt seen at 11am by me not responding to verbal or painful stimuli--She started ar 2am post MS Injection and received Zanaflex(muscle relaxant) at 10 am. The BP was 77 and the pulse 50(Thready). She was lifted into the bed and awoke screaming about severe back pain. IV Fluids were started and RN instructed to transport ther patient to the ER because of the BP change and the HgB drop 12 to 9.9 Her previous WBC jumped to 12.6 and she had a temp of 100.7 This prompted our D/ C anticoagulants(ASA=Plavix-Lovenox) She was tentatively scheduled for I & D of her R Antecubital area Inflammation to get a deeper c/s(1st c/s neg) Her plavix will mitigate Platelet infuion immediately preop Full temp w/u was initiated-Neg so far Stool hemoccult neg before she went to the ER/Her BUN was low at 15--the etiology of the BP-Sensorium change was thought to bwe the Muscle Relaxant( Tizanide) The ER attending was called at 1:00 Pm and apparently did not get any of this information and will now address this in the workup Nico Queen MD FACS - Date & Time Time: 11:00
[2018-05-31 14:55] LABS: TROPONIN I < 0.01 ng/mL
[2018-05-31 14:58] LABS: ALB/GLOB RATIO 0.9 (1.1-1.8); ALBUMIN 3.3 g/dL (3.0-4.8); ALT/SGPT 18 U/L (7-56); AST/SGOT 21 U/L (14-36); B-TYPE NATRIURETIC PEPTIDE 619 pg/mL (0-450); BLOOD UREA NITROGEN 17 mg/dL (7-21); CALCIUM 8.7 mg/dL (8.4-10.5); GFR AFRICAN-AMERICAN 40; GFR NON-AFRICAN AMERICAN 33
[2018-05-31 15:04] LABS: URINE BILIRUBIN NEGATIVE (NEGATIVE); URINE BLOOD TRACE-INTACT (NEGATIVE); URINE GLUCOSE (UA) NEGATIVE (NEGATIVE); URINE LEUKOCYTE ESTERASE SMALL Leu/uL (NEGATIVE); URINE PROTEIN TRACE mg/dL (<30 mg/dL); URINE UROBILINOGEN 0.2 E.U./dL (<1 E.U./dL)
[2018-05-31 15:10] LABS: URINE APPEARANCE CLEAR (CLEAR); URINE COLOR YELLOW (YELLOW)
[2018-05-31 15:21] LABS: URINE BACTERIA FEW (NEG); URINE RBC 0 - 2 /hpf (0-2)
--- NOTE | 2018-05-31 15:28 | CT ---
Date of service: 05/31/2018 PROCEDURE: CT Lumbar Spine without contrast HISTORY: back pain, may include study in abdomen study COMPARISON: None. TECHNIQUE: Axial computed tomography images were obtained of the lumbar spine without the use of intravenous contrast. Coronal and sagittal reformatted images were created and reviewed. Radiation dose: Total exam DLP = 339 mGy-cm. This CT exam was performed using one or more of the following dose reduction techniques: Automated exposure control, adjustment of the mA and/or kV according to patient size, and/or use of iterative reconstruction technique. FINDINGS: VERTEBRAE: Unremarkable. No fracture. Normal alignment. DISCS/SPINAL CANAL/NEURAL FORAMINA: L1-2: Unremarkable. L2-3: Unremarkable. L3-4: Unremarkable. L4-5: Moderate disc bulge and moderate facet arthropathy without stenosis L5-S1: Unremarkable. PARASPINAL SOFT TISSUES: Unremarkable. OTHER FINDINGS: None. IMPRESSION: L4-5. Moderate disc bulge and moderate facet arthropathy without stenosis.
--- NOTE | 2018-05-31 15:50 | CP.PCM.HP ---
History of Present Illness - History of Present Illness History of Present Illness: CC: low back pain 82 year old female with PMH of COPD, asthma, TIA on plavix, HLD, right breast cancer s/p lumpectomy, presents for low back pain that started yesterday. Patient came to [facility] on 05/24/18 for right arm thrombophlebitis/cellulitis after she failed outpatient PO antibiotics, received IV antibiotics, then transferred to TCU for rehab. Patient was doing well, until yesterday, patient was noted to have severe low back pain, mild temp 100.7 with leukocytosis 12.9. Patient was started on Zanaflex and morphine for pain. This AM, patient was noted to have worsening low back pain, drowsiness, drop in hemoglobin 11.6->9.9, low BP 98/54. Patient given 250 ml NS bolus, decadron 10 mg IV, stopped zanaflex and morphine. Patient transferred to ED, CT abd pelvis neg for hematoma, head CT neg for acute CVA, lumbar CT showed moderate disc bulge L4-L5. After the bolus , patient's mentation improved AOx4, BP improved to 118/63. Patient denies fevers, chills, excessive right arm pain, discharge, nausea, vomiting, abdominal pain, leg swelling, cp, sob, cough, hematemesis, hematochezia, melena. Patient reports back pain, unabling her move around in bed. Of note, patient is also scheduled for possible aspiration/washout of right arm thrombus/ drainage with Dr Queen. 12 point ROS obtained and neg, except as per HPI. PMD: Dr. Almonte Pharmacy: [facility] in [place] PMH: COPD, asthma, HTN, TIA on plavix Past surgical history: hysterectomy, lumpectomy Allergies: Iodine Social history: Never smoked, drinks alcohol occasionally, denies use of recreational drugs. Family history: Mother of cancer, sister of neck cancer at 59 yo, brother of blood cancer at 42 yo. 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 Present on Admission - Present on Admission Any Indicators Present on Admission: No History of DVT/PE: No History of Uncontrolled Diabetes: No Urinary Catheter: No Decubitus Ulcer Present: No Review of Systems - Review of Systems All systems: reviewed and no additional remarkable complaints except Review of Systems: as per HPI Past Patient History - Infectious Disease Hx of Infectious Diseases: None - Tetanus Immunizations Tetanus Immunization: Unknown - Past Medical History & Family History Past Medical History?: Yes - Past Social History Smoking Status: Never Smoked - CARDIAC Hx Pacemaker: No - PULMONARY Hx Chronic Obstructive Pulmonary Disease (COPD): Yes - NEUROLOGICAL Hx Paralysis: No - HEENT Hx HEENT Problems: Yes Hx Deafness: Yes (hearing aid rt ear) - RENAL Hx Chronic Kidney Disease: No - ENDOCRINE/METABOLIC Hx Endocrine Disorders: No - HEMATOLOGICAL/ONCOLOGICAL Hx Blood Transfusions: No - INTEGUMENTARY Hx Dermatological Problems: No - MUSCULOSKELETAL/RHEUMATOLOGICAL Hx Musculoskeletal Disorders: No Hx Falls: No - GASTROINTESTINAL Hx Gastrointestinal Disorders: No - GENITOURINARY/GYNECOLOGICAL Hx Genitourinary Disorders: No - PSYCHIATRIC Hx Psychophysiologic Disorder: No Hx Substance Use: No - SURGICAL HISTORY Hx Hysterectomy: Yes Other/Comment: rt breast ca& lumpectomy - ANESTHESIA Hx Anesthesia Reactions: No Hx Malignant Hyperthermia: No Meds Allergies/Adverse Reactions: Allergies Allergy/AdvReac Type Severity Reaction Status Date / Time iodine Allergy RASH Verified 05/27/18 19:59 Iodine and Iodide Containing Allergy RASH Verified 05/27/18 19:59 Produc Physical Exam - Constitutional Appears: Non-toxic, Older Than Stated Age - Head Exam Head Exam: ATRAUMATIC, NORMOCEPHALIC - Eye Exam Eye Exam: EOMI, PERRL. absent: Conjunctival injection, Nystagmus, Scleral icterus Pupil Exam: NORMAL ACCOMODATION, PERRL. absent: Irregular, Miosis, Mydriatic, Unequal - ENT Exam ENT Exam: Mucous Membranes Dry - Neck Exam Neck exam: Positive for: Normal Inspection - Respiratory Exam Respiratory Exam: Clear to Auscultation Bilateral, NORMAL BREATHING PATTERN. absent: Accessory Muscle Use, Chest Wall Tenderness, Prolonged Expiratory Phase , Rales, Rhonchi, Wheezes, Respiratory Distress - Cardiovascular Exam Cardiovascular Exam: Bradycardia, +S1, +S2. absent: Systolic Murmur - GI/Abdominal Exam GI & Abdominal Exam: Normal Bowel Sounds, Soft. absent: Distended, Mass, Pulsatile Mass, Rebound, Rigid, Tenderness - Rectal Exam Rectal Exam: absent: Black Stool, Bloody Stool, Hemorrhoids, Fecal Impaction Additional comments: negative stool occult. No kait blood or melena seen on rectal exam - Extremities Exam Extremities exam: Positive for: normal capillary refill, normal inspection, pedal pulses present. Negative for: calf tenderness, pedal edema - Back Exam Back exam: muscle spasm, NORMAL INSPECTION, tenderness (+ tenderness right buttock, paraspinal muscles lumbar area, limited ROM of lumbar area due to pain) . absent: CVA tenderness (L), CVA tenderness (R), vertebral tenderness - Neurological Exam Neurological exam: Alert, CN II-XII Intact, Oriented x3 Additional comments: + sensation and motor strength intact no dysmetria - Psychiatric Exam Additional comments: + mildly drowsy, AOx4 - Skin Skin Exam: Dry, Normal Color, Warm Results - Vital Signs Recent Vital Signs: Last Vital Signs Temp 98.0 F 05/31/18 12:31 Pulse 59 L 05/31/18 14:51 Resp 16 05/31/18 14:51 BP 118/63 05/31/18 14:51 Pulse Ox 96 05/31/18 14:20 - Labs Result Diagrams: 05/31/18 14:15 05/31/18 14:15 Labs: Laboratory Results - last 24 hr 05/31/18 05/31/18 05/31/18 14:15 14:15 14:15 WBC 13.6 H D RBC 3.75 Hgb 10.3 L Hct 30.9 L MCV 82.4 MCH 27.5 MCHC 33.3 RDW 14.8 H Plt Count 326 MPV 8.5 Gran % 92.0 H Lymph % (Auto) 4.3 L [place] % (Auto) 2.9 Eos % (Auto) 0.7 L Baso % (Auto) 0.1 Gran # 12.47 H Lymph # (Auto) 0.6 L [place] # (Auto) 0.4 Eos # (Auto) 0.1 Baso # (Auto) 0.02 Neutrophils % (Manual) 93 H Lymphocytes % (Manual) 4 L Monocytes % (Manual) 2 Eosinophils % (Manual) 1 Platelet Evaluation Normal PT INR APTT Sodium 130 L Potassium 4.5 Chloride 94 L Carbon Dioxide 27 Anion Gap 13 BUN 17 Creatinine 1.5 H Est GFR ( Amer) 40 Est GFR (Non-Af Amer) 33 Random Glucose 132 H Lactic Acid Calcium 8.7 Phosphorus 5.3 H Magnesium 2.2 Total Bilirubin 0.5 AST 21 ALT 18 Alkaline Phosphatase 95 Troponin I < 0.01 NT-Pro-B Natriuret Pep 619 H Total Protein 6.9 Albumin 3.3 Globulin 3.6 Albumin/Globulin Ratio 0.9 L Urine Color Urine Appearance Urine pH Ur Specific [place] Urine Protein Urine Glucose (UA) Urine Ketones Urine Blood Urine Nitrate Urine Bilirubin Urine Urobilinogen Ur Leukocyte Esterase Urine RBC Urine WBC Ur Epithelial Cells Urine Bacteria Blood Type B POSITIVE Blood Type Confirm Antibody Screen Negative BBK History Checked No verified bt 05/31/18 05/31/18 05/31/18 14:15 14:15 14:40 WBC RBC Hgb Hct MCV MCH MCHC RDW Plt Count MPV Gran % Lymph % (Auto) [place] % (Auto) Eos % (Auto) Baso % (Auto) Gran # Lymph # (Auto) [place] # (Auto) Eos # (Auto) Baso # (Auto) Neutrophils % (Manual) Lymphocytes % (Manual) Monocytes % (Manual) Eosinophils % (Manual) Platelet Evaluation PT 16.5 H INR 1.44 H APTT 34.2 Sodium Potassium Chloride Carbon Dioxide Anion Gap BUN Creatinine Est GFR ( Amer) Est GFR (Non-Af Amer) Random Glucose Lactic Acid 1.1 Calcium Phosphorus Magnesium Total Bilirubin AST ALT Alkaline Phosphatase Troponin I NT-Pro-B Natriuret Pep Total Protein Albumin Globulin Albumin/Globulin Ratio Urine Color Urine Appearance Urine pH Ur Specific [place] Urine Protein Urine Glucose (UA) Urine Ketones Urine Blood Urine Nitrate Urine Bilirubin Urine Urobilinogen Ur Leukocyte Esterase Urine RBC Urine WBC Ur Epithelial Cells Urine Bacteria Blood Type Blood Type Confirm B POSITIVE Antibody Screen BBK History Checked 05/31/18 14:50 WBC RBC Hgb Hct MCV MCH MCHC RDW Plt Count MPV Gran % Lymph % (Auto) [place] % (Auto) Eos % (Auto) Baso % (Auto) Gran # Lymph # (Auto) [place] # (Auto) Eos # (Auto) Baso # (Auto) Neutrophils % (Manual) Lymphocytes % (Manual) Monocytes % (Manual) Eosinophils % (Manual) Platelet Evaluation PT INR APTT Sodium Potassium Chloride Carbon Dioxide Anion Gap BUN Creatinine Est GFR ( Amer) Est GFR (Non-Af Amer) Random Glucose Lactic Acid Calcium Phosphorus Magnesium Total Bilirubin AST ALT Alkaline Phosphatase Troponin I NT-Pro-B Natriuret Pep Total Protein Albumin Globulin Albumin/Globulin Ratio Urine Color Yellow Urine Appearance Clear Urine pH 6.0 Ur Specific [place] 1.015 Urine Protein Trace H Urine Glucose (UA) Negative Urine Ketones Negative Urine Blood Trace-intact H Urine Nitrate Negative Urine Bilirubin Negative Urine Urobilinogen 0.2 Ur Leukocyte Esterase Small H Urine RBC 0 - 2 Urine WBC 10 - 15 Ur Epithelial Cells 10 - 12 Urine Bacteria Few Blood Type Blood Type Confirm Antibody Screen BBK History Checked Assessment & Plan - Assessment and Plan (Free Text) Assessment: 82 year old female with PMH COPD, asthma, HTN, and TIA, initially presented to [facility] for right arm cellulitis, received IV zyvox. Patient then transferred to TCU , developed leukocytosis, low grade temp with severe back pain yesterday. Today , patient found to have transient hypotension, drop in hemoglobin. Patient readmitted to [facility]/remote tele for further care/imaging: Mild hypotension: 2/2 drug induced (morphine, zanaflex) vs dehydration vs sepsis - s/p fluid bolus 250 ml NS - NS @80 - UA positive for mild infection, however patient asymptomatic - f/u blood, urine cultures - tylenol prn pain MAXIMILIANO: 2/2 dehydration - Cr 1.5 (baseline 0.9) - NS @80 - monitor Hyponatremia: 2/2 dehydration - NS @ 80 - monitor Low back pain: - Lumbar x ray neg - CT abd pelvis neg for bleed/collection - Lumbar CT shows L4-L5 moderate disc bulge - Neurology consulted. f.u recs - given decadron 10 mg IV in TCU - tylenol prn pain - PT/OT eval/therapy Right arm thrombophlebitis with superimposed cellulitis: - Extremity u/s of right arm: shows acute superficial thrombophlebitis of left basilic vein above the elbow. No DVT. - CAT upper extremity showed cellulitis in antecubital fossa. - afebrile, no leukocytosis - Elbow xray (05/19) was negative - ID consulted. F/u recs - On Zyvox Day 7 - Bactroban ointment - F.u new blood cultures, procal - UA pos for infection, however, patient is asymptomatic. Anemia: likely ACD and iron deficiency anemia - MCV 82.4 - stool occult and rectal exam in ED negative - GI consulted. f/u recs - no overt signs of bleeding - type and screen - monitor Hypercholesterolemia: - Continue with lovaza, lipitor Hx of Hypertension: - Hold home Amlodipine - monitor BP History of TIA - will discuss with surgery whether to hold ASA, clopidogrel in setting of possible I&D tomorrow History of COPD and Asthma: - Duonebs GI/DVT prophylaxis - Protonix - heparin sq Upon discharge, patient will follow up with Dr Almonte. Case seen and discussed with Dr Amezcua. Bindu Hagan, [id number]
--- NOTE | 2018-05-31 16:27 | CP.PCM.CON ---
<Mark Hedrick - Last Filed: 05/31/18 19:54> History of Present Illness - History of Present Illness History of Present Illness: GI Consult Note for Dr. Singh Service Mark Hedrick, PGY-3 IM This is a 82 yo F with PMH of COPD, asthma, TIA on plavix, HLD, and right breast cancer s/p lumpectomy who was sent from TCU to the ED due to acute onsent and persistence of low back pain x2 days and decrease in Hgb from 12 to 9.9 in the same interval. Patient came to [facility] on 05/24/18 for right arm thrombophlebitis/cellulitis after she failed outpatient PO antibiotics, received IV antibiotics with some improvement, then transferred to TCU for rehab. GI was consulted for Hgb drop, concern for possible GI bleed. As per primary team and patient, some reported dizziness this AM, but patient states this occurred right after getting her AM morphine, which she believes was the cause of her symptoms. Also reported was brief decrease in BP to 90's/50's, concurrent with the dizziness, resolved with IV fluid administration. Patient denies room spinning, weakness, or syncope/near-syncope. Reports 4-5 loose BMs daily, baseline for several weeks, but denies black/tarry stools, bright red blood, blood when wiping, or watery diarrhea. Reports tolerating PO well, no nausea/emesis. Denies fevers today (last reported fever 100.7 at 2pm 05/30), shortness of breath, chest pain, focal weakness. Feels arm is improved compared to state on arrival to [facility]. All other ROS in 12-system review negative. Of note, while in ED, rectal exam was performed and guiac testing of stool was performed, and was negative for blood in stool. PMH: as above Past surgical history: hysterectomy, lumpectomy Soc Hx: Never smoked, drinks alcohol occasionally, denies use of recreational drugs. Fam Hx: Mother of cancer, sister of neck cancer at 59 yo, brother of blood cancer at 42 yo. PMD: Dr. Almonte Review of Systems - Review of Systems All systems: reviewed and no additional remarkable complaints except (as per HPI ) Past Patient History - Infectious Disease Hx of Infectious Diseases: None - Tetanus Immunizations Tetanus Immunization: Unknown - Past Medical History & Family History Past Medical History?: Yes - Past Social History Smoking Status: Never Smoked - CARDIAC Hx Pacemaker: No - PULMONARY Hx Chronic Obstructive Pulmonary Disease (COPD): Yes - NEUROLOGICAL Hx Paralysis: No - HEENT Hx HEENT Problems: Yes Hx Deafness: Yes (hearing aid rt ear) - RENAL Hx Chronic Kidney Disease: No - ENDOCRINE/METABOLIC Hx Endocrine Disorders: No - HEMATOLOGICAL/ONCOLOGICAL Hx Blood Transfusions: No - INTEGUMENTARY Hx Dermatological Problems: No - MUSCULOSKELETAL/RHEUMATOLOGICAL Hx Musculoskeletal Disorders: No Hx Falls: No - GASTROINTESTINAL Hx Gastrointestinal Disorders: No - GENITOURINARY/GYNECOLOGICAL Hx Genitourinary Disorders: No - PSYCHIATRIC Hx Psychophysiologic Disorder: No Hx Substance Use: No - SURGICAL HISTORY Hx Hysterectomy: Yes Other/Comment: rt breast ca& lumpectomy - ANESTHESIA Hx Anesthesia Reactions: No Hx Malignant Hyperthermia: No Meds Allergies/Adverse Reactions: Allergies Allergy/AdvReac Type Severity Reaction Status Date / Time iodine Allergy RASH Verified 05/27/18 19:59 Iodine and Iodide Containing Allergy RASH Verified 05/27/18 19:59 Produc - Medications Medications: Current Medications Albuterol/Ipratropium (Duoneb 3 Mg/0.5 Mg (3 Ml) Ud) 3 ml IH Q6H JANETTE Arformoterol Tartrate (Brovana) 15 mcg IH [id number] JNAETTE Aspirin (Ecotrin) 81 mg PO DAILY JANETTE Atorvastatin Calcium (Lipitor) 40 mg PO DAILY JANETTE Docusate Sodium (Colace) 100 mg PO TID JANETTE Sodium Chloride (Sodium Chloride 0.9%) 1,000 mls @ 80 mls/hr IV .[id number] JANETTE Linezolid (Zyvox 600mg/300ml D5w) 600 mg in 300 mls @ 200 mls/hr IVPB Q12 JANETTE PRN Reason: Protocol Stop: 05/31/18 23:29 Mupirocin (Bactroban Ointment) 0 gm TOP Q8H JANETTE Torod-7-Vgva Ethyl Esters (Lovaza) 2 gm PO BID JANETTE Pantoprazole Sodium (Protonix Ec Tab) 40 mg PO 0600 JANETTE Sennosides (Senokot Tab) 17.2 mg PO HS JANETTE Physical Exam - Constitutional Appears: Non-toxic, No Acute Distress, Chronically Ill - Head Exam Head Exam: ATRAUMATIC, NORMAL INSPECTION, NORMOCEPHALIC - Eye Exam Eye Exam: EOMI, Normal appearance. absent: Conjunctival injection, Scleral icterus Pupil Exam: absent: Fixed, Irregular - ENT Exam ENT Exam: Mucous Membranes Moist - Neck Exam Neck exam: Positive for: Full Rom, Normal Inspection - Respiratory Exam Respiratory Exam: Clear to Auscultation Bilateral, NORMAL BREATHING PATTERN. absent: Accessory Muscle Use, Chest Wall Tenderness, Decreased Breath Sounds, Rales, Rhonchi, Wheezes, Respiratory Distress - Cardiovascular Exam Cardiovascular Exam: REGULAR RHYTHM, RRR, +S1, +S2. absent: Bradycardia, Tachycardia, Irregular Rhythm, JVD, +S4 - GI/Abdominal Exam GI & Abdominal Exam: Firm (firm to palpation, palpable loops of bowel, palpable (distended?) bladder extending past suprapubic region towards epigastric region) , Normal Bowel Sounds. absent: Diminished Bowel Sounds, Distended, Hyperactive Bowel Sounds, Hypoactive Bowel Sounds, Rigid, Soft, Tenderness - Rectal Exam Rectal Exam: Deferred (completed by ED staff immediately prior to exam, brown stool guiac negative, no reported masses by ED team) - Extremities Exam Extremities exam: Negative for: calf tenderness, normal capillary refill, pedal edema, tenderness Additional comments: no kait erythema or grossly edematous region appreciated on RUE - Back Exam Additional comments: patient developed acute episode of severe back pain during exam, lasting for 1- 2 minutes, self resolved with no intervention, reports feels like electric shock /stabbing travelling down back into legs (did not specific a side), back not examined at patient's request at that time - Neurological Exam Additional comments: awake and alert, moving all extremities spontaneously, following all commands appropriately, motor appears grossly intact and equal bilaterally - Psychiatric Exam Psychiatric exam: Normal Affect, Normal Mood - Skin Skin Exam: Dry, Intact, Normal Color, Warm Additional comments: no appreciable erythema/edema/tenderness along skin of RUE Results - Vital Signs Recent Vital Signs: Last Vital Signs Temp 98.0 F 05/31/18 12:31 Pulse 59 L 05/31/18 14:51 Resp 16 05/31/18 14:51 BP 118/63 05/31/18 14:51 Pulse Ox 96 05/31/18 14:20 - Labs Result Diagrams: 05/31/18 14:15 05/31/18 14:15 Labs: Laboratory Results - last 24 hr 05/31/18 05/31/1805/31/18 14:15 14:15 14:15 WBC 13.6 H D RBC 3.75 Hgb 10.3 L Hct 30.9 L MCV 82.4 MCH 27.5 MCHC 33.3 RDW 14.8 H Plt Count 326 MPV 8.5 Gran % 92.0 H Lymph % (Auto) 4.3 L Gulf % (Auto) 2.9 Eos % (Auto) 0.7 L Baso % (Auto) 0.1 Gran # 12.47 H Lymph # (Auto) 0.6 L [place] # (Auto) 0.4 Eos # (Auto) 0.1 Baso # (Auto) 0.02 Neutrophils % (Manual) 93 H Lymphocytes % (Manual) 4 L Monocytes % (Manual) 2 Eosinophils % (Manual) 1 Platelet Evaluation Normal PT INR APTT Sodium 130 L Potassium 4.5 Chloride 94 L Carbon Dioxide 27 Anion Gap 13 BUN 17 Creatinine 1.5 H Est GFR ( Amer) 40 Est GFR (Non-Af Amer) 33 Random Glucose 132 H Lactic Acid Calcium 8.7 Phosphorus 5.3 H Magnesium 2.2 Total Bilirubin 0.5 AST 21 ALT 18 Alkaline Phosphatase 95 Troponin I < 0.01 NT-Pro-B Natriuret Pep 619 H Total Protein 6.9 Albumin 3.3 Globulin 3.6 Albumin/Globulin Ratio 0.9 L Urine Color Urine Appearance Urine pH Ur Specific [place] Urine Protein Urine Glucose (UA) Urine Ketones Urine Blood Urine Nitrate Urine Bilirubin Urine Urobilinogen Ur Leukocyte Esterase Urine RBC Urine WBC Ur Epithelial Cells Urine Bacteria Blood Type B POSITIVE Blood Type Confirm Antibody Screen Negative BBK History Checked No verified bt 05/31/18 05/31/18 05/31/18 14:15 14:15 14:40 WBC RBC Hgb Hct MCV MCH MCHC RDW Plt Count MPV Gran % Lymph % (Auto) [place] % (Auto) Eos % (Auto) Baso % (Auto) Gran # Lymph # (Auto) [place] # (Auto) Eos # (Auto) Baso # (Auto) Neutrophils % (Manual) Lymphocytes % (Manual) Monocytes % (Manual) Eosinophils % (Manual) Platelet Evaluation PT 16.5 H INR 1.44 H APTT 34.2 Sodium Potassium Chloride Carbon Dioxide Anion Gap BUN Creatinine Est GFR ( Amer) Est GFR (Non-Af Amer) Random Glucose Lactic Acid 1.1 Calcium Phosphorus Magnesium Total Bilirubin AST ALT Alkaline Phosphatase Troponin I NT-Pro-B Natriuret Pep Total Protein Albumin Globulin Albumin/Globulin Ratio Urine Color Urine Appearance Urine pH Ur Specific [place] Urine Protein Urine Glucose (UA) Urine Ketones Urine Blood Urine Nitrate Urine Bilirubin Urine Urobilinogen Ur Leukocyte Esterase Urine RBC Urine WBC Ur Epithelial Cells Urine Bacteria Blood Type Blood Type Confirm B POSITIVE Antibody Screen BBK History Checked 05/31/18 14:50 WBC RBC Hgb Hct MCV MCH MCHC RDW Plt Count MPV Gran % Lymph % (Auto) [place] % (Auto) Eos % (Auto) Baso % (Auto) Gran # Lymph # (Auto) [place] # (Auto) Eos # (Auto) Baso # (Auto) Neutrophils % (Manual) Lymphocytes % (Manual) Monocytes % (Manual) Eosinophils % (Manual) Platelet Evaluation PT INR APTT Sodium Potassium Chloride Carbon Dioxide Anion Gap BUN Creatinine Est GFR ( Amer) Est GFR (Non-Af Amer) Random Glucose Lactic Acid Calcium Phosphorus Magnesium Total Bilirubin AST ALT Alkaline Phosphatase Troponin I NT-Pro-B Natriuret Pep Total Protein Albumin Globulin Albumin/Globulin Ratio Urine Color Yellow Urine Appearance Clear Urine pH 6.0 Ur Specific [place] 1.015 Urine Protein Trace H Urine Glucose (UA) Negative Urine Ketones Negative Urine Blood Trace-intact H Urine Nitrate Negative Urine Bilirubin Negative Urine Urobilinogen 0.2 Ur Leukocyte Esterase Small H Urine RBC 0 - 2 Urine WBC 10 - 15 Ur Epithelial Cells 10 - 12 Urine Bacteria Few Blood Type Blood Type Confirm Antibody Screen BBK History Checked Assessment & Plan - Assessment and Plan (Free Text) Assessment: This is a 82 yo F with PMH of COPD, asthma, TIA on plavix, HLD, and right breast cancer s/p lumpectomy who was sent from TCU to the ED due to acute onsent and persistence of low back pain x2 days and decrease in Hgb from 12 to 9.9 in the same interval. GI consulted for acute drop in Hgb, concerning for possible GI bleed. Plan: COPD/asthma Hx TIA, on plavix and Aspirin right breast cancer s/p lumpectomy acute Hgb drop from 12 to 9.9 in 48 hours acute onset intermittent severe back pain Ddx: GI bleed 2/2 dual antiplatelets vs dilutional effect from IV fluids -Rectal exam negative for bleeding, stool occult negative -CT abd/pelvis obtained, notable for constipation and distended full bladder with suspected urinary retention -Iron studies notable for low iron, and low-normal MCV with wide RDW consistent with Iron-deficiency anemia -Continue to monitor H&H -Planning for EGD tomorrow, not planning to biopsy so no need to hold Plavix; defer to Surgery for NPO onset and if platelets needed as potentially going for I&D of RUE tomorrow Seen, reviewed, and examined with attending, Dr Singh <Sanjana Singh V - Last Filed: 05/31/18 22:58> Meds - Medications Medications: Current Medications Albuterol/Ipratropium (Duoneb 3 Mg/0.5 Mg (3 Ml) Ud) 3 ml IH Q6H [facility] Last Admin: 05/31/18 20:22 Dose: 3 ml Arformoterol Tartrate (Brovana) 15 mcg IH [id number] [facility] Last Admin: 05/31/18 20:22 Dose: 15 mcg Atorvastatin Calcium (Lipitor) 40 mg PO DAILY [facility] Cyclobenzaprine HCl (Flexeril) 5 mg PO TID [facility] Last Admin: 05/31/18 18:16 Dose: 5 mg Docusate Sodium (Colace) 100 mg PO TID [facility] Last Admin: 05/31/18 18:14 Dose: 100 mg Heparin Sodium (Porcine) (Heparin) 5,000 units SC Q8 JANETTE PRN Reason: Protocol Last Admin: 05/31/18 17:00 Dose: 5,000 units Sodium Chloride (Sodium Chloride 0.9%) 1,000 mls @ 80 mls/hr IV .[id number] [facility] Last Admin: 05/31/18 17:03 Dose: 80 mls/hr Linezolid (Zyvox 600mg/300ml D5w) 600 mg in 300 mls @ 200 mls/hr IVPB Q12 [facility] PRN Reason: Protocol Stop: 05/31/18 23:29 Last Admin: 05/31/18 22:05 Dose: 200 mls/hr Mupirocin (Bactroban Ointment) 0 gm TOP Q8H [facility] Last Admin: 05/31/18 17:20 Dose: 1 applic Emssa-6-[id number] Ethyl Esters (Lovaza) 2 gm PO BID [facility] Last Admin: 05/31/18 18:14 Dose: 2 gm Pantoprazole Sodium (Protonix Ec Tab) 40 mg PO 0600 JANETTE Sennosides (Senokot Tab) 17.2 mg PO HS JANETTE Last Admin: 05/31/18 22:03 Dose: 17.2 mg Tramadol HCl (Ultram) 50 mg PO Q12 PRN PRN Reason: Pain, severe (8-10) Results - Vital Signs Recent Vital Signs: Last Vital Signs Temp 98 F 05/31/18 18:34 Pulse 58 L 05/31/18 18:34 Resp 16 05/31/18 18:34 BP 115/58 L 05/31/18 18:34 Pulse Ox 99 05/31/18 17:38 - Labs Result Diagrams: 05/31/18 14:15 05/31/18 14:15 Labs: Laboratory Results - last 24 hr 05/31/18 05/31/18 05/31/18 14:15 14:15 14:15 WBC 13.6 H D RBC 3.75 Hgb 10.3 L Hct 30.9 L MCV 82.4 MCH 27.5 MCHC 33.3 RDW 14.8 H Plt Count 326 MPV 8.5 Gran % 92.0 H Lymph % (Auto) 4.3 L [place] % (Auto) 2.9 Eos % (Auto) 0.7 L Baso % (Auto) 0.1 Gran # 12.47 H Lymph # (Auto) 0.6 L [place] # (Auto) 0.4 Eos # (Auto) 0.1 Baso # (Auto) 0.02 Neutrophils % (Manual) 93 H Lymphocytes % (Manual) 4 L Monocytes % (Manual) 2 Eosinophils % (Manual) 1 Platelet Evaluation Normal PT INR APTT Sodium 130 L Potassium 4.5 Chloride 94 L Carbon Dioxide 27 Anion Gap 13 BUN 17 Creatinine 1.5 H Est GFR ( Amer) 40 Est GFR (Non-Af Amer) 33 Random Glucose 132 H Lactic Acid Calcium 8.7 Phosphorus 5.3 H Magnesium 2.2 Total Bilirubin 0.5 AST 21 ALT 18 Alkaline Phosphatase 95 Troponin I < 0.01 NT-Pro-B Natriuret Pep 619 H Total Protein 6.9 Albumin 3.3 Globulin 3.6 Albumin/Globulin Ratio 0.9 L Procalcitonin Urine Color Urine Appearance Urine pH Ur Specific [place] Urine Protein Urine Glucose (UA) Urine Ketones Urine Blood Urine Nitrate Urine Bilirubin Urine Urobilinogen Ur Leukocyte Esterase Urine RBC Urine WBC Ur Epithelial Cells Urine Bacteria Blood Type B POSITIVE Blood Type Confirm Antibody Screen Negative BBK History Checked No verified bt 05/31/18 05/31/18 05/31/18 14:15 14:15 14:40 WBC RBC Hgb Hct MCV MCH MCHC RDW Plt Count MPV Gran % Lymph % (Auto) [place] % (Auto) Eos % (Auto) Baso % (Auto) Gran # Lymph # (Auto) [place] # (Auto) Eos # (Auto) Baso # (Auto) Neutrophils % (Manual) Lymphocytes % (Manual) Monocytes % (Manual) Eosinophils % (Manual) Platelet Evaluation PT 16.5 H INR 1.44 H APTT 34.2 Sodium Potassium Chloride Carbon Dioxide Anion Gap BUN Creatinine Est GFR ( Amer) Est GFR (Non-Af Amer) Random Glucose Lactic Acid 1.1 Calcium Phosphorus Magnesium Total Bilirubin AST ALT Alkaline Phosphatase Troponin I NT-Pro-B Natriuret Pep Total Protein Albumin Globulin Albumin/Globulin Ratio Procalcitonin Urine Color Urine Appearance Urine pH Ur Specific [place] Urine Protein Urine Glucose (UA) Urine Ketones Urine Blood Urine Nitrate Urine Bilirubin Urine Urobilinogen Ur Leukocyte Esterase Urine RBC Urine WBC Ur Epithelial Cells Urine Bacteria Blood Type Blood Type Confirm B POSITIVE Antibody Screen BBK History Checked 05/31/18 05/31/18 14:50 17:38 WBC RBC Hgb Hct MCV MCH MCHC RDW Plt Count MPV Gran % Lymph % (Auto) [place] % (Auto) Eos % (Auto) Baso % (Auto) Gran # Lymph # (Auto) [place] # (Auto) Eos # (Auto) Baso # (Auto) Neutrophils % (Manual) Lymphocytes % (Manual) Monocytes % (Manual) Eosinophils % (Manual) Platelet Evaluation PT INR APTT Sodium Potassium Chloride Carbon Dioxide Anion Gap BUN Creatinine Est GFR ( Amer) Est GFR (Non-Af Amer) Random Glucose Lactic Acid Calcium Phosphorus Magnesium Total Bilirubin AST ALT Alkaline Phosphatase Troponin I NT-Pro-B Natriuret Pep Total Protein Albumin Globulin Albumin/Globulin Ratio Procalcitonin 0.27 Urine Color Yellow Urine Appearance Clear Urine pH 6.0 Ur Specific [place] 1.015 Urine Protein Trace H Urine Glucose (UA) Negative Urine Ketones Negative Urine Blood Trace-intact H Urine Nitrate Negative Urine Bilirubin Negative Urine Urobilinogen 0.2 Ur Leukocyte Esterase Small H Urine RBC 0 - 2 Urine WBC 10 - 15 Ur Epithelial Cells 10 - 12 Urine Bacteria Few Blood Type Blood Type Confirm Antibody Screen BBK History Checked Attending/Attestation - Attestation I have personally seen and examined this patient.: Yes I have fully participated in the care of the patient.: Yes I have reviewed all pertinent clinical information: Yes Notes (Text): This is an addendum to GI consult report dictated by the Casting Room Operator.The patient was seen and examined earlier. Medical records, lab studies, imagings were reviewed. Last 24 hours events reviewed. Agreed with the above treatment plan as outlined in Casting Room Operator 's notes the with the addition of the following Significant drop in Hb/Hct No obvious BRBPR or patricia on aspirin,plaxix for TIA/CVA scheduled for possible surgical intervention ?abscess o/e lower abdomen distended CT reviewed large amount of stool and bladder distention plan for diagnostic EGD tomorrow followup Hb/Hct Miralax PPI 05/31/18 22:52
[2018-05-31] MEDS: Albuterol-Ipratrop 3 mg / 0.5 (3 ml) UD IH SCH ×2 (17:02→20:22)
[2018-05-31] MEDS: Sodium Chloride 0.9% 1,000 ML IV SCH (17:03)
[2018-05-31] MEDS: Mupirocin 2% Ointment 15 GM TUBE TOP SCH ×2 (17:20→23:20)
[2018-05-31] MEDS: POLYETHYLENE GLYCOL 3350 17 GM/Dose PACKET PO SCH ×2 (18:14→22:03)
[2018-05-31] MEDS: Omega-3-Acid Ethyl Esters 1 GM Cap PO SCH (18:14)
--- NOTE | 2018-05-31 18:52 | CARD ---
APPROVED REPORT Date of service: 05/31/2018 EKG Measurement Heart [id number] <Conclusion> Normal sinus rhythm Normal ECG
[2018-05-31] MEDS ORDERED: Pneumococcal 23-Valent Vaccine IM ONE (18:56)
[2018-05-31] MEDS: Arformoterol 15 mcg/2 ml Inh Sol IH SCH (20:22)
[2018-05-31] MEDS ORDERED: Linezolid 600 mg in D5W 300 ml 600 MG/300 ML BAG IVPB SCH (22:00)
[2018-06-01] MEDS: Albuterol-Ipratrop 3 mg / 0.5 (3 ml) UD IH SCH ×4 (02:45→20:01)
[2018-06-01] MEDS: Sodium Chloride 0.9% 1,000 ML IV SCH ×2 (04:00→17:10)
[2018-06-01] MEDS: Pantoprazole 40 mg EC Tab PO SCH (05:40)
[2018-06-01] MEDS: Mupirocin 2% Ointment 15 GM TUBE TOP SCH ×3 (05:42→17:13)
[2018-06-01 07:10] LABS: GRAN # 9.04 (1.4-6.5); GRAN % 89.1 % (50.0-68.0); LYMPH # 0.6 (1.2-3.4); LYMPH % 5.4 % (22.0-35.0); MEAN CELL VOLUME 81.1 fl (80.0-105.0); MEAN CORPUSCULAR HGB CONC 33.3 g/dl (31.0-37.0); MEAN PLATELET VOLUME 8.7 fl (7.0-11.0); MONO # 0.6 (0.1-0.6); MONO % 5.5 % (1.0-6.0); RBC 3.7 10^6/uL (3.5-6.1); RED CELL DISTRIBUTION WIDTH 14.5 % (11.5-14.5); WHITE BLOOD COUNT 10.2 10^3/ul (4.5-11.0)
[2018-06-01 07:19] LABS: INR 1.31 (0.93-1.08); PROTHROMBIN TIME 15.2 SECONDS (9.4-12.5)
[2018-06-01 07:20] LABS: PARTIAL THROMBOPLASTIN TIME 31.2 Seconds (25.1-36.5)
[2018-06-01] MEDS: Arformoterol 15 mcg/2 ml Inh Sol IH SCH ×2 (07:20→20:02)
[2018-06-01 07:27] LABS: ALB/GLOB RATIO 0.9 (1.1-1.8); ALBUMIN 3.1 g/dL (3.0-4.8); ALT/SGPT 21 U/L (7-56); AST/SGOT 28 U/L (14-36); BLOOD UREA NITROGEN 23 mg/dL (7-21); CALCIUM 8.4 mg/dL (8.4-10.5); GFR AFRICAN-AMERICAN 52; GFR NON-AFRICAN AMERICAN 43
[2018-06-01 07:30] LABS: TROPONIN I < 0.01 ng/mL
[2018-06-01] MEDS: Omega-3-Acid Ethyl Esters 1 GM Cap PO SCH ×3 (08:59→17:02)
[2018-06-01] MEDS: POLYETHYLENE GLYCOL 3350 17 GM/Dose PACKET PO SCH ×3 (08:59→17:07)
[2018-06-01] MEDS: Linezolid 600 mg in D5W 300 ml 600 MG/300 ML BAG IVPB SCH ×2 (08:59→22:57)
[2018-06-01] MEDS ORDERED: Linezolid 600 mg in D5W 300 ml 600 MG/300 ML BAG IVPB SCH (10:00)
--- NOTE | 2018-06-01 10:57 | CP.PCM.PN ---
Subjective - Date & Time of Evaluation Date of Evaluation: 06/01/18 Time of Evaluation: 10:57 - Subjective Subjective: Bindu Hagan, PGY2, Medicine Progress Note: Patient seen and examined at bedside. No acute events overnight. Patient reports feeling better today, however, still reports back pain. Denies cp, sob, weakness, drowsiness, dizziness, abdominal pain, nausea, vomiting, abdominal pain, leg swelling, overt signs of bleeding. Patient scheduled for EGD today around 2 PM. Objective - Vital Signs/Intake and Output Vital Signs (last 24 hours): Temp Pulse Resp BP Pulse Ox 97.5 F L 65 20 114/59 L 96 06/01/18 08:47 06/01/18 08:47 06/01/18 08:47 06/01/18 08:47 06/01/18 08:47 Intake and Output: 06/01/18 06/01/18 06:59 18:59 Intake Total 1140 Output Total 200 Balance 940 - Medications Medications: Current Medications Albuterol/Ipratropium (Duoneb 3 Mg/0.5 Mg (3 Ml) Ud) 3 ml IH Q6H [facility] Last Admin: 06/01/18 07:20 Dose: 3 ml Arformoterol Tartrate (Brovana) 15 mcg IH [id number] [facility] Last Admin: 06/01/18 07:20 Dose: 15 mcg Atorvastatin Calcium (Lipitor) 40 mg PO DAILY [facility] Last Admin: 06/01/18 08:59 Dose: 40 mg Cyclobenzaprine HCl (Flexeril) 5 mg PO TID [facility] Last Admin: 06/01/18 09:09 Dose: Not Given Docusate Sodium (Colace) 100 mg PO TID [facility] Last Admin: 06/01/18 08:59 Dose: 100 mg Heparin Sodium (Porcine) (Heparin) 5,000 units SC Q8 JANETTE PRN Reason: Protocol Last Admin: 05/31/18 23:25 Dose: Not Given Sodium Chloride (Sodium Chloride 0.9%) 1,000 mls @ 80 mls/hr IV .[id number] [facility] Last Admin: 06/01/18 04:00 Dose: 80 mls/hr Linezolid (Zyvox 600mg/300ml D5w) 600 mg in 300 mls @ 200 mls/hr IVPB Q12 JANETTE PRN Reason: Protocol Stop: 06/05/18 23:29 Last Admin: 06/01/18 08:59 Dose: 200 mls/hr Iron Sucrose 200 mg/ Sodium (Chloride) 110 mls @ 110 mls/hr IVPB DAILY [facility] Stop: 06/03/18 10:59 Mupirocin (Bactroban Ointment) 0 gm TOP Q8H [facility] Last Admin: 06/01/18 09:31 Dose: 1 applic [id number]-[id number]-Hpjy Ethyl Esters (Lovaza) 2 gm PO BID [facility] Last Admin: 06/01/18 09:04 Dose: Not Given Pantoprazole Sodium (Protonix Ec Tab) 40 mg PO 0600 [facility] Last Admin: 06/01/18 05:40 Dose: 40 mg Polyethylene Glycol (Miralax) 17 gm PO BID [facility] Last Admin: 06/01/18 09:04 Dose: Not Given Sennosides (Senokot Tab) 17.2 mg PO HS [facility] Last Admin: 05/31/18 22:03 Dose: 17.2 mg Tramadol HCl (Ultram) 50 mg PO Q12 PRN PRN Reason: Pain, severe (8-10) Last Admin: 06/01/18 08:59 Dose: 50 mg - Labs Labs: 06/01/18 07:00 06/01/18 07:00 PT 15.2 SECONDS (9.4-12.5) H 06/01/18 07:00 INR 1.31 (0.93-1.08) H 06/01/18 07:00 APTT 31.2 Seconds (25.1-36.5) 06/01/18 07:00 - Constitutional Appears: Non-toxic, No Acute Distress - Head Exam Head Exam: ATRAUMATIC, NORMOCEPHALIC - Eye Exam Eye Exam: EOMI, PERRL. absent: Conjunctival injection, Nystagmus, Scleral icterus Pupil Exam: NORMAL ACCOMODATION, PERRL. absent: Irregular, Miosis, Unequal - ENT Exam ENT Exam: Mucous Membranes Moist - Neck Exam Neck Exam: Full ROM - Respiratory Exam Respiratory Exam: Clear to Ausculation Bilateral, NORMAL BREATHING PATTERN. absent: Accessory Muscle Use, Rales, Rhonchi, Wheezes, Stridor - Cardiovascular Exam Cardiovascular Exam: RRR, +S1, +S2. absent: Murmur - GI/Abdominal Exam GI & Abdominal Exam: Distended (mild, improved from yesterday), Soft, Normal Bowel Sounds. absent: Firm, Guarding, Rigid, Tenderness, Hypoactive Bowel Sounds, Mass, Organomegaly, Rebound - Extremities Exam Extremities Exam: Normal Inspection. absent: Calf Tenderness, Pedal Edema - Back Exam Back Exam: muscle spasm, NORMAL INSPECTION, paraspinal tenderness, tenderness. absent: CVA tenderness (L), CVA tenderness (R), vertebral tenderness Additional comments: + lumbar area tender/muscle spasm - Neurological Exam Neurological Exam: Alert, Awake, CN II-XII Intact, Oriented x3. absent: Motor Sensory Deficit Neuro motor strength exam: Left Upper Extremity: 5, Right Upper Extremity: 5, Left Lower Extremity: 5, Right Lower Extremity: 5 - Psychiatric Exam Psychiatric exam: Normal Affect, Normal Mood - Skin Skin Exam: Dry, Normal Color, Warm Assessment and Plan - Assessment and Plan (Free Text) Assessment: 82 year old female with PMH COPD, asthma, HTN, and TIA, [place] [facility] [place], received IV zyvox. Patient then transferred to TCU , developed leukocytosis, low grade temp with severe back pain, found to be hypotensive, bradycardic likely medication induced (Zanaflex, morphine). Patient also found to have a drop in Hgb, scheduled for EGD today. Patient also scheduled for I&D/washout tomorrow at 10:[address] Queen: Mild hypotension: 2/2 drug induced (morphine, zanaflex) vs dehydration vs sepsis - improved - s/p fluid bolus 250 ml NS - NS @80 - UA positive for mild infection, however patient asymptomatic - Blood cultures NTD, wound culture from previous adm negative - procal 0.27 - tylenol prn pain MAXIMILIANO: 2/2 postrenal (urinary retention 2/2 morphine induced) - BUN/Cr 11.3 - Cr 1.5 (baseline 0.9) in ED - improved to 1.2 with gentle hydration, straight cath - morphine discontinued - bladder scan showed 450 cc this AM - monitor Hyponatremia: 2/2 dehydration - resolved - NS @ 80. will cut down on fluids once patient resumes regular diet (patient is NPO today due to EGD) - monitor Low back pain: - Lumbar x ray neg - CT abd pelvis neg for bleed/collection - Lumbar CT shows L4-L5 moderate disc bulge - Neurology consulted. f.u recs - given decadron 10 mg IV in TCU - tylenol prn pain - PT/OT eval/therapy Right arm thrombophlebitis with superimposed cellulitis: - Extremity u/s of right arm: shows acute superficial thrombophlebitis of left basilic vein above the elbow. No DVT. - CAT upper extremity showed cellulitis in antecubital fossa. - afebrile, no leukocytosis - Elbow xray (05/19) was negative - ID consulted. F/u recs - On Zyvox Day 8 - Bactroban ointment - blood cultures NTD, procal 0.27 - UA pos for infection, however, patient is asymptomatic. Anemia: likely ACD and iron deficiency anemia - MCV 82.4 - stool occult and rectal exam in ED negative - GI consulted. appreciate recs. Scheduled for EGD today. F/u results. - given IV iron - no overt signs of bleeding - type and screen - monitor Constipation: - CAT scan showed bowels filled with stools - miralax, given dulcolax suppository - monitor Hypercholesterolemia: - Continue with lovaza, lipitor Hx of Hypertension: - Hold home Amlodipine - monitor BP History of TIA - hold ASA, plavix in setting of OR tomorrow History of COPD and Asthma: - Duonebs GI/DVT prophylaxis - Protonix - heparin sq - held due to OR Upon discharge, patient will follow up with Dr Almonte. Case seen and discussed with Dr Amezcua. Bindu Hagan, PGY2
[2018-06-01] MEDS: Lidocaine 5% Patch TD SCH (11:27)
[2018-06-01] MEDS ORDERED: Propofol 10 mg/ml Inj (20 ML) ONE (13:46)
[2018-06-01] MEDS ORDERED: Sodium Chloride 0.9% 1,000 ML IV SCH (14:00)
--- NOTE | 2018-06-01 16:18 | CP.PCM.PN ---
Subjective - Date & Time of Evaluation Date of Evaluation: 06/01/18 Time of Evaluation: 10:30 - Subjective Subjective: Pt was seen and examined this morning at bedside. She states that she had no acute overnight events. Though continues to admit to back pain, she denies fever , chills, nausea, vomiting, abdominal pain, or lightheadedness. She has no additional acute complaints at this time. Objective - Vital Signs/Intake and Output Vital Signs (last 24 hours): Temp Pulse Resp BP Pulse Ox 98.4 F 72 16 128/64 98 06/01/18 14:45 06/01/18 14:45 06/01/18 14:45 06/01/18 14:45 06/01/18 14:45 Intake and Output: 06/01/18 06/01/18 06:59 18:59 Intake Total 1140 800 Output Total 200 Balance 940 800 - Medications Medications: Current Medications Albuterol/Ipratropium (Duoneb 3 Mg/0.5 Mg (3 Ml) Ud) 3 ml IH Q6H [facility] Last Admin: 06/01/18 13:10 Dose: Not Given Arformoterol Tartrate (Brovana) 15 mcg IH [id number] [facility] Last Admin: 06/01/18 07:20 Dose: 15 mcg Atorvastatin Calcium (Lipitor) 40 mg PO DAILY [facility] Last Admin: 06/01/18 08:59 Dose: 40 mg Cyclobenzaprine HCl (Flexeril) 5 mg PO TID [facility] Last Admin: 06/01/18 13:11 Dose: Not Given Docusate Sodium (Colace) 100 mg PO TID [facility] Last Admin: 06/01/18 13:11 Dose: Not Given Heparin Sodium (Porcine) (Heparin) 5,000 units SC Q8 JANETTE PRN Reason: Protocol Last Admin: 05/31/18 23:25 Dose: Not Given Sodium Chloride (Sodium Chloride 0.9%) 1,000 mls @ 80 mls/hr IV .[id number] [facility] Last Admin: 06/01/18 04:00 Dose: 80 mls/hr Linezolid (Zyvox 600mg/300ml D5w) 600 mg in 300 mls @ 200 mls/hr IVPB Q12 JANETTE PRN Reason: Protocol Stop: 06/05/18 23:29 Last Admin: 06/01/18 08:59 Dose: 200 mls/hr Iron Sucrose 200 mg/ Sodium (Chloride) 110 mls @ 110 mls/hr IVPB DAILY [facility] Stop: 06/03/18 10:59 Cefepime HCl (Maxipime 1gm) 1 gm in 100 mls @ 100 mls/hr IVPB Q12 JANETTE PRN Reason: Protocol Stop: 06/09/18 22:01 Lidocaine (Lidoderm) 2 ea TD DAILY [facility] Last Admin: 06/01/18 11:27 Dose: 2 ea Mupirocin (Bactroban Ointment) 0 gm TOP Q8H [facility] Last Admin: 06/01/18 09:31 Dose: 1 applic [id number] Ethyl Esters (Lovaza) 2 gm PO BID [facility] Last Admin: 06/01/18 09:04 Dose: Not Given Pantoprazole Sodium (Protonix Ec Tab) 40 mg PO 0600 [facility] Last Admin: 06/01/18 05:40 Dose: 40 mg Polyethylene Glycol (Miralax) 17 gm PO BID [facility] Last Admin: 06/01/18 09:04 Dose: Not Given Sennosides (Senokot Tab) 17.2 mg PO HS [facility] Last Admin: 05/31/18 22:03 Dose: 17.2 mg Tramadol HCl (Ultram) 50 mg PO Q12 PRN PRN Reason: Pain, severe (8-10) Last Admin: 06/01/18 08:59 Dose: 50 mg - Labs Labs: 06/01/18 07:00 06/01/18 07:00 PT 15.2 SECONDS (9.4-12.5) H 06/01/18 07:00 INR 1.31 (0.93-1.08) H 06/01/18 07:00 APTT 31.2 Seconds (25.1-36.5) 06/01/18 07:00 - Constitutional Appears: Well, Non-toxic, No Acute Distress - Head Exam Head Exam: ATRAUMATIC, NORMOCEPHALIC - Eye Exam Eye Exam: EOMI, Normal appearance - Respiratory Exam Respiratory Exam: Clear to Ausculation Bilateral, NORMAL BREATHING PATTERN. absent: Accessory Muscle Use, Respiratory Distress - Cardiovascular Exam Cardiovascular Exam: Bradycardia, +S1, +S2 - GI/Abdominal Exam GI & Abdominal Exam: Soft, Normal Bowel Sounds. absent: Distended, Firm, Guarding, Rigid, Tenderness - Extremities Exam Additional comments: right antecubital fossa with a small area of erythema without fluctuance - Neurological Exam Neurological Exam: Alert, Awake, CN II-XII Intact, Oriented x3 - Psychiatric Exam Psychiatric exam: Normal Affect, Normal Mood - Skin Skin Exam: Dry, Intact, Normal Color, Warm Assessment and Plan - Assessment and Plan (Free Text) Assessment: Pt is a 82 yo F with right antecubital cellulitis due to thrombophlebitis, possible infection. Plan: - OR tomorrow for I&D of right antecubital cellulitis, pt consented and booked. Risks/benefits/alternatives of the procedure were explained to the pt - NPO tonight at midnight - IVF - Coags tomorrow AM - Hold Lovenox tomorrow AM - Cont to hold plavix and ASA - Seen and discussed with Dr. Queen
--- NOTE | 2018-06-01 16:55 | CON ---
DATE: 06/01/2018 HISTORY OF PRESENT ILLNESS: This is an 82-year-old white female with past medical history of COPD and history of right breast cancer status post lumpectomies and the patient presented to the hospital with a drop of hemoglobin and was hypotensive, and the patient also had a low back pain, and called to evaluate the patient. PAST MEDICAL HISTORY: TIA, COPD, and right breast cancer with mastectomy. ALLERGIES: IODINE. HOME MEDICATIONS: Aspirin, Plavix and Norvasc. REVIEW OF SYSTEMS: A 10-point review of system was negative. PHYSICAL EXAMINATION VITAL SIGNS: Blood pressure 122/59. HEENT: Normocephalic and atraumatic. NECK: Supple. NEUROLOGIC: Alert, awake, and oriented to self and place. Cranial nerves II through XII are tested. Pupils reactive. EOM intact. Visual byrd full. Spontaneous movement of all the extremities noted. Deep tendon reflexes 1+. Both plantars are downgoing. Sensory appears intact. Cerebellar and gait deferred. IMPRESSION AND PLAN: Syncope secondary to drop of hemoglobin and the patient is getting blood transfusion and going to get a GI workup endoscopy today. For low back pain, she is getting Lidoderm patch and heat and tolerating it well. Workup in progress. Continue present management. We will follow up. Chucho Raymond MD
[2018-06-01] MEDS ORDERED: DiphenhydrAMINE 50 mg/ml Inj IM ONE (18:19)
--- NOTE | 2018-06-01 22:03 | HP ---
DATE OF EXAM: 06/01/2018 HISTORY OF PRESENT ILLNESS: The patient is an 82-year-old female transferred and discharged from Transitional Care Unit yesterday because of hypotension, severe back pain and decreasing hemoglobin and hematocrit. The patient was evaluated in the emergency room yesterday and then underwent multiple diagnostic test and then the patient was admitted to remote telemetry. CODE STATUS: Full code. ALLERGIES: IODINE AND IODINE CONTAINING PRODUCTS. HEIGHT: 5 feet 2 inches. WEIGHT: 116. BMI: 21.2. PAST MEDICAL HISTORY AND PAST SURGICAL HISTORY: As per the history and physical examination of 05/24/2018 and discharge summary of 05/31/2018. The patient is now initially seen in the emergency room. Then, the patient is now seen today in room 372, bed 1. The patient is now seen sitting up in the bed. The patient is awake, responsive, alert. The patient denies any back pain. Overnight nurse's notes were reviewed. The patient had urinary retention almost up to 500 mL of urine requiring straight catheterization. The patient is still constipated. The patient was seen sitting up in the bed. The patient is completely alert, awake, responsive. Reports significant improvement of her symptoms. PHYSICAL EXAMINATION: VITAL SIGNS: T-max in the last 12-24 hours 98; heart rate 62, 61, 65, telemetry shows sinus rhythm; blood pressure is 98/54, 102/54, 122/59, 118/63, 114/59, 115/58; respiration 20; O2 sat 96%. HEENT: Head: Normocephalic, atraumatic. HEENT examination shows pinkish pale conjunctivae. Dry oral mucosa. No neck rigidity. CHEST: Kyphosis. LUNGS: Shows no rales, crackles or wheezing. CARDIOVASCULAR: S1, S2, regular rhythm. No audible murmur, gallop or rub noted. ABDOMEN: Soft, less tympanic, less distended. Positive bowel sound. No costovertebral angle tenderness. Positive lumbar spine tenderness noted. GENITALIA: Female. RECTAL: Deferred. EXTREMITIES: Shows no pitting edema, no calf tenderness, no Homans' signs. NEUROLOGICAL: The patient is alert, awake, responsive. She is able to move upper and lower extremity without assistance. DIAGNOSTICS: From 05/31/2018 and 06/01/2018 reviewed. WBC count is down to 10.2 from 13.6, hemoglobin and hematocrit 10 and 30 and 10.3 and 31, platelet 326, 327. Granulocytes 89% and 92%. PT/PTT 16.5 and 34.2 with an INR of 1.4 yesterday. Today PT is 15.2 and INR 1.31. Chemistry was reviewed. Sodium today is 132, potassium 4.2, chloride 98, CO2 24, anion gap 14, BUN 23, creatinine 1.2, yesterday's creatinine was 1.5. GFR is 52, glucose 153, lactic acid 1, calcium 8.4, iron 23, TIBC 251, iron saturation 9. Troponin all three sets are negative. Urinalysis, trace protein, trace blood, small leukocyte, few bacteria. Blood type B+ve. The patient's CAT scan of the abdomen and pelvis, CT head, LS spine, CAT scan, chest x-ray all reviewed. EKG was reviewed. IMPRESSION: 1. Hypotension with a systolic blood pressure of 70s, responded to IV fluid bolus and IV fluid resuscitation. 2. Anemia with decreasing hemoglobin and hematocrit. 3. Acute kidney injury (resolving). 4. Transient hyponatremia. 5. Low back pain. 6. Right antecubital area cellulitis versus abscess and right basilic vein thrombophlebitis and thrombosis. 7. Iron-deficiency normocytic anemia. 8. History of hypertension. 9. History of chronic obstructive pulmonary disease. 10. Leukocytosis with granulocytosis. 11. Mild coagulopathy. 12. Mild prerenal kidney injury. 13. Trace proteinuria. 14. Microscopic hematuria, pyuria, bacteriuria. 15. Fecal retention, fecal stasis and constipation. 16. Urinary retention with distended urinary bladder. 17. Possible morphine and Zanaflex-induced lethargy (resolved). 18. L4-L5 disk bulge and facet arthropathy without stenosis. 19. Right antecubital area basilic vein thrombosis, thrombophlebitis and cellulitis very slow resolving with possible underlying abscess. 20. History of history of right breast carcinoma status, history of lumpectomy, history of transient ischemic attack. 21. Hyperlipidemia, hypertriglyceridemia. PLAN AT THIS TIME: The patient has been admitted to inpatient unit on remote tele. The patient has been ordered repeat CMP and CBC for the morning. Blood and urine cultures are ordered and done, results are pending. CURRENT CONSULTATION: Gastroenterology, Infectious Disease, Neurology, Surgery. CURRENT MEDICATIONS: Bactroban cream to the affected area of the right antecubital area three times a day, Brovana nebulizer 15 mcg twice a day, Colace 100 mg three times a day. The patient is also ordered Dulcolax suppository x1 stat, DuoNeb nebulizer every 6 hours, Flexeril 5 mg three times a day, heparin 5000 subcu every 8, Venofer 200 mg IV daily x3 doses, Lipitor 40 mg daily, Lovaza 2 g twice a day, MiraLax 17 g twice a day, Protonix 40 mg daily, Senokot 17.2 mg at bedtime, normal saline 0.9 at 80 mL an hour, Ultram 50 mg every 12 p.r.n., Zyvox 600 mg IV every 12. MRI of the lumbar spine ordered, results are pending. The patient is on n.p.o. and liquid diet for possible endoscopy today. The patient has been ordered bladder scan every 6 hours to be straight cath for any residual. Bladder scan has been ordered and straight cath if residual greater than or equal to 100 mL. The patient will be ordered physical therapy, occupational therapy and ambulation therapy, out of bed, AMINA stockings, SCDs, etc. At present, the patient's further management will be dependent upon the patient's clinical condition, hemodynamic status and as per the patient's response to therapeutic intervention, as per the patient's diagnostic test results and as per recommendation by all the physicians involved in the care of the patient. Dictated and electronically signed, not read. Gregg Amezcua MD
[2018-06-01] MEDS: Cefepime 1gm in NS 100ml 1 GM/100 ML BAG IVPB SCH (23:01)
[2018-06-02] MEDS: Mupirocin 2% Ointment 15 GM TUBE TOP SCH ×3 (00:25→15:37)
[2018-06-02] MEDS: Albuterol-Ipratrop 3 mg / 0.5 (3 ml) UD IH SCH ×3 (01:03→20:09)
[2018-06-02] MEDS: Pantoprazole 40 mg EC Tab PO SCH (06:21)
--- NOTE | 2018-06-02 06:27 | CON ---
DATE: 06/01/2018 LOCATION: Patient is in room 372, bed 1. CHIEF COMPLAINT: Right arm erythema times several weeks. HISTORY OF PRESENT ILLNESS: This is an 82-year-old female with chronic obstructive lung disease, hypertension, TIA, history of basilic vein thrombophlebitis, was treated with Zyvox, history of right breast cancer and patient has history of right lumpectomy and hysterectomy who was recently in the hospital and was discharged, was given antibiotics; however, the right arm still is painful and erythematous with low-grade fevers. REVIEW OF SYSTEMS: A 12-point review of systems is performed. There is no chest pain. There is significant back pain. No headaches or blurred vision. No diarrhea or constipation. No bright red blood per rectum. No new joint pain. PAST MEDICAL HISTORY: Significant for chronic obstructive lung disease, hypertension, TIA, and recent bisiliac vein thrombophlebitis status post treatment with Zyvox and right breast cancer. PAST SURGICAL HISTORY: Significant for right lumpectomy, hysterectomy. ALLERGIES: PATIENT IS ALLERGIC TO IODINE. MEDICATIONS: At home are reviewed and include Protonix, omega-3, Lovenox, Plavix, and was given Lipitor. PHYSICAL EXAMINATION: VITAL SIGNS: Patient's temperature is 98, although at home, it was over 100 and blood pressure is 101/50, it was as low as 98/54; respiratory rate of 20; and heart rate of 62. HEENT: Examination of HEENT is unremarkable. NECK: Supple. LUNGS: Have decreased breath sounds. HEART: Normal S1, S2. ABDOMEN: Soft and nontender. EXTREMITIES: Examination of the right arm, significant tenderness in the right arm basilic veins. No discharge. LABORATORY DATA: Reveals the patient's white count is elevated at 13,600, hemoglobin of 10, and the platelets of 326. BUN of 17, creatinine of 1.5, and procalcitonin 0.27. Urinalysis is noted. Microbiology reveals a gram-negative araceli in the urine. ASSESSMENT AND PLAN: This is an 82-year-old female with chronic obstructive lung disease, hypertension, and transient ischemic attack, who has now presented with a right arm basilic vein thrombophlebitis and cellulitis with leukocytosis and a Gram-negative araceli urinary tract infection, back pain and MRI of the spine Gram-negative rods. Surgical evaluation for thrombectomy and on Zyvox. I will add Maxipime. Check the lower cultures. Patient surgery on further recommendations. Preet Flores MD
[2018-06-02 07:21] LABS: BASO # 0.02 K/mm3 (0.0-2.0); BASO % 0.2 % (0.0-3.0); EOS % 0.3 % (1.5-5.0); GRAN # 7.03 (1.4-6.5); GRAN % 75.1 % (50.0-68.0); HEMOGLOBIN 10.7 g/dL (12.0-16.0); LYMPH # 1.6 (1.2-3.4); LYMPH % 17.1 % (22.0-35.0); MEAN CELL VOLUME 82.9 fl (80.0-105.0); MEAN CORPUSCULAR HGB CONC 32.5 g/dl (31.0-37.0); MEAN PLATELET VOLUME 8.7 fl (7.0-11.0); MONO # 0.7 (0.1-0.6); MONO % 7.3 % (1.0-6.0); RBC 3.97 10^6/uL (3.5-6.1); WHITE BLOOD COUNT 9.4 10^3/ul (4.5-11.0)
[2018-06-02 07:27] LABS: INR 1.23 (0.93-1.08); PARTIAL THROMBOPLASTIN TIME 32.2 Seconds (25.1-36.5); PROTHROMBIN TIME 14.2 SECONDS (9.4-12.5)
[2018-06-02 07:39] LABS: ALB/GLOB RATIO 0.9 (1.1-1.8); ALBUMIN 3.2 g/dL (3.0-4.8); CALCIUM 8.9 mg/dL (8.4-10.5)
[2018-06-02] MEDS: Arformoterol 15 mcg/2 ml Inh Sol IH SCH ×2 (07:43→20:09)
[2018-06-02] MEDS ORDERED: Sodium Chloride 0.9% 1,000 ML IV SCH ×2 (08:47→12:30)
[2018-06-02] MEDS: Omega-3-Acid Ethyl Esters 1 GM Cap PO SCH ×2 (09:29→17:51)
[2018-06-02] MEDS: POLYETHYLENE GLYCOL 3350 17 GM/Dose PACKET PO SCH ×2 (09:29→17:51)
[2018-06-02] MEDS: Cefepime 1gm in NS 100ml 1 GM/100 ML BAG IVPB SCH ×2 (09:38→21:54)
[2018-06-02] MEDS: Lidocaine 5% Patch TD SCH (09:38)
--- NOTE | 2018-06-02 09:57 | CP.PCM.PN ---
Subjective - Date & Time of Evaluation Date of Evaluation: 06/02/18 Time of Evaluation: 09:46 - Subjective Subjective: Bindu Hagan, PGY2, Medicine Progress Note: Patient seen and examined at bedside. No acute events overnight. Patient had 1- 2 BM yesterday. Patient reports that her back pain is much improved, is ambulating to the bathroom. Denies nausea, vomiting, fevers, chills, cp, sob, abdominal pain, leg swelling. Patient scheduled for I&D today with surgery today. Objective - Vital Signs/Intake and Output Vital Signs (last 24 hours): Temp Pulse Resp BP Pulse Ox 98.7 F 67 20 148/79 95 06/01/18 16:40 06/02/18 06:00 06/01/18 16:40 06/01/18 16:40 06/01/18 16:40 Intake and Output: 06/02/18 06/02/18 06:59 18:59 Output Total 400 Balance -400 - Medications Medications: Current Medications Albuterol/Ipratropium (Duoneb 3 Mg/0.5 Mg (3 Ml) Ud) 3 ml IH Q6H [facility] Last Admin: 06/02/18 08:30 Dose: Not Given Arformoterol Tartrate (Brovana) 15 mcg IH [id number] [facility] Last Admin: 06/02/18 07:43 Dose: Not Given Atorvastatin Calcium (Lipitor) 40 mg PO DAILY [facility] Last Admin: 06/02/18 09:38 Dose: 40 mg Cyclobenzaprine HCl (Flexeril) 5 mg PO TID [facility] Last Admin: 06/02/18 09:28 Dose: Not Given Docusate Sodium (Colace) 100 mg PO TID [facility] Last Admin: 06/02/18 09:28 Dose: Not Given Heparin Sodium (Porcine) (Heparin) 5,000 units SC Q8 JANETTE PRN Reason: Protocol Last Admin: 05/31/18 23:25 Dose: Not Given Linezolid (Zyvox 600mg/300ml D5w) 600 mg in 300 mls @ 200 mls/hr IVPB Q12 JANETTE PRN Reason: Protocol Stop: 06/05/18 23:29 Last Admin: 06/01/18 22:57 Dose: 200 mls/hr Iron Sucrose 200 mg/ Sodium (Chloride) 110 mls @ 110 mls/hr IVPB DAILY [facility] Stop: 06/03/18 10:59 Last Admin: 06/02/18 09:25 Dose: 110 mls/hr Cefepime HCl (Maxipime 1gm) 1 gm in 100 mls @ 100 mls/hr IVPB Q12 JANETTE PRN Reason: Protocol Stop: 06/09/18 22:01 Last Admin: 06/02/18 09:38 Dose: 100 mls/hr Sodium Chloride (Sodium Chloride 0.9%) 1,000 mls @ 60 mls/hr IV .[id number] [facility] Last Admin: 06/02/18 09:30 Dose: 60 mls/hr Lidocaine (Lidoderm) 2 ea TD DAILY [facility] Last Admin: 06/02/18 09:38 Dose: 2 ea Mupirocin (Bactroban Ointment) 0 gm TOP Q8H [facility] Last Admin: 06/02/18 09:28 Dose: 1 applic Hrros-2-Efwr Ethyl Esters (Lovaza) 2 gm PO BID [facility] Last Admin: 06/02/18 09:29 Dose: Not Given Pantoprazole Sodium (Protonix Ec Tab) 40 mg PO 0600 [facility] Last Admin: 06/02/18 06:21 Dose: 40 mg Polyethylene Glycol (Miralax) 17 gm PO BID [facility] Last Admin: 06/02/18 09:29 Dose: Not Given Sennosides (Senokot Tab) 17.2 mg PO HS [facility] Last Admin: 06/01/18 22:55 Dose: 17.2 mg Tramadol HCl (Ultram) 50 mg PO Q12 PRN PRN Reason: Pain, severe (8-10) Last Admin: 06/01/18 08:59 Dose: 50 mg - Labs Labs: 06/02/18 06:30 06/02/18 06:30 PT 14.2 SECONDS (9.4-12.5) H 06/02/18 06:30 INR 1.23 (0.93-1.08) H 06/02/18 06:30 APTT 32.2 Seconds (25.1-36.5) 06/02/18 06:30 - Additional Findings Additional findings: - Constitutional Appears: Non-toxic, No Acute Distress - Head Exam Head Exam: ATRAUMATIC, NORMOCEPHALIC - Eye Exam Eye Exam: EOMI, PERRL. absent: Conjunctival injection, Nystagmus, Scleral icterus Pupil Exam: NORMAL ACCOMODATION, PERRL. absent: Irregular, Miosis, Unequal - ENT Exam ENT Exam: Mucous Membranes Moist - Neck Exam Neck Exam: Full ROM - Respiratory Exam Respiratory Exam: Clear to Ausculation Bilateral, NORMAL BREATHING PATTERN. absent: Accessory Muscle Use, Rales, Rhonchi, Wheezes, Stridor - Cardiovascular Exam Cardiovascular Exam: RRR, +S1, +S2. absent: Murmur - GI/Abdominal Exam GI & Abdominal Exam: Distended (mild, improved from yesterday), Soft, Normal Bowel Sounds. absent: Firm, Guarding, Rigid, Tenderness, Hypoactive Bowel Sounds, Mass, Organomegaly, Rebound - Extremities Exam Extremities Exam: Normal Inspection. absent: Calf Tenderness, Pedal Edema - Back Exam Back Exam: muscle spasm, NORMAL INSPECTION, paraspinal tenderness, tenderness. absent: CVA tenderness (L), CVA tenderness (R), vertebral tenderness Additional comments: + lumbar area tender/muscle spasm, improved - Neurological Exam Neurological Exam: Alert, Awake, CN II-XII Intact, Oriented x3. absent: Motor Sensory Deficit Neuro motor strength exam: Left Upper Extremity: 5, Right Upper Extremity: 5, Left Lower Extremity: 5, Right Lower Extremity: 5 - Psychiatric Exam Psychiatric exam: Normal Affect, Normal Mood - Skin Skin Exam: Dry, Normal Color, Warm Assessment and Plan - Assessment and Plan (Free Text) Assessment: 82 year old female with PMH COPD, asthma, HTN, and TIA, initially presented to [facility] for right arm cellulitis, received IV zyvox. Patient then transferred to TCU , developed leukocytosis, low grade temp with severe back pain, found to be hypotensive, bradycardic likely medication induced (Zanaflex, morphine). Patient also found to have a mild drop in Hgb, EGD showed nonbleeding ulcers and gastritis, likely colonoscopy on Thursday. Patient scheduled for I&D of right thrombophlebitis today: Right arm thrombophlebitis with superimposed cellulitis: - Extremity u/s of right arm: shows acute superficial thrombophlebitis of left basilic vein above the elbow. No DVT. - CAT upper extremity showed cellulitis in antecubital fossa. - afebrile, no leukocytosis - Elbow xray (7/4) was negative - ID consulted. F/u recs - On Zyvox - Bactroban ointment - blood cultures NTD, procal 0.27 UTI: - UA positive for infection, patient retaining urine - Urine culture grew Klebseilla pneumonia, pansensitive except Ampicillin however patient asymptomatic - ID on board. appreciate recs - On Cefepime Mild hypotension: 2/2 drug induced (morphine, zanaflex) vs dehydration vs sepsis - resolved - s/p fluid bolus 250 ml NS - NS reduced to 60 ml/h as pt is NPO. will discontinue once resumes soft regular diet after surgery. - Blood cultures NTD, wound culture from previous adm negative - procal 0.27 MAXIMILIANO: 2/2 postrenal (urinary retention 2/2 morphine induced) - BUN/Cr 11.3 - Cr 1.5 (baseline 0.9) in ED - improved this AM to 1.1 - monitor Hyponatremia: 2/2 dehydration - resolved - monitor Low back pain: - Lumbar x ray neg - CT abd pelvis neg for bleed/collection - Lumbar CT shows L4-L5 moderate disc bulge - Neurology consulted. f.u recs - given decadron 10 mg IV in TCU - tylenol prn pain - tramadol prn, flexeril - PT/OT eval/therapy Anemia: likely ACD and iron deficiency anemia - MCV 82.4 - stool occult and rectal exam in ED negative - GI consulted. appreciate recs. - EGD showed LA grade B reflux esophagitis, r/o Glaser's. Non-bleeding gastric ulcers with a clean base (forest class III). No biopsy since patient on ASA, plavix. Will perform colonoscopy. Repeat upper EGD in few weeks for biopsy and check for bleeding when patient off plavix. - given IV iron - no overt signs of bleeding - type and screen - monitor Constipation: - CAT scan showed bowels filled with stools - miralax, given dulcolax suppository - monitor Hypercholesterolemia: - Continue with lovaza, lipitor Hx of Hypertension: - Hold home Amlodipine - monitor BP History of TIA - hold ASA, plavix in setting of OR today History of COPD and Asthma: - Duonebs GI/DVT prophylaxis - Protonix - heparin sq - held due to OR Upon discharge, patient will follow up with Dr Almonte. Case seen and discussed with Dr Amezcua. Bindu Hagan, PGY2
--- NOTE | 2018-06-02 10:22 | CP.PCM.PN ---
<Mark Hedrick - Last Filed: 06/02/18 10:53> Subjective - Date & Time of Evaluation Date of Evaluation: 06/02/18 Time of Evaluation: 08:20 - Subjective Subjective: GI Progress Note for Dr. Francisco Hedrick, PGY-3 IM Patient seen and examined at bedside. No acute events overnight. S/p EGD yesterday, found to have LA Grade B Esophagitis (r/o Glaser's) and several [place] Class III gastric ulcers (linear/superficial ulcers with clean bases). No acute sources of bleeding identified. No acute complaints today. Objective - Vital Signs/Intake and Output Vital Signs (last 24 hours): Temp Pulse Resp BP Pulse Ox 98.7 F 67 20 148/79 95 06/01/18 16:40 06/02/18 06:00 06/01/18 16:40 06/01/18 16:40 06/01/18 16:40 Intake and Output: 06/02/18 06/02/18 06:59 18:59 Output Total 400 Balance -400 - Medications Medications: Current Medications Albuterol/Ipratropium (Duoneb 3 Mg/0.5 Mg (3 Ml) Ud) 3 ml IH Q6H [facility] Last Admin: 06/02/18 08:30 Dose: Not Given Arformoterol Tartrate (Brovana) 15 mcg IH [id number] [facility] Last Admin: 06/02/18 07:43 Dose: Not Given Atorvastatin Calcium (Lipitor) 40 mg PO DAILY [facility] Last Admin: 06/02/18 09:38 Dose: 40 mg Cyclobenzaprine HCl (Flexeril) 5 mg PO TID [facility] Last Admin: 06/02/18 09:28 Dose: Not Given Docusate Sodium (Colace) 100 mg PO TID [facility] Last Admin: 06/02/18 09:28 Dose: Not Given Heparin Sodium (Porcine) (Heparin) 5,000 units SC Q8 JANETTE PRN Reason: Protocol Last Admin: 05/31/18 23:25 Dose: Not Given Linezolid (Zyvox 600mg/300ml D5w) 600 mg in 300 mls @ 200 mls/hr IVPB Q12 JANETTE PRN Reason: Protocol Stop: 06/05/18 23:29 Last Admin: 06/01/18 22:57 Dose: 200 mls/hr Iron Sucrose 200 mg/ Sodium (Chloride) 110 mls @ 110 mls/hr IVPB DAILY JANETTE Stop: 06/03/18 10:59 Last Admin: 06/02/18 09:25 Dose: 110 mls/hr Cefepime HCl (Maxipime 1gm) 1 gm in 100 mls @ 100 mls/hr IVPB Q12 JANETTE PRN Reason: Protocol Stop: 06/09/18 22:01 Last Admin: 06/02/18 09:38 Dose: 100 mls/hr Sodium Chloride (Sodium Chloride 0.9%) 1,000 mls @ 60 mls/hr IV .[id number] [facility] Last Admin: 06/02/18 09:30 Dose: 60 mls/hr Lidocaine (Lidoderm) 2 ea TD DAILY [facility] Last Admin: 06/02/18 09:38 Dose: 2 ea Mupirocin (Bactroban Ointment) 0 gm TOP Q8H [facility] Last Admin: 06/02/18 09:28 Dose: 1 applic [id number] Ethyl Esters (Lovaza) 2 gm PO BID [facility] Last Admin: 06/02/18 09:29 Dose: Not Given Pantoprazole Sodium (Protonix Ec Tab) 40 mg PO 0600 [facility] Last Admin: 06/02/18 06:21 Dose: 40 mg Polyethylene Glycol (Miralax) 17 gm PO BID [facility] Last Admin: 06/02/18 09:29 Dose: Not Given Sennosides (Senokot Tab) 17.2 mg PO HS [facility] Last Admin: 06/01/18 22:55 Dose: 17.2 mg Tramadol HCl (Ultram) 50 mg PO Q12 PRN PRN Reason: Pain, severe (8-10) Last Admin: 06/01/18 08:59 Dose: 50 mg - Labs Labs: 06/02/18 06:30 06/02/18 06:30 PT 14.2 SECONDS (9.4-12.5) H 06/02/18 06:30 INR 1.23 (0.93-1.08) H 06/02/18 06:30 APTT 32.2 Seconds (25.1-36.5) 06/02/18 06:30 - Additional Findings Additional findings: - Constitutional Appears: Non-toxic, No Acute Distress, Chronically Ill - Head Exam Head Exam: ATRAUMATIC, NORMAL INSPECTION, NORMOCEPHALIC - Eye Exam Eye Exam: EOMI, Normal appearance. absent: Conjunctival injection, Scleral icterus Pupil Exam: absent: Fixed, Irregular - ENT Exam ENT Exam: Mucous Membranes Moist - Neck Exam Neck exam: Positive for: Full Rom, Normal Inspection - Respiratory Exam Respiratory Exam: Clear to Auscultation Bilateral, NORMAL BREATHING PATTERN. absent: Accessory Muscle Use, Chest Wall Tenderness, Decreased Breath Sounds, Rales, Rhonchi, Wheezes, Respiratory Distress - Cardiovascular Exam Cardiovascular Exam: REGULAR RHYTHM, RRR, +S1, +S2. absent: Bradycardia, Tachycardia, Irregular Rhythm, JVD, +S4 - GI/Abdominal Exam GI & Abdominal Exam: Firm (firm to palpation, palpable loops of bowel, palpable (distended?) bladder extending past suprapubic region towards epigastric region) , Normal Bowel Sounds. absent: Diminished Bowel Sounds, Distended, Hyperactive Bowel Sounds, Hypoactive Bowel Sounds, Rigid, Soft, Tenderness - Rectal Exam Rectal Exam: Deferred (completed by ED staff immediately prior to exam, brown stool guiac negative, no reported masses by ED team) - Extremities Exam Extremities exam: Negative for: calf tenderness, normal capillary refill, pedal edema, tenderness No kait erythema or grossly edematous region appreciated on RUE - Back Exam No acute episodes of back pain during exam today, able to move onto side without issue - Neurological Exam Awake and alert, moving all extremities spontaneously, following all commands appropriately, motor appears grossly intact and equal bilaterally - Psychiatric Exam Psychiatric exam: Normal Affect, Normal Mood - Skin Skin Exam: Dry, Intact, Normal Color, Warm Additional comments: no appreciable erythema/edema/tenderness along skin of RUE Assessment and Plan - Assessment and Plan (Free Text) Assessment: This is a 82 yo F with PMH of COPD, asthma, TIA on plavix, HLD, and right breast cancer s/p lumpectomy who was sent from TCU to the ED due to acute onsent and persistence of low back pain x2 days and decrease in Hgb from 12 to 9.9 in the same interval. GI consulted for acute drop in Hgb, concerning for possible GI bleed. S/p EGD notable for clean-base ulcers and esophagitis, no acute bleeding identified. Plan: COPD/asthma Hx TIA, on plavix and Aspirin right breast cancer s/p lumpectomy acute Hgb drop from 12 to 9.9 in 48 hours acute onset intermittent severe back pain Ddx: GI bleed 2/2 dual antiplatelets vs dilutional effect from IV fluids -Rectal exam negative for bleeding, stool occult negative -CT abd/pelvis obtained, notable for constipation and distended full bladder with suspected urinary retention -Iron studies notable for low iron, and low-normal MCV with wide RDW consistent with Iron-deficiency anemia -Continue to monitor H&H -EGD obtained yesterday, notable for LA Grade B Esophagitis (r/o Glaser's) and several [place] Class III gastric ulcers (linear/superficial ulcers with clean bases); no acute bleeding observed, no biopsies obtained due to pt on plavix. No colonoscopy obtained, and as Hgb stable and hemodynamically stable, no urgent need for one at this time, can obtain with repeat EGD. If Hgb drops aggressively or patient becomes unstable, can reconsider -Patient will need repeat EGD in 6 weeks to reassess ulcers, can also obtain colonoscopy at that time. Discussed with patient, who is amenable to this plan. Instructed patient to make outpatient appointment, and to hold Plavix for 5 days prior to scheduled procedure. Seen, reviewed, and examined with attending, Dr Singh <Sanjana Singh V - Last Filed: 06/02/18 23:34> Objective - Vital Signs/Intake and Output Vital Signs (last 24 hours): Temp Pulse Resp BP Pulse Ox 97.7 F 77 20 141/80 97 06/02/18 18:00 06/02/18 18:00 06/02/18 18:00 06/02/18 18:00 06/02/18 18:00 Intake and Output: 06/02/18 06/03/18 18:59 06:59 Intake Total 360 Balance 360 - Medications Medications: Current Medications Albuterol/Ipratropium (Duoneb 3 Mg/0.5 Mg (3 Ml) Ud) 3 ml IH Q6H [facility] Last Admin: 06/02/18 20:09 Dose: Not Given Arformoterol Tartrate (Brovana) 15 mcg IH [id number] [facility] Last Admin: 06/02/18 20:09 Dose: Not Given Atorvastatin Calcium (Lipitor) 40 mg PO DAILY [facility] Last Admin: 06/02/18 09:38 Dose: 40 mg Cyclobenzaprine HCl (Flexeril) 5 mg PO TID [facility] Last Admin: 06/02/18 17:51 Dose: Not Given Docusate Sodium (Colace) 100 mg PO TID [facility] Last Admin: 06/02/18 17:51 Dose: Not Given Heparin Sodium (Porcine) (Heparin) 5,000 units SC Q8 JANETTE PRN Reason: Protocol Last Admin: 05/31/18 23:25 Dose: Not Given Linezolid (Zyvox 600mg/300ml D5w) 600 mg in 300 mls @ 200 mls/hr IVPB Q12 JANETTE PRN Reason: Protocol Stop: 06/05/18 23:29 Last Admin: 06/02/18 21:56 Dose: 200 mls/hr Iron Sucrose 200 mg/ Sodium (Chloride) 110 mls @ 110 mls/hr IVPB DAILY [facility] Stop: 06/03/18 10:59 Last Admin: 06/02/18 09:25 Dose: 110 mls/hr Cefepime HCl (Maxipime 1gm) 1 gm in 100 mls @ 100 mls/hr IVPB Q12 [facility] PRN Reason: Protocol Stop: 06/09/18 22:01 Last Admin: 06/02/18 21:54 Dose: 100 mls/hr Lidocaine (Lidoderm) 2 ea TD DAILY [facility] Last Admin: 06/02/18 09:38 Dose: 2 ea Mupirocin (Bactroban Ointment) 0 gm TOP Q8H [facility] Last Admin: 06/02/18 15:37 Dose: Not Given [id number] Ethyl Esters (Lovaza) 2 gm PO BID [facility] Last Admin: 06/02/18 17:51 Dose: Not Given Oxycodone/Acetaminophen (Percocet 5/325 Mg Tab) 1 tab PO Q4H PRN PRN Reason: Pain, moderate (4-7) Stop: 06/05/18 12:39 Last Admin: 06/02/18 21:59 Dose: 1 tab Pantoprazole Sodium (Protonix Ec Tab) 40 mg PO 0600 [facility] Last Admin: 06/02/18 06:21 Dose: 40 mg Polyethylene Glycol (Miralax) 17 gm PO BID [facility] Last Admin: 06/02/18 17:51 Dose: Not Given Sennosides (Senokot Tab) 17.2 mg PO HS [facility] Last Admin: 06/02/18 21:55 Dose: 17.2 mg - Labs Labs: 06/02/18 06:30 06/02/18 06:30 PT 14.2 SECONDS (9.4-12.5) H 06/02/18 06:30 INR 1.23 (0.93-1.08) H 06/02/18 06:30 APTT 32.2 Seconds (25.1-36.5) 06/02/18 06:30 Attending/Attestation - Attestation I have personally seen and examined this patient.: Yes I have fully participated in the care of the patient.: Yes I have reviewed all pertinent clinical information, including history, physical exam and plan: Yes Notes (Text): This is an addendum to GI progress report dictated by the Optical Coating Technician.The patient was seen and examined earlier. Medical records, lab studies, imagings were reviewed. Last 24 hours events reviewed. Agreed with the above treatment plan as outlined in Optical Coating Technician 's notes the with the addition of the following patient is comfortable Status post EGD revealing a small gastric ullinically appears benig but biopsies were not taken as the patient was on aspirin, and Plavix Presently off Plavix Would benefit from colonoscopy view of the significant anemia however patient also needs repeat EGD to evaluate healing of gastric ulcerand biopsy fu CT scan was reviewed We will consider scheduling repeat EGD and colonoscopy based on the clinical course and time Continue PPI 06/02/18 23:30
--- NOTE | 2018-06-02 10:40 | MRI ---
Date of service: 06/01/2018 PROCEDURE: MR LUMBAR SPINE WITHOUT CONTRAST HISTORY: low back pain COMPARISON: None available. TECHNIQUE: Multiecho multiplanar sequences were performed through the lumbar spine without the use of intravenous contrast. FINDINGS: Normal lumbar lordosis. Vertebral hemangiomas are seen at L1 and L2 Marrow signal unremarkable. Conus medullaris unremarkable at the level of T12 Paraspinal soft tissues are unremarkable. T12-L1: No disc herniation, spinal canal stenosis or neural foraminal narrowing. L1-2: No disc herniation, spinal canal stenosis or neural foraminal narrowing. L2-3: No disc herniation, spinal canal stenosis or neural foraminal narrowing. L3-4: No disc herniation, spinal canal stenosis or neural foraminal narrowing. L4-5: Severe facet arthropathy. Mild disc degeneration L5-S1: No disc herniation, spinal canal stenosis or neural foraminal narrowing. OTHER FINDINGS: The report concurs with the preliminary [facility] report IMPRESSION: Severe facet arthropathy at L4-5. The study is otherwise unremarkable
[2018-06-02] MEDS ORDERED: Etomidate 20 mg/10ml Inj IV ONE (11:03)
[2018-06-02] MEDS ORDERED: Bupivacaine 0.5% Inj(30mL) ONE (11:21)
[2018-06-02] MEDS ORDERED: Collagen Hemostat Powder ONE (11:35)
[2018-06-02] MEDS ORDERED: Bupivacaine 0.5% Inj(30mL) IJ ONE ×2 (11:42)
[2018-06-02] MEDS ORDERED: HYDROmorphone 0.5 mg/0.5 ml ISec IVP PRN (12:21)
[2018-06-02] MEDS ORDERED: HYDROmorphone 0.5 mg/0.5 ml ISec ONE (12:28)
--- NOTE | 2018-06-02 12:31 | PCM.SURG1 ---
Surgeon's Initial Post Op Note - Surgeon's Notes Surgeon: Dr. Queen Veterinary Practice Manager: Jen Fischer PGY1, Willy Calles MS3 Type of Anesthesia: MAC Pre-Operative Diagnosis: Basilic vein thrombophlebitis Operative Findings: Basilic vein thrombus, diffuse scar tissue Post-Operative Diagnosis: basilic vein thrombosis, diffuse scar tissue Operation Performed: Irrigation and drainage of the antecubital fossa, extensive scar tissue debridement, debridement of thrombosed basilic vein Specimen/Specimens Removed: Basilic vein culture, scar tissue culture, basilic vein specimen in formalin, scar tissue specimen in formalin Estimated Blood Loss: EBL {In ML}: 5 Blood Products Given: N/A Drains Used: No Drains (iodoform packing was placed in wound) Post-Op Condition: Fair Date of Surgery/Procedure: 06/02/18 Time of Surgery/Procedure: 10:40
[2018-06-02] MEDS ORDERED: Morphine 2 mg/ml ISec IVP PRN (12:38)
--- NOTE | 2018-06-02 14:36 | CP.PCM.PN ---
Subjective - Date & Time of Evaluation Date of Evaluation: 06/02/18 Time of Evaluation: 08:20 - Subjective Subjective: For surgery on right arm today, no fevers. Objective - Vital Signs/Intake and Output Vital Signs (last 24 hours): Temp Pulse Resp BP Pulse Ox 98.7 F 67 20 148/79 95 06/01/18 16:40 06/02/18 06:00 06/01/18 16:40 06/01/18 16:40 06/01/18 16:40 Intake and Output: 06/02/18 06/02/18 06:59 18:59 Output Total 400 Balance -400 - Medications Medications: Current Medications Albuterol/Ipratropium (Duoneb 3 Mg/0.5 Mg (3 Ml) Ud) 3 ml IH Q6H [facility] Last Admin: 06/02/18 08:30 Dose: Not Given Arformoterol Tartrate (Brovana) 15 mcg IH [id number] [facility] Last Admin: 06/02/18 07:43 Dose: Not Given Atorvastatin Calcium (Lipitor) 40 mg PO DAILY [facility] Last Admin: 06/02/18 09:38 Dose: 40 mg Cyclobenzaprine HCl (Flexeril) 5 mg PO TID [facility] Last Admin: 06/02/18 09:28 Dose: Not Given Docusate Sodium (Colace) 100 mg PO TID [facility] Last Admin: 06/02/18 09:28 Dose: Not Given Heparin Sodium (Porcine) (Heparin) 5,000 units SC Q8 [facility] PRN Reason: Protocol Last Admin: 05/31/18 23:25 Dose: Not Given Linezolid (Zyvox 600mg/300ml D5w) 600 mg in 300 mls @ 200 mls/hr IVPB Q12 [facility] PRN Reason: Protocol Stop: 06/05/18 23:29 Last Admin: 06/01/18 22:57 Dose: 200 mls/hr Iron Sucrose 200 mg/ Sodium (Chloride) 110 mls @ 110 mls/hr IVPB DAILY [facility] Stop: 06/03/18 10:59 Last Admin: 06/02/18 09:25 Dose: 110 mls/hr Cefepime HCl (Maxipime 1gm) 1 gm in 100 mls @ 100 mls/hr IVPB Q12 [facility] PRN Reason: Protocol Stop: 06/09/18 22:01 Last Admin: 06/02/18 09:38 Dose: 100 mls/hr Sodium Chloride (Sodium Chloride 0.9%) 1,000 mls @ 60 mls/hr IV .[id number] [facility] Last Admin: 06/02/18 09:30 Dose: 60 mls/hr Lidocaine (Lidoderm) 2 ea TD DAILY [facility] Last Admin: 06/02/18 09:38 Dose: 2 ea Mupirocin (Bactroban Ointment) 0 gm TOP Q8H [facility] Last Admin: 06/02/18 09:28 Dose: 1 applic [id number]-2-[id number] Ethyl Esters (Lovaza) 2 gm PO BID [facility] Last Admin: 06/02/18 09:29 Dose: Not Given Pantoprazole Sodium (Protonix Ec Tab) 40 mg PO 0600 [facility] Last Admin: 06/02/18 06:21 Dose: 40 mg Polyethylene Glycol (Miralax) 17 gm PO BID [facility] Last Admin: 06/02/18 09:29 Dose: Not Given Sennosides (Senokot Tab) 17.2 mg PO HS [facility] Last Admin: 06/01/18 22:55 Dose: 17.2 mg Tramadol HCl (Ultram) 50 mg PO Q12 PRN PRN Reason: Pain, severe (8-10) Last Admin: 06/01/18 08:59 Dose: 50 mg - Labs Labs: 06/02/18 06:30 06/02/18 06:30 PT 14.2 SECONDS (9.4-12.5) H 06/02/18 06:30 INR 1.23 (0.93-1.08) H 06/02/18 06:30 APTT 32.2 Seconds (25.1-36.5) 06/02/18 06:30 - Constitutional Appears: Chronically Ill - Head Exam Head Exam: NORMAL INSPECTION - Respiratory Exam Respiratory Exam: Decreased Breath Sounds - Cardiovascular Exam Cardiovascular Exam: +S1, +S2 - GI/Abdominal Exam GI & Abdominal Exam: Soft. absent: Tenderness - Extremities Exam Additional comments: right arm with dressings in place Assessment and Plan - Assessment and Plan (Free Text) Plan: Assessment Probable superimposed skin and skin structure infection with basilic vein thrombophlebitis over the right arm anetecubital area consider UTI with Klebsiella COPD HTN history of TIA Plan continue Zyvox and cefepime and will follow up results of the OR today discussed with Dr. Amezcua
[2018-06-02] MEDS: Oxycodone/Acetaminophen 5/325 mg Tab PO PRN ×2 (17:51→21:59)
[2018-06-02] MEDS: Linezolid 600 mg in D5W 300 ml 600 MG/300 ML BAG IVPB SCH (21:56)
[2018-06-03] MEDS: Albuterol-Ipratrop 3 mg / 0.5 (3 ml) UD IH SCH ×5 (01:59→19:41)
[2018-06-03] MEDS: Mupirocin 2% Ointment 15 GM TUBE TOP SCH ×4 (02:00→22:34)
[2018-06-03] MEDS: Pantoprazole 40 mg EC Tab PO SCH (06:14)
[2018-06-03 06:41] LABS: BASO # 0.03 K/mm3 (0.0-2.0); BASO % 0.5 % (0.0-3.0); EOS # 0.1 (0.0-0.7); EOS % 2.2 % (1.5-5.0); GRAN # 2.78 (1.4-6.5); LYMPH % 36.6 % (22.0-35.0); MEAN CELL VOLUME 85.4 fl (80.0-105.0); MEAN CORPUSCULAR HEMOGLOBIN 26.6 pg (25.0-35.0); MEAN CORPUSCULAR HGB CONC 31.2 g/dl (31.0-37.0); MEAN PLATELET VOLUME 8.5 fl (7.0-11.0); MONO # 0.5 (0.1-0.6); MONO % 9.7 % (1.0-6.0); RBC 3.76 10^6/uL (3.5-6.1); RED CELL DISTRIBUTION WIDTH 15.4 % (11.5-14.5); WHITE BLOOD COUNT 5.5 10^3/ul (4.5-11.0)
[2018-06-03 06:47] LABS: ALB/GLOB RATIO 0.8 (1.1-1.8); ALBUMIN 2.8 g/dL (3.0-4.8); CALCIUM 8.4 mg/dL (8.4-10.5)
[2018-06-03] MEDS: Arformoterol 15 mcg/2 ml Inh Sol IH SCH ×2 (08:00→19:41)
[2018-06-03] MEDS: Omega-3-Acid Ethyl Esters 1 GM Cap PO SCH ×2 (08:00→18:12)
--- NOTE | 2018-06-03 08:05 | PN ---
DATE: 06/02/2018 SUBJECTIVE: The patient is seen lying in the bed. The patient is comfortable, awake. The patient reports significant improvement of the back pain. The patient also denies constipation and difficulty urination. Telemetry monitoring shows sinus rhythm in the line. No arrhythmias noted.. Bladder scan from yesterday shows the urine residual of 91. OBJECTIVE: GENERAL: The patient is seen lying in the bed in room 372, bed 1. The patient was able to sit up without assistance. VITAL SIGNS: T max is 98.7, heart rate 67. Average blood pressure in the last 24 hours; 140/69, 136/81, 114/56, 114/61, 128/64, 148/79, 156/93. Respirations 20 to 16, O2 sat is 95% to 99%. HEENT: Head: Normocephalic, atraumatic. Pinkish pale conjunctivae. Anicteric sclerae. Dry oral mucosa. NECK: No neck rigidity. CHEST: Kyphosis. LUNGS: Show no rales, crackles, or wheezing. ABDOMEN: Soft. Positive bowel sounds. Slight suprapubic fullness noted. BACK: No costovertebral angle tenderness noted. Significantly reduced spinal tenderness noted. NEUROLOGIC: Motor strength is 5/5 in upper and lower extremities. The patient is able to sit up without assistance. Gait examination is not tested. MUSCULOSKELETAL: Shows a body mass index of 27. VASCULAR: Palpable pulses. Plantars are downward. No foot drop noted. DIAGNOSTIC DATA: From 06/02; WBC 9.4, hemoglobin and hematocrit 10.7 and 33, and platelets 406. PT/PTT 14.2 and 32.2. Sodium 139, potassium 4.1, chloride 105, CO2 of 27, anion gap 12. BUN 17, creatinine 1.1. GFR 58. Glucose 86. Calcium 8.9. LFTs are normal. Troponin is negative.. Urine cultures are growing Klebsiella pneumoniae. MRI of the lumbar spine was done last night with some sedation. Result shows mild disk bulge at L4-L5 and L5-S1 and mild degenerative disk disease. The patient underwent endoscopy. IMPRESSION: 1. Hypotension (resolved). 2. Acute blood loss anemia, etiology undetermined. 3. Laurens grade B esophagitis in the lower third of esophagus with one or more mucosal breaks greater than 5 mm, not extending between the top of two mucosal folds. 4. Nonbleeding linear and superficial gastric ulcer with clean ulcer base, Estuardo III, in the gastric body and gastric antrum. 5. History of hypertension. 6. Leukocytosis with granulocytosis (resolved). 7. Normocytic anemia. 8. Granulocytosis. 9. Transient hyponatremia. 10. Acute kidney injury with prerenal kidney injury, resolved. 11. History of chronic obstructive pulmonary disease. 12. Iron-deficiency normocytic anemia. 13. Klebsiella pneumoniae urinary tract infection with trace proteinuria, microscopic hematuria, pyuria, and bacteriuria. 14. Mild degenerative disk disease with disk bulge of L3-L4, L4-L5, and L5-S1. 15. Constipation, fecal retention, fecal stasis. 16. Questionable urinary retention with distended urinary bladder. 17. Transient drug-induced lethargy (resolved). 18. Hypertensive cardiovascular disease. 19. Deconditioning. PLAN: At this time, the patient is awaiting surgical intervention of the right antecubital cellulitis and ulcer. CURRENT MEDICATIONS: The patient is on Bactroban cream to the affected area, Brovana nebulizer treatment 15 mcg every 12 hours, Colace 100 mg three times a day, DuoNeb nebulizer every 6 hours, Flexeril 5 mg three times a day, heparin 5000 subcu every 8 hours, Venofer 200 mg IV daily x3 doses, Lidoderm patch to the affected area, Lipitor 40 mg daily, Lovaza 2 g twice a day, cefepime started by Infectious Disease 1 g IV every 12 hours, MiraLax 17 g twice a day, Protonix 40 mg daily, Senokot 17.2 mg at bedtime, IV fluid 0.9 normal saline at 60 mL an hour, Ultram 50 mg every 12 hours p.r.n., and Zyvox 600 mg IV every 12 hours. Chest PT, incentive spirometry have been ordered. The patient has been ordered repeat CBC, CMP. Repeat urine culture ordered. The patient presently is being followed by Gastroenterology, Infectious Disease, Neurology, Surgery. The patient's case referred for TCU evaluation and transfer if the patient accepted. The patient updated about her condition, diagnosis, treatment plan, management plan at length. All questions concerned answered to the patient's satisfaction. Dictated and electronically signed, not read. Greggyeimy Amezcua MD [facility] # [id number]
--- NOTE | 2018-06-03 08:39 | CP.PCM.PN ---
Subjective - Date & Time of Evaluation Date of Evaluation: 06/03/18 Time of Evaluation: 08:32 - Subjective Subjective: General Surgery Progress Note for: Dr. Queen Pt was seen and examined this morning at bedside. She denies any acute overnight events and states her pain is being well controlled. She denies any fevers, chills, nausea, vomiting, abdominal pain, constipation or diarrhea. Objective - Vital Signs/Intake and Output Vital Signs (last 24 hours): Temp Pulse Resp BP Pulse Ox 97.7 F 65 20 141/80 97 06/02/18 18:00 06/02/18 22:00 06/02/18 18:00 06/02/18 18:00 06/02/18 18:00 Intake and Output: 06/03/18 06/03/18 06:59 18:59 Intake Total 360 Balance 360 - Medications Medications: Current Medications Albuterol/Ipratropium (Duoneb 3 Mg/0.5 Mg (3 Ml) Ud) 3 ml IH Q6H [facility] Last Admin: 06/03/18 08:00 Dose: 3 ml Arformoterol Tartrate (Brovana) 15 mcg IH [id number] [facility] Last Admin: 06/03/18 08:00 Dose: 15 mcg Atorvastatin Calcium (Lipitor) 40 mg PO DAILY [facility] Last Admin: 06/02/18 09:38 Dose: 40 mg Cyclobenzaprine HCl (Flexeril) 5 mg PO TID [facility] Last Admin: 06/02/18 17:51 Dose: Not Given Docusate Sodium (Colace) 100 mg PO TID [facility] Last Admin: 06/02/18 17:51 Dose: Not Given Heparin Sodium (Porcine) (Heparin) 5,000 units SC Q8 [facility] PRN Reason: Protocol Last Admin: 05/31/18 23:25 Dose: Not Given Linezolid (Zyvox 600mg/300ml D5w) 600 mg in 300 mls @ 200 mls/hr IVPB Q12 [facility] PRN Reason: Protocol Stop: 06/05/18 23:29 Last Admin: 06/02/18 21:56 Dose: 200 mls/hr Iron Sucrose 200 mg/ Sodium (Chloride) 110 mls @ 110 mls/hr IVPB DAILY [facility] Stop: 06/03/18 10:59 Last Admin: 06/02/18 09:25 Dose: 110 mls/hr Cefepime HCl (Maxipime 1gm) 1 gm in 100 mls @ 100 mls/hr IVPB Q12 [facility] PRN Reason: Protocol Stop: 06/09/18 22:01 Last Admin: 06/02/18 21:54 Dose: 100 mls/hr Lidocaine (Lidoderm) 2 ea TD DAILY [facility] Last Admin: 06/02/18 09:38 Dose: 2 ea Mupirocin (Bactroban Ointment) 0 gm TOP Q8H [facility] Last Admin: 06/03/18 08:30 Dose: 1 applic [id number]-[id number] Ethyl Esters (Lovaza) 2 gm PO BID [facility] Last Admin: 06/02/18 17:51 Dose: Not Given Oxycodone/Acetaminophen (Percocet 5/325 Mg Tab) 1 tab PO Q4H PRN PRN Reason: Pain, moderate (4-7) Stop: 06/05/18 12:39 Last Admin: 06/02/18 21:59 Dose: 1 tab Pantoprazole Sodium (Protonix Ec Tab) 40 mg PO 0600 [facility] Last Admin: 06/03/18 06:14 Dose: 40 mg Polyethylene Glycol (Miralax) 17 gm PO BID [facility] Last Admin: 06/02/18 17:51 Dose: Not Given Sennosides (Senokot Tab) 17.2 mg PO HS [facility] Last Admin: 06/02/18 21:55 Dose: 17.2 mg - Labs Labs: 06/03/18 06:00 06/03/18 06:00 PT 14.2 SECONDS (9.4-12.5) H 06/02/18 06:30 INR 1.23 (0.93-1.08) H 06/02/18 06:30 APTT 32.2 Seconds (25.1-36.5) 06/02/18 06:30 - Constitutional Appears: Well, Non-toxic, No Acute Distress - Head Exam Head Exam: ATRAUMATIC, NORMOCEPHALIC - Eye Exam Eye Exam: EOMI, Normal appearance - Respiratory Exam Respiratory Exam: Clear to Ausculation Bilateral, NORMAL BREATHING PATTERN. absent: Accessory Muscle Use, Respiratory Distress - Cardiovascular Exam Cardiovascular Exam: +S1, +S2 - GI/Abdominal Exam GI & Abdominal Exam: Soft, Normal Bowel Sounds. absent: Distended, Firm, Guarding, Rigid, Tenderness - Neurological Exam Neurological Exam: Alert, Awake, Normal Gait, Oriented x3 - Psychiatric Exam Psychiatric exam: Normal Affect, Normal Mood - Skin Skin Exam: Dry, Intact, Normal Color, Warm Additional comments: Dressing in place over right antecubital fossa, packing saturated with sanguinous drainage. No surrounding erythema or purulent discharge. No induration, no fluctuance. Assessment and Plan - Assessment and Plan (Free Text) Assessment: Pt is a 82 yo F with right antecubital cellulitis due to thrombophlebitis, possible infection s/p right antecubital fossa I&D POD 1. Plan: - Remove Iodoform gauze tomorrow AM - Restart plavix and lovenox tomorrow, hold for today - Change IV zyvox to PO zyvox and cefepime - Tolerating diet - [id number] - Further intervention Dr. Queen
--- NOTE | 2018-06-03 08:50 | CP.PCM.PN ---
Addendum entered and electronically signed by Mark Hedrick DO 06/03/18 12:17: Addendum: After further discussion with patient, she is now refusing Colonoscopy or EGD tomorrow. Reasoning for obtaining explained to her, but she still feels that there is no point, and she "doesn't want to go looking for trouble." Original Note: <Mark Hedrick - Last Filed: 06/03/18 12:17> Subjective - Date & Time of Evaluation Date of Evaluation: 06/03/18 Time of Evaluation: 07:40 - Subjective Subjective: GI Progress Note for Dr. Francisco Hedrick, PGY-3 IM Patient seen and examined at bedside. No acute events overnight. S/p EGD 2 days prior, found to have LA Grade B Esophagitis (r/o Glaser's) and several Hendry Class III gastric ulcers (linear/superficial ulcers with clean bases). No acute sources of bleeding identified. No acute complaints today. Objective - Vital Signs/Intake and Output Vital Signs (last 24 hours): Temp Pulse Resp BP Pulse Ox 97.6 F 70 18 141/70 95 06/03/18 08:48 06/03/18 08:48 06/03/18 08:48 06/03/18 08:48 06/03/18 08:48 Intake and Output: 06/03/18 06/03/18 06:59 18:59 Intake Total 360 Balance 360 - Medications Medications: Current Medications Albuterol/Ipratropium (Duoneb 3 Mg/0.5 Mg (3 Ml) Ud) 3 ml IH Q6H [facility] Last Admin: 06/03/18 08:00 Dose: 3 ml Arformoterol Tartrate (Brovana) 15 mcg IH [id number] [facility] Last Admin: 06/03/18 08:00 Dose: 15 mcg Atorvastatin Calcium (Lipitor) 40 mg PO DAILY [facility] Last Admin: 06/02/18 09:38 Dose: 40 mg Cyclobenzaprine HCl (Flexeril) 5 mg PO TID [facility] Last Admin: 06/02/18 17:51 Dose: Not Given Docusate Sodium (Colace) 100 mg PO TID [facility] Last Admin: 06/02/18 17:51 Dose: Not Given Heparin Sodium (Porcine) (Heparin) 5,000 units SC Q8 [facility] PRN Reason: Protocol Last Admin: 05/31/18 23:25 Dose: Not Given Linezolid (Zyvox 600mg/300ml D5w) 600 mg in 300 mls @ 200 mls/hr IVPB Q12 [facility] PRN Reason: Protocol Stop: 06/05/18 23:29 Last Admin: 06/02/18 21:56 Dose: 200 mls/hr Iron Sucrose 200 mg/ Sodium (Chloride) 110 mls @ 110 mls/hr IVPB DAILY [facility] Stop: 06/03/18 10:59 Last Admin: 06/02/18 09:25 Dose: 110 mls/hr Cefepime HCl (Maxipime 1gm) 1 gm in 100 mls @ 100 mls/hr IVPB Q12 [facility] PRN Reason: Protocol Stop: 06/09/18 22:01 Last Admin: 06/02/18 21:54 Dose: 100 mls/hr Lidocaine (Lidoderm) 2 ea TD DAILY [facility] Last Admin: 06/02/18 09:38 Dose: 2 ea Mupirocin (Bactroban Ointment) 0 gm TOP Q8H [facility] Last Admin: 06/03/18 08:30 Dose: 1 applic Xvyju-9-Alyh Ethyl Esters (Lovaza) 2 gm PO BID [facility] Last Admin: 06/02/18 17:51 Dose: Not Given Oxycodone/Acetaminophen (Percocet 5/325 Mg Tab) 1 tab PO Q4H PRN PRN Reason: Pain, moderate (4-7) Stop: 06/05/18 12:39 Last Admin: 06/02/18 21:59 Dose: 1 tab Pantoprazole Sodium (Protonix Ec Tab) 40 mg PO 0600 [facility] Last Admin: 06/03/18 06:14 Dose: 40 mg Polyethylene Glycol (Miralax) 17 gm PO BID [facility] Last Admin: 06/02/18 17:51 Dose: Not Given Sennosides (Senokot Tab) 17.2 mg PO HS [facility] Last Admin: 06/02/18 21:55 Dose: 17.2 mg - Labs Labs: 06/03/18 06:00 06/03/18 06:00 PT 14.2 SECONDS (9.4-12.5) H 06/02/18 06:30 INR 1.23 (0.93-1.08) H 06/02/18 06:30 APTT 32.2 Seconds (25.1-36.5) 06/02/18 06:30 - Additional Findings Additional findings: - Constitutional Appears: Non-toxic, No Acute Distress, Chronically Ill - Head Exam Head Exam: ATRAUMATIC, NORMAL INSPECTION, NORMOCEPHALIC - Eye Exam Eye Exam: Normal appearance. absent: Conjunctival injection, Scleral icterus Pupil Exam: absent: Fixed, Irregular - ENT Exam ENT Exam: Mucous Membranes Moist - Neck Exam Neck exam: Positive for: Full Rom, Normal Inspection - Respiratory Exam Respiratory Exam: Clear to Auscultation Bilateral, NORMAL BREATHING PATTERN. absent: Accessory Muscle Use, Chest Wall Tenderness, Decreased Breath Sounds, Rales, Rhonchi, Wheezes, Respiratory Distress - Cardiovascular Exam Cardiovascular Exam: REGULAR RHYTHM, RRR, +S1, +S2. absent: Bradycardia, Tachycardia, Irregular Rhythm, JVD, +S4 - GI/Abdominal Exam GI & Abdominal Exam: Soft, Normal Bowel Sounds. absent: Diminished Bowel Sounds , Distended, Hyperactive Bowel Sounds, Hypoactive Bowel Sounds, Rigid, Tenderness - Extremities Exam Extremities exam: Negative for: calf tenderness, normal capillary refill, pedal edema, tenderness No kait erythema or grossly edematous region appreciated on RUE - Neurological Exam Awake and alert, moving all extremities spontaneously, following all commands appropriately, motor appears grossly intact and equal bilaterally - Psychiatric Exam Psychiatric exam: Normal Affect, Normal Mood - Skin Skin Exam: Dry, Intact, Normal Color, Warm Additional comments: no appreciable erythema/edema/tenderness along skin of RUE Assessment and Plan - Assessment and Plan (Free Text) Assessment: This is a 82 yo F with PMH of COPD, asthma, TIA on plavix, HLD, and right breast cancer s/p lumpectomy who was sent from TCU to the ED due to acute onsent and persistence of low back pain x2 days and decrease in Hgb from 12 to 9.9 in the same interval. GI consulted for acute drop in Hgb, concerning for possible GI bleed. S/p EGD notable for clean-base ulcers and esophagitis, no acute bleeding identified. Pending EGD/Colonoscopy tomorrow. Plan: COPD/asthma Hx TIA, on plavix and Aspirin right breast cancer s/p lumpectomy acute Hgb drop from 12 to 9.9 in 48 hours acute onset intermittent severe back pain Ddx: GI bleed 2/2 dual antiplatelets vs dilutional effect from IV fluids -Rectal exam negative for bleeding, stool occult negative -CT abd/pelvis obtained, notable for constipation and distended full bladder with suspected urinary retention -Iron studies notable for low iron, and low-normal MCV with wide RDW consistent with Iron-deficiency anemia -Continue to monitor H&H -EGD obtained 2 days prior, notable for LA Grade B Esophagitis (r/o Glaser's) and several Hendry Class III gastric ulcers (linear/superficial ulcers with clean bases); no acute bleeding observed, no biopsies obtained due to pt on plavix. -After discussion between GI attending and PMD, patient to undergo EGD and Colonoscopy tomorrow, off plavix, can obtain biopsies of gastric ulcers Seen, reviewed, and examined with attending, Dr Singh <Sanjana Singh V - Last Filed: 06/03/18 23:40> Objective - Vital Signs/Intake and Output Vital Signs (last 24 hours): Temp Pulse Resp BP Pulse Ox 97.7 F 81 19 169/81 H 99 06/03/18 17:56 06/03/18 17:56 06/03/18 17:56 06/03/18 17:56 06/03/18 17:56 Intake and Output: 06/03/18 06/04/18 18:59 06:59 Output Total 600 Balance -600 - Medications Medications: Current Medications Albuterol/Ipratropium (Duoneb 3 Mg/0.5 Mg (3 Ml) Ud) 3 ml IH Q6H [facility] Last Admin: 06/03/18 19:41 Dose: Not Given Arformoterol Tartrate (Brovana) 15 mcg IH [id number] [facility] Last Admin: 06/03/18 19:41 Dose: Not Given Atorvastatin Calcium (Lipitor) 40 mg PO DAILY [facility] Last Admin: 06/03/18 11:40 Dose: Not Given Cephalexin Monohydrate (Keflex) 500 mg PO Q8 [facility] PRN Reason: Protocol Last Admin: 06/03/18 21:02 Dose: 500 mg Cyclobenzaprine HCl (Flexeril) 5 mg PO TID [facility] Last Admin: 06/03/18 17:46 Dose: Not Given Docusate Sodium (Colace) 100 mg PO TID [facility] Last Admin: 07/19/18 17:46 Dose: Not Given Heparin Sodium (Porcine) (Heparin) 5,000 units SC Q8 [facility] PRN Reason: Protocol Last Admin: 05/31/18 23:25 Dose: Not Given Lidocaine (Lidoderm) 2 ea TD DAILY [facility] Last Admin: 06/03/18 11:41 Dose: Not Given Linezolid (Zyvox) 600 mg PO BID [facility] PRN Reason: Protocol Last Admin: 06/03/18 18:12 Dose: 600 mg Mupirocin (Bactroban Ointment) 0 gm TOP Q8H [facility] Last Admin: 06/03/18 22:34 Dose: 1 applic [id number]-[id number] Ethyl Esters (Lovaza) 2 gm PO BID [facility] Last Admin: 06/03/18 18:12 Dose: 2 gm Oxycodone/Acetaminophen (Percocet 5/325 Mg Tab) 1 tab PO Q4H PRN PRN Reason: Pain, moderate (4-7) Stop: 06/05/18 12:39 Last Admin: 06/03/18 10:55 Dose: 1 tab Pantoprazole Sodium (Protonix Ec Tab) 40 mg PO 0600 [facility] Last Admin: 06/03/18 06:14 Dose: 40 mg Polyethylene Glycol (Miralax) 17 gm PO BID [facility] Last Admin: 06/03/18 17:47 Dose: Not Given Sennosides (Senokot Tab) 17.2 mg PO HS [facility] Last Admin: 06/03/18 21:02 Dose: Not Given - Labs Labs: 06/03/18 06:00 06/03/18 06:00 PT 14.2 SECONDS (9.4-12.5) H 06/02/18 06:30 INR 1.23 (0.93-1.08) H 06/02/18 06:30 APTT 32.2 Seconds (25.1-36.5) 06/02/18 06:30 Attending/Attestation - Attestation I have personally seen and examined this patient.: Yes I have fully participated in the care of the patient.: Yes I have reviewed all pertinent clinical information, including history, physical exam and plan: Yes Notes (Text): This is an addendum to GI progress report dictated by the Wildfire Prevention Specialist.The patient was seen and examined earlier. Medical records, lab studies, imagings were reviewed. Last 24 hours events reviewed. Agreed with the above treatment plan as outlined in Wildfire Prevention Specialist 's notes the with the addition of the following 06/03/18 23:40
[2018-06-03] MEDS: Linezolid 600 mg in D5W 300 ml 600 MG/300 ML BAG IVPB SCH ×2 (09:00)
[2018-06-03] MEDS: POLYETHYLENE GLYCOL 3350 17 GM/Dose PACKET PO SCH ×2 (09:01→17:47)
--- NOTE | 2018-06-03 09:17 | PN ---
DATE: 06/03/2018 SUBJECTIVE: The patient is in room 372, bed 1, [facility] in [place]. The patient is admitted to Dr. Gregg Amezcua. I am covering for him today. The patient was admitted with an abscess in the forearm antecubital area where the patient developed an infection at an IV site. The patient has thrombophlebitis involving the basilic vein. The patient's past history significant that she has breast cancer, history of hysterectomy. The patient also has history of chronic lung disease, hypertension, urinary tract infection. The patient is seen this morning. The patient had surgery yesterday. She is continuing her medications at this time. She is started on the Plavix, but it was discontinued for surgery. PHYSICAL EXAMINATION VITAL SIGNS: The patient's temperature 97, blood pressure is 140/80, respirations are 20 per minute, O2 sat is 97% on room air, the patient's pulse rate is 65 per minute. HEENT: The patient's head is normocephalic. NECK: The thyroid is not enlarged. No lymphadenopathy in the neck. LUNGS: Trachea central. Breath sounds vesicular, diminished bilaterally. Occasional rhonchi. HEART: Normal sinus rhythm. S1, S2 present. No murmurs. ABDOMEN: Soft. Liver and spleen not palpable. RETURNING OFFICER: No focal deficits. EXTREMITIES: The patient has dressing on the arm that is secondary to the surgery that was performed to drain an abscess in the arm. MEDICATIONS: The patient's medications consist of Mupirocin for local treatment. The patient is on Brovana for COPD; albuterol, DuoNeb for COPD. The patient is on Flexeril for pain; heparin 5000 units every 8 hours for deep vein thrombosis prophylaxis . She has been getting iron infusion and the patient is on a Lidocaine patch. She also gets Lipitor 40 mg daily. The patient is on Lovaza twice a day. The patient is on Maxipime 1 g every 8 hours and MiraLax for constipation. ASSESSMENT AND PLAN: The patient's current condition seemed to be stable and improving. We will continue current management on the antibiotics. We will follow up. Jefry Brown MD [facility]
[2018-06-03] MEDS ORDERED: Peg-Electrolyte Oral Soln 4L (Golytely) PO ONE (10:45)
[2018-06-03] MEDS: Oxycodone/Acetaminophen 5/325 mg Tab PO PRN (10:55)
[2018-06-03] MEDS: Cefepime 1gm in NS 100ml 1 GM/100 ML BAG IVPB SCH (10:56)
[2018-06-03] MEDS: Lidocaine 5% Patch TD SCH (11:41)
--- NOTE | 2018-06-03 15:00 | CP.PCM.PN ---
Subjective - Date & Time of Evaluation Date of Evaluation: 06/03/18 Time of Evaluation: 10:50 - Subjective Subjective: No fevers, not in distress, right arm is feeling better although had a little but of bleeding today. Objective - Vital Signs/Intake and Output Vital Signs (last 24 hours): Temp Pulse Resp BP Pulse Ox 97.7 F 65 20 141/80 97 06/02/18 18:00 06/02/18 22:00 06/02/18 18:00 06/02/18 18:00 06/02/18 18:00 Intake and Output: 06/03/18 06/03/18 06:59 18:59 Intake Total 360 Balance 360 - Medications Medications: Current Medications Albuterol/Ipratropium (Duoneb 3 Mg/0.5 Mg (3 Ml) Ud) 3 ml IH Q6H [facility] Last Admin: 06/03/18 01:59 Dose: Not Given Arformoterol Tartrate (Brovana) 15 mcg IH [id number] [facility] Last Admin: 06/02/18 20:09 Dose: Not Given Atorvastatin Calcium (Lipitor) 40 mg PO DAILY [facility] Last Admin: 06/02/18 09:38 Dose: 40 mg Cyclobenzaprine HCl (Flexeril) 5 mg PO TID [facility] Last Admin: 06/02/18 17:51 Dose: Not Given Docusate Sodium (Colace) 100 mg PO TID [facility] Last Admin: 06/02/18 17:51 Dose: Not Given Heparin Sodium (Porcine) (Heparin) 5,000 units SC Q8 [facility] PRN Reason: Protocol Last Admin: 05/31/18 23:25 Dose: Not Given Linezolid (Zyvox 600mg/300ml D5w) 600 mg in 300 mls @ 200 mls/hr IVPB Q12 [facility] PRN Reason: Protocol Stop: 06/05/18 23:29 Last Admin: 06/02/18 21:56 Dose: 200 mls/hr Iron Sucrose 200 mg/ Sodium (Chloride) 110 mls @ 110 mls/hr IVPB DAILY [facility] Stop: 06/03/18 10:59 Last Admin: 06/02/18 09:25 Dose: 110 mls/hr Cefepime HCl (Maxipime 1gm) 1 gm in 100 mls @ 100 mls/hr IVPB Q12 [facility] PRN Reason: Protocol Stop: 06/09/18 22:01 Last Admin: 06/02/18 21:54 Dose: 100 mls/hr Lidocaine (Lidoderm) 2 ea TD DAILY [facility] Last Admin: 06/02/18 09:38 Dose: 2 ea Mupirocin (Bactroban Ointment) 0 gm TOP Q8H [facility] Last Admin: 06/03/18 02:00 Dose: 1 applic Oyokj-0-Ugns Ethyl Esters (Lovaza) 2 gm PO BID [facility] Last Admin: 06/02/18 17:51 Dose: Not Given Oxycodone/Acetaminophen (Percocet 5/325 Mg Tab) 1 tab PO Q4H PRN PRN Reason: Pain, moderate (4-7) Stop: 06/05/18 12:39 Last Admin: 06/02/18 21:59 Dose: 1 tab Pantoprazole Sodium (Protonix Ec Tab) 40 mg PO 0600 [facility] Last Admin: 06/03/18 06:14 Dose: 40 mg Polyethylene Glycol (Miralax) 17 gm PO BID [facility] Last Admin: 06/02/18 17:51 Dose: Not Given Sennosides (Senokot Tab) 17.2 mg PO HS [facility] Last Admin: 06/02/18 21:55 Dose: 17.2 mg - Labs Labs: 06/03/18 06:00 06/03/18 06:00 PT 14.2 SECONDS (9.4-12.5) H 06/02/18 06:30 INR 1.23 (0.93-1.08) H 06/02/18 06:30 APTT 32.2 Seconds (25.1-36.5) 06/02/18 06:30 - Constitutional Appears: Non-toxic, Chronically Ill - Head Exam Head Exam: NORMAL INSPECTION - Respiratory Exam Respiratory Exam: Decreased Breath Sounds - Cardiovascular Exam Cardiovascular Exam: +S1, +S2 - GI/Abdominal Exam GI & Abdominal Exam: Soft. absent: Tenderness - Extremities Exam Additional comments: right arm with dressings in place Assessment and Plan - Assessment and Plan (Free Text) Plan: Assessment Probable superimposed skin and skin structure infection with basilic vein thrombophlebitis over the right arm anetecubital area, S/P debridement including clot removal from the basilic vein - as per Dr. Queen no pus was noted consider UTI with Klebsiella COPD HTN history of TIA Plan continue Zyvox and change cefepime to Keflex to complete another 7 days - discussed with Dr. Queen, with outpatient follow up with Surgery and PMD
[2018-06-04] MEDS: Albuterol-Ipratrop 3 mg / 0.5 (3 ml) UD IH SCH ×2 (01:13→08:56)
[2018-06-04] MEDS: Pantoprazole 40 mg EC Tab PO SCH (06:49)
[2018-06-04] MEDS: Arformoterol 15 mcg/2 ml Inh Sol IH SCH (07:25)
--- NOTE | 2018-06-04 08:04 | CP.PCM.PN ---
Subjective - Date & Time of Evaluation Date of Evaluation: 06/04/18 Time of Evaluation: 07:30 - Subjective Subjective: (covering for Dr. Amezcua) Patient is seen this morning in room 378 bed 1. She is requesting to go home today. She has refused endoscopy. Objective - Vital Signs/Intake and Output Vital Signs (last 24 hours): Temp Pulse Resp BP Pulse Ox 97.7 F 70 19 169/81 H 99 06/03/18 17:56 06/04/18 05:50 06/03/18 17:56 06/03/18 17:56 06/03/18 17:56 Intake and Output: 06/04/18 06/04/18 06:59 18:59 Output Total 600 Balance -600 - Medications Medications: Current Medications Albuterol/Ipratropium (Duoneb 3 Mg/0.5 Mg (3 Ml) Ud) 3 ml IH Q6H [facility] Last Admin: 06/04/18 01:13 Dose: Not Given Arformoterol Tartrate (Brovana) 15 mcg IH [id number] [facility] Last Admin: 06/04/18 07:25 Dose: Not Given Aspirin (Ecotrin) 81 mg PO DAILY [facility] Atorvastatin Calcium (Lipitor) 40 mg PO DAILY [facility] Last Admin: 06/03/18 11:40 Dose: Not Given Cephalexin Monohydrate (Keflex) 500 mg PO Q8 [facility] PRN Reason: Protocol Last Admin: 06/04/18 06:48 Dose: 500 mg Clopidogrel Bisulfate (Plavix) 75 mg PO DAILY [facility] Cyclobenzaprine HCl (Flexeril) 5 mg PO TID [facility] Last Admin: 06/03/18 17:46 Dose: Not Given Docusate Sodium (Colace) 100 mg PO TID [facility] Last Admin: 06/03/18 17:46 Dose: Not Given Heparin Sodium (Porcine) (Heparin) 5,000 units SC Q8 [facility] PRN Reason: Protocol Last Admin: 05/31/18 23:25 Dose: Not Given Lidocaine (Lidoderm) 2 ea TD DAILY [facility] Last Admin: 06/03/18 11:41 Dose: Not Given Linezolid (Zyvox) 600 mg PO BID [facility] PRN Reason: Protocol Last Admin: 06/03/18 18:12 Dose: 600 mg Mupirocin (Bactroban Ointment) 0 gm TOP Q8H [facility] Last Admin: 06/03/18 22:34 Dose: 1 applic Tkiij-9-Vhgo Ethyl Esters (Lovaza) 2 gm PO BID [facility] Last Admin: 06/03/18 18:12 Dose: 2 gm Oxycodone/Acetaminophen (Percocet 5/325 Mg Tab) 1 tab PO Q4H PRN PRN Reason: Pain, moderate (4-7) Stop: 06/05/18 12:39 Last Admin: 06/03/18 10:55 Dose: 1 tab Pantoprazole Sodium (Protonix Ec Tab) 40 mg PO 0600 [facility] Last Admin: 06/04/18 06:49 Dose: 40 mg Polyethylene Glycol (Miralax) 17 gm PO BID [facility] Last Admin: 06/03/18 17:47 Dose: Not Given Sennosides (Senokot Tab) 17.2 mg PO HS [facility] Last Admin: 06/03/18 21:02 Dose: Not Given - Labs Labs: 06/03/18 06:00 06/03/18 06:00 PT 14.2 SECONDS (9.4-12.5) H 06/02/18 06:30 INR 1.23 (0.93-1.08) H 06/02/18 06:30 APTT 32.2 Seconds (25.1-36.5) 06/02/18 06:30 - Constitutional Appears: No Acute Distress - Head Exam Head Exam: ATRAUMATIC, NORMOCEPHALIC - Respiratory Exam Respiratory Exam: NORMAL BREATHING PATTERN Additional comments: few wheezes - Cardiovascular Exam Cardiovascular Exam: +S1, +S2 - GI/Abdominal Exam GI & Abdominal Exam: Soft, Normal Bowel Sounds. absent: Tenderness - Extremities Exam Extremities Exam: absent: Pedal Edema - Neurological Exam Neurological Exam: Alert, Awake, Oriented x3 Assessment and Plan - Assessment and Plan (Free Text) Assessment: right antecubital abscess s/p incision and drainage Esophagitis/ gastric ulcers HTN Degenerative disk disease and mild disk bulge L4-L5 COPD Plan: Patient is seen this morning and is insisting on going home. Patient underwent endoscopy which showed esophagitis and non-bleeding gastric ulcers. Patient was to have repeat EGD for biopsy, however, she is refusing the procedure at this time. Hemoglobin is stable at around 10.0 Patient has had incision and drainage of antecubital abscess by Dr. Queen. Antibiotics have been changed to oral by Dr. Valdo, infectious disease. Patient may be discharged today if cleared by Dr. Queen. She will continue her home medications plus Zyvox and Keflex for 1 week.
[2018-06-04] MEDS: Mupirocin 2% Ointment 15 GM TUBE TOP SCH (08:30)
[2018-06-04 08:58] VITALS: BP 160/87; RESP 20; TEMP 98; O2SAT 98
[2018-06-04] MEDS: Omega-3-Acid Ethyl Esters 1 GM Cap PO SCH (09:09)
[2018-06-04] MEDS: Lidocaine 5% Patch TD SCH (09:09)
[2018-06-04] MEDS: POLYETHYLENE GLYCOL 3350 17 GM/Dose PACKET PO SCH (09:10)
--- NOTE | 2018-06-04 11:06 | CP.PCM.PN ---
Subjective - Date & Time of Evaluation Date of Evaluation: 06/04/18 Time of Evaluation: 11:03 - Subjective Subjective: General Surgery Note for: Dr. Queen Pt was seen and examined this morning at bedside. She denies any acute overnight events per nursing. She states that her pain is adequately controlled on her current pain regimen. She denies fevers, chills, nausea, vomiting, abdominal pain. Pt denies difficulty with sensation or motor movement of right arm. Pt is very eager to go home. Objective - Vital Signs/Intake and Output Vital Signs (last 24 hours): Temp Pulse Resp BP Pulse Ox 98 F 77 20 160/87 H 98 06/04/18 08:57 06/04/18 08:57 06/04/18 08:57 06/04/18 08:57 06/04/18 08:57 Intake and Output: 06/04/18 06/04/18 06:59 18:59 Output Total 600 Balance -600 - Medications Medications: Current Medications Albuterol/Ipratropium (Duoneb 3 Mg/0.5 Mg (3 Ml) Ud) 3 ml IH Q6H [facility] Last Admin: 06/04/18 08:56 Dose: Not Given Arformoterol Tartrate (Brovana) 15 mcg IH [id number] [facility] Last Admin: 06/04/18 07:25 Dose: Not Given Aspirin (Ecotrin) 81 mg PO DAILY [facility] Last Admin: 06/04/18 09:10 Dose: 81 mg Atorvastatin Calcium (Lipitor) 40 mg PO DAILY [facility] Last Admin: 06/04/18 09:10 Dose: 40 mg Cephalexin Monohydrate (Keflex) 500 mg PO Q8 [facility] PRN Reason: Protocol Last Admin: 06/04/18 06:48 Dose: 500 mg Clopidogrel Bisulfate (Plavix) 75 mg PO DAILY [facility] Last Admin: 06/04/18 09:10 Dose: 75 mg Cyclobenzaprine HCl (Flexeril) 5 mg PO TID [facility] Last Admin: 06/04/18 09:09 Dose: 5 mg Docusate Sodium (Colace) 100 mg PO TID [facility] Last Admin: 06/04/18 09:11 Dose: Not Given Heparin Sodium (Porcine) (Heparin) 5,000 units SC Q8 [facility] PRN Reason: Protocol Last Admin: 05/31/18 23:25 Dose: Not Given Lidocaine (Lidoderm) 2 ea TD DAILY [facility] Last Admin: 06/04/18 09:09 Dose: 2 ea Linezolid (Zyvox) 600 mg PO BID [facility] PRN Reason: Protocol Last Admin: 06/04/18 09:10 Dose: 600 mg Mupirocin (Bactroban Ointment) 0 gm TOP Q8H [facility] Last Admin: 06/04/18 08:30 Dose: Not Given Teoms-1-Bbzh Ethyl Esters (Lovaza) 2 gm PO BID [facility] Last Admin: 06/04/18 09:09 Dose: 2 gm Oxycodone/Acetaminophen (Percocet 5/325 Mg Tab) 1 tab PO Q4H PRN PRN Reason: Pain, moderate (4-7) Stop: 06/05/18 12:39 Last Admin: 06/03/18 10:55 Dose: 1 tab Pantoprazole Sodium (Protonix Ec Tab) 40 mg PO 0600 [facility] Last Admin: 06/04/18 06:49 Dose: 40 mg Polyethylene Glycol (Miralax) 17 gm PO BID [facility] Last Admin: 06/04/18 09:10 Dose: Not Given Sennosides (Senokot Tab) 17.2 mg PO HS [facility] Last Admin: 06/03/18 21:02 Dose: Not Given - Labs Labs: 06/03/18 06:00 06/03/18 06:00 PT 14.2 SECONDS (9.4-12.5) H 06/02/18 06:30 INR 1.23 (0.93-1.08) H 06/02/18 06:30 APTT 32.2 Seconds (25.1-36.5) 06/02/18 06:30 - Constitutional Appears: Well, Non-toxic, No Acute Distress - Head Exam Head Exam: ATRAUMATIC, NORMOCEPHALIC - Eye Exam Eye Exam: EOMI, Normal appearance - Respiratory Exam Respiratory Exam: Clear to Ausculation Bilateral, NORMAL BREATHING PATTERN. absent: Accessory Muscle Use, Respiratory Distress - Cardiovascular Exam Cardiovascular Exam: +S1, +S2 - GI/Abdominal Exam GI & Abdominal Exam: Soft, Normal Bowel Sounds. absent: Distended, Firm, Guarding, Rigid, Tenderness - Neurological Exam Neurological Exam: Alert, Awake, Oriented x3 - Psychiatric Exam Psychiatric exam: Normal Affect, Normal Mood - Skin Skin Exam: Dry, Intact, Normal Color, Warm Additional comments: Dressing in place over right antecubital fossa, incision C/D/I. Iodoform gauze in place. Assessment and Plan - Assessment and Plan (Free Text) Assessment: Pt is a 82 yo F with right antecubital cellulitis due to thrombophlebitis, possible infection s/p right antecubital fossa I&D POD2. Plan: - Remove Iodoform today - Restarted ASA and plavix - Rx for bactrim and bactroban - No further surgical intervention at this time - Surgically cleared for d/c - Further recs per Dr. Queen
[2018-06-04 12:17] VITALS: PULSE 81
--- NOTE | 2018-06-04 13:01 | CP.PCM.PN ---
<Mark Hedrick - Last Filed: 06/04/18 12:56> Subjective - Date & Time of Evaluation Date of Evaluation: 06/04/18 Time of Evaluation: 08:50 - Subjective Subjective: GI Progress Note for Dr. Francisco Hedrick, PGY-3 IM Patient seen and examined at bedside. No acute events overnight. Prior EGD notable for LA Grade B Esophagitis (r/o Glaser's) and several Mesa Class III gastric ulcers (linear/superficial ulcers with clean bases). No acute sources of bleeding identified. No acute complaints today. No acute events overnight. Was to have repeat EGD and Colonoscopy now that she was off plavix, but now refusing, just wants to go home. Risks of not undergoing colonoscopy and repeat EGD for biopsies explained to patient, who expressed understanding, but stated that she is 82 years old, about to be 83, and doesn't want to go looking for trouble. Attending covering for her PMD aware of her decision to refuse scoping. Objective - Vital Signs/Intake and Output Vital Signs (last 24 hours): Temp Pulse Resp BP Pulse Ox 98 F 81 20 160/87 H 98 06/04/18 08:57 06/04/18 10:00 06/04/18 08:57 06/04/18 08:57 06/04/18 08:57 Intake and Output: 06/04/18 06/04/18 06:59 18:59 Output Total 600 Balance -600 - Labs Labs: 06/03/18 06:00 06/03/18 06:00 PT 14.2 SECONDS (9.4-12.5) H 06/02/18 06:30 INR 1.23 (0.93-1.08) H 06/02/18 06:30 APTT 32.2 Seconds (25.1-36.5) 06/02/18 06:30 - Additional Findings Additional findings: - Constitutional Appears: Non-toxic, No Acute Distress, Chronically Ill - Head Exam Head Exam: ATRAUMATIC, NORMAL INSPECTION, NORMOCEPHALIC - Eye Exam Eye Exam: Normal appearance. absent: Conjunctival injection, Scleral icterus Pupil Exam: absent: Fixed, Irregular - ENT Exam ENT Exam: Mucous Membranes Moist - Neck Exam Neck exam: Positive for: Full Rom, Normal Inspection - Respiratory Exam Respiratory Exam: Clear to Auscultation Bilateral, NORMAL BREATHING PATTERN. absent: Accessory Muscle Use, Chest Wall Tenderness, Decreased Breath Sounds, Rales, Rhonchi, Wheezes, Respiratory Distress - Cardiovascular Exam Cardiovascular Exam: REGULAR RHYTHM, RRR, +S1, +S2. absent: Bradycardia, Tachycardia, Irregular Rhythm, JVD, +S4 - GI/Abdominal Exam GI & Abdominal Exam: Soft, Normal Bowel Sounds. absent: Diminished Bowel Sounds , Distended, Hyperactive Bowel Sounds, Hypoactive Bowel Sounds, Rigid, Tenderness - Extremities Exam Extremities exam: Negative for: calf tenderness, pedal edema, tenderness Bandaging on RUE, no sign of oozing or bleeding through bandaging, no surrounding erythema/induration/palpable fluctuance - Neurological Exam Awake and alert, moving all extremities spontaneously, following all commands appropriately, motor appears grossly intact and equal bilaterally - Psychiatric Exam Psychiatric exam: Normal Affect, Normal Mood - Skin Skin Exam: Dry, Intact (except as documented in extremities exam), Normal Color , Warm Assessment and Plan - Assessment and Plan (Free Text) Assessment: This is a 82 yo F with PMH of COPD, asthma, TIA on plavix, HLD, and right breast cancer s/p lumpectomy who was sent from TCU to the ED due to acute onsent and persistence of low back pain x2 days and decrease in Hgb from 12 to 9.9 in the same interval. GI consulted for acute drop in Hgb, concerning for possible GI bleed. S/p EGD notable for clean-base ulcers and esophagitis, no acute bleeding identified. She has decided to decline EGD/Colonoscopy, and is pending discharge to home as per primary team. Plan: COPD/asthma Hx TIA, on plavix and Aspirin right breast cancer s/p lumpectomy acute Hgb drop from 12 to 9.9 in 48 hours acute onset intermittent severe back pain Ddx: GI bleed 2/2 dual antiplatelets vs dilutional effect from IV fluids -Rectal exam negative for bleeding, stool occult negative -CT abd/pelvis obtained, notable for constipation and distended full bladder with suspected urinary retention -Iron studies notable for low iron, and low-normal MCV with wide RDW consistent with Iron-deficiency anemia -Continue to monitor H&H -EGD obtained 2 days prior, notable for LA Grade B Esophagitis (r/o Glaser's) and several Mesa Class III gastric ulcers (linear/superficial ulcers with clean bases); no acute bleeding observed, no biopsies obtained due to pt on plavix. -refusing further EGD or colonoscopy, risks of not obtaining explained and patient expressed understanding but still refusing additional tests Seen, reviewed, and examined with attending, Dr Singh <Sanjana Singh V - Last Filed: 06/05/18 02:48> Objective - Vital Signs/Intake and Output Vital Signs (last 24 hours): Temp Pulse Resp BP Pulse Ox 98 F 81 20 160/87 H 98 06/04/18 08:57 06/04/18 10:00 06/04/18 08:57 06/04/18 08:57 06/04/18 08:57 - Labs Labs: 06/03/18 06:00 06/03/18 06:00 PT 14.2 SECONDS (9.4-12.5) H 06/02/18 06:30 INR 1.23 (0.93-1.08) H 06/02/18 06:30 APTT 32.2 Seconds (25.1-36.5) 06/02/18 06:30 Attending/Attestation - Attestation I have personally seen and examined this patient.: Yes I have fully participated in the care of the patient.: Yes I have reviewed all pertinent clinical information, including history, physical exam and plan: Yes Notes (Text): This is an addendum to GI progress report dictated by the Central Supply Tech.The patient was seen and examined earlier. Medical records, lab studies, imagings were reviewed. Last 24 hours events reviewed. Agreed with the above treatment plan as outlined in Central Supply Tech 's notes the with the addition of the following 06/05/18 02:47
--- NOTE | 2018-06-04 13:41 | CP.PCM.PN ---
Subjective - Date & Time of Evaluation Date of Evaluation: 06/04/18 Time of Evaluation: 11:50 - Subjective Subjective: Anxious to go home , no fevers, not in distress, right arm feels much better. Objective - Vital Signs/Intake and Output Vital Signs (last 24 hours): Temp Pulse Resp BP Pulse Ox 98 F 77 20 160/87 H 98 06/04/18 08:57 06/04/18 08:57 06/04/18 08:57 06/04/18 08:57 06/04/18 08:57 Intake and Output: 06/04/18 06/04/18 06:59 18:59 Output Total 600 Balance -600 - Medications Medications: Current Medications Albuterol/Ipratropium (Duoneb 3 Mg/0.5 Mg (3 Ml) Ud) 3 ml IH Q6H [facility] Last Admin: 06/04/18 08:56 Dose: Not Given Arformoterol Tartrate (Brovana) 15 mcg IH [id number] [facility] Last Admin: 06/04/18 07:25 Dose: Not Given Aspirin (Ecotrin) 81 mg PO DAILY [facility] Last Admin: 06/04/18 09:10 Dose: 81 mg Atorvastatin Calcium (Lipitor) 40 mg PO DAILY [facility] Last Admin: 06/04/18 09:10 Dose: 40 mg Cephalexin Monohydrate (Keflex) 500 mg PO Q8 [facility] PRN Reason: Protocol Last Admin: 06/04/18 06:48 Dose: 500 mg Clopidogrel Bisulfate (Plavix) 75 mg PO DAILY [facility] Last Admin: 06/04/18 09:10 Dose: 75 mg Cyclobenzaprine HCl (Flexeril) 5 mg PO TID [facility] Last Admin: 06/04/18 09:09 Dose: 5 mg Docusate Sodium (Colace) 100 mg PO TID [facility] Last Admin: 06/04/18 09:11 Dose: Not Given Heparin Sodium (Porcine) (Heparin) 5,000 units SC Q8 [facility] PRN Reason: Protocol Last Admin: 05/31/18 23:25 Dose: Not Given Lidocaine (Lidoderm) 2 ea TD DAILY [facility] Last Admin: 06/04/18 09:09 Dose: 2 ea Linezolid (Zyvox) 600 mg PO BID [facility] PRN Reason: Protocol Last Admin: 06/04/18 09:10 Dose: 600 mg Mupirocin (Bactroban Ointment) 0 gm TOP Q8H [facility] Last Admin: 06/04/18 08:30 Dose: Not Given Mjdkg-9-Chqy Ethyl Esters (Lovaza) 2 gm PO BID [facility] Last Admin: 06/04/18 09:09 Dose: 2 gm Oxycodone/Acetaminophen (Percocet 5/325 Mg Tab) 1 tab PO Q4H PRN PRN Reason: Pain, moderate (4-7) Stop: 06/05/18 12:39 Last Admin: 06/03/18 10:55 Dose: 1 tab Pantoprazole Sodium (Protonix Ec Tab) 40 mg PO 0600 [facility] Last Admin: 06/04/18 06:49 Dose: 40 mg Polyethylene Glycol (Miralax) 17 gm PO BID [facility] Last Admin: 06/04/18 09:10 Dose: Not Given Sennosides (Senokot Tab) 17.2 mg PO HS [facility] Last Admin: 06/03/18 21:02 Dose: Not Given - Labs Labs: 06/03/18 06:00 06/03/18 06:00 PT 14.2 SECONDS (9.4-12.5) H 06/02/18 06:30 INR 1.23 (0.93-1.08) H 06/02/18 06:30 APTT 32.2 Seconds (25.1-36.5) 06/02/18 06:30 - Constitutional Appears: Non-toxic, Chronically Ill - Head Exam Head Exam: NORMAL INSPECTION - ENT Exam ENT Exam: Mucous Membranes Moist - Neck Exam Neck Exam: absent: Lymphadenopathy, Meningismus - Respiratory Exam Respiratory Exam: Decreased Breath Sounds. absent: Rales - Cardiovascular Exam Cardiovascular Exam: +S1, +S2 - GI/Abdominal Exam GI & Abdominal Exam: Soft. absent: Tenderness - Extremities Exam Additional comments: right arm with dressings in place Assessment and Plan - Assessment and Plan (Free Text) Plan: Assessment Probable superimposed skin and skin structure infection with basilic vein thrombophlebitis over the right arm anetecubital area, S/P debridement including clot removal from the basilic vein - as per Dr. Queen no pus was noted consider UTI with Klebsiella COPD HTN history of TIA Plan continue Zyvox and change cefepime to Keflex to complete another 6 days - discussed with Dr. Queen, with outpatient follow up with Surgery and PMD
--- NOTE | 2018-06-11 03:18 | DS ---
HISTORY OF PRESENT ILLNESS: This is an 82-year-old female with history of COPD, asthma, TIA, hyperlipidemia, right breast cancer, status post lumpectomy, who was admitted to the [facility] (Former[facility]) with right arm thrombophlebitis and cellulitis and then transferred to the transitional care unit for rehab. In the transitional care unit, patient became hypotensive, developed low-grade temperature of 100.7 and a drop in hemoglobin from 11.6 to 9.9. She was transferred to the emergency room. CT of the abdomen and pelvis is negative for hematoma. Head CT negative for acute stroke. Lumbar CT was done, which showed moderate disk bulge at L4-L5. HOSPITAL COURSE: Patient was admitted for mild hypotension, started on IV fluids. She was already on antibiotics for the right arm thrombophlebitis and cellulitis. For the anemia, she was seen by GI. She underwent endoscopy which showed few nonbleeding linear and superficial gastric ulcers. Due to the fact that the patient was on Plavix, she was not biopsied and was scheduled for repeat endoscopy. She also underwent incision and drainage of right arm antecubital abscess. Patient was improving. Her hemoglobin is stable around 10. Her antibiotics were switched to p.o. and cleared by Infectious Disease, Surgery, and GI. She was supposed to go for repeat endoscopy for the biopsy done as an outpatient. DISCHARGE DIAGNOSES: Right antecubital abscess, status post incision and drainage; esophagitis; gastric ulcers; hypertension; degenerative disk disease; mild disk bulge at L4-L5; chronic obstructive pulmonary disease. FOLLOWUP: The patient will follow up with Dr. Amezcua. She will follow up with Dr. Queen regarding wound care. She will continue Zyvox and Keflex for one week. DISCHARGE MEDICATIONS: Mupirocin ointment three times a day, Brovana twice a day, Colace 100 mg three times a day, DuoNeb every 6 hours, aspirin 81 mg daily, Keflex 500 mg three times a day, Zyvox 600 mg twice a day, Lipitor 40 mg daily, Lovaza 1 g twice a day, Norvasc 5 mg daily, Plavix 75 mg daily, Protonix 40 mg daily, and Senokot one tab daily. Tony Brown MD [facility] # [id number]
--- NOTE | 2018-06-11 13:02 | OP ---
PROCEDURE DATE: 06/02/2018 SURGEON: Tae Queen MD OUTSOLE SCHEDULER: Jen Fischer. MUSIC COMPOSER: Julian Vidal MD PREOPERATIVE DIAGNOSES: Right basilic vein thrombosis with overlying arm cellulitis. POSTOPERATIVE DIAGNOSES: Right basilic vein thrombosis with overlying arm cellulitis. Pathology pending. PROCEDURES: 1. Wide and deep excision and drainage of the right antecubital fossa. 2. Excision of a right basilic vein and culture. OPERATIVE INDICATION: The patient is an 82-year-old female who had been in hospital 5 weeks earlier (elsewhere) and had an intravenous line inserted and remained for approximately 4 days. In removing the line, the patient started to develop progressive pain, swelling, and then redness. She had been on antibiotics and sought medical attention with Dr. Gregg Amezcua who advised the patient to come through the emergency room to be evaluated and subsequently being admitted. While in the hospital, this patient was seen by the surgical team and was noted to have fairly symptomatic resolution of the swelling and erythema. Cultures were taken of the drainage that was found at the puncture site and did return with no growth after 4 days. The ultrasound examination demonstrated a segment of the basilic vein that is still thrombosed and blood cultures failed to demonstrate any bacteremia. The patient remains under observation in the Transitional Care Unit following her acute care and had a sudden rise of temperature one day to 100.7 and the white count mildly elevated on the same day. The attending physician's impression was that there may have been a deeper infection that is not being completely resolved by the parenteral antibiotics and the decision was made with the patient's concurrence to explore the wound, widely debride the inflammatory reaction, culturing that, and then find the basilic vein and culture that as well. Risks, benefits, and alternatives with their anticipated outcomes were discussed with the patient and she signs the informed consent. OPERATIVE NOTE: The patient was brought to the operating room from the same-day holding area. She underwent time-out procedure, was identified by her wrist band, was placed on the table in a supine manner in the OR, and placed on an ironing board procedure table. Following intravenous sedation and oxygenation monitoring (MAC), the right arm was completely prepped with chlorhexidine preparation as the patient is ALLERGIC TO IODINE COMPOUNDS. The patient is now aseptically draped. With careful technique, field block infiltration of the antecubital fossa was employed with 0.5% bupivacaine. An elliptical incision was made to excise the entire chronic inflamed area down to the depths of the antecubital fossa. The specimen was cultured by taking a small piece of the granulation tissue underneath the skin, and the skin and granulation were then submitted to Pathology in formalin. As hemostasis was obtained with a cautery at this point, the ultrasound machine was utilized to obtain the site of the basilic vein and the segment that was thrombosed was identified, dissected free, and excised for permanent section analysis. Culture of the content of the basilic vein was taking specifically at the request of the attending physician and also submitted to Pathology in addition to the culture of the granulating skin wound. The wound was now lavaged with copious quantities of normal saline solution and hemostasis was contained with electrocoagulating cautery. It was elected to facilitate earlier healing by attempting a partial reapproximation of the wound with romain retention sutures of 3-0 nylon with two sutures employed. There was space still allowed for packing of the wound with iodoform gauze for hemostatic purposes. It was anticipated the patient will not resume anticoagulation for DVT prophylaxis for 24+ hours. A dry dressing was applied, covered with Kerlix well. The patient was then awakened and transported to the recovery room in a satisfactory condition. Sponge, instrument, and suture count were verified as correct at the end of the procedure. Estimated blood loss during this procedure was less than 20 mL of blood. this dictation will be electronically signed without being read. The surgical assistants were present throughout the procedure to facilitate the exposure and dissection that was necessary. Tae Queen MD
== END 2018-06-04 12:30 | disposition home or self-care (01) | DRG 253 ==
LOC: ED 12:14 → ERH 13:36 → 3RSO 18:06
PROVIDERS: ADMIT Internal Medicine; ATTEND Internal Medicine
PROC: 0DJ08ZZ Inspection of Upper Intestinal Tract, Via Natural or Artificial Opening Endoscopic (ICD-10-PCS; 2018-06-01)
PROC: 0J9D0ZZ Drainage of Right Upper Arm Subcutaneous Tissue and Fascia, Open Approach (ICD-10-PCS; 2018-06-02)
PROC: 05B Upper Veins, Excision (ICD-10-PCS; principal; 2018-06-02 10:30)
DX: I82.619 Acute embolism and thrombosis of superficial veins of unspecified upper extremity (principal); N39.0 Urinary tract infection, site not specified; D62 Acute posthemorrhagic anemia; D68.9 Coagulation defect, unspecified; E87.1 Hypo-osmolality and hyponatremia; L02.413 Cutaneous abscess of right upper limb; L03.113 Cellulitis of right upper limb; N17.9 Acute kidney failure, unspecified; J44.9 Chronic obstructive pulmonary disease, unspecified; B96.1 Klebsiella pneumoniae [K. pneumoniae] as the cause of diseases classified elsewhere; D50.9 Iron deficiency anemia, unspecified; E78.00 Pure hypercholesterolemia, unspecified; E78.1 Pure hyperglyceridemia; E78.5 Hyperlipidemia, unspecified; E86.0 Dehydration; H91.91 Unspecified hearing loss, right ear; I11.9 Hypertensive heart disease without heart failure; K21.0 Gastro-esophageal reflux disease with esophagitis; K25.9 Gastric ulcer, unspecified as acute or chronic, without hemorrhage or perforation; K29.70 Gastritis, unspecified, without bleeding; K59.00 Constipation, unspecified; M46.90 Unspecified inflammatory spondylopathy, site unspecified; M51.16 Intervertebral disc disorders with radiculopathy, lumbar region; M51.37 Other intervertebral disc degeneration, lumbosacral region; N32.89 Other specified disorders of bladder; R31.29 Other microscopic hematuria; T40.2X5A Adverse effect of other opioids, initial encounter; Z79.02 Long term (current) use of antithrombotics/antiplatelets; Z79.82 Long term (current) use of aspirin; Z80.9 Family history of malignant neoplasm, unspecified; Z85.3 Personal history of malignant neoplasm of breast; Z86.72 Personal history of thrombophlebitis; Z86.73 Personal history of transient ischemic attack (TIA), and cerebral infarction without residual deficits; Z87.891 Personal history of nicotine dependence; Z90.10 Acquired absence of unspecified breast and nipple; Z90.710 Acquired absence of both cervix and uterus; I95.9 Hypotension, unspecified; Z88.8 Allergy status to other drugs, medicaments and biological substances